=== PATIENT | male | born 1955 | race Caucasian/White ===

== ENCOUNTER 2017-11-11 05:31 | Inpatient (IN) | payer MEDICAID, SELFPAY ==
[2017-11-04 11:34] VITALS: BP 147/61; PULSE 70; RESP 18; TEMP 36.8; O2SAT 96; BMI 46.1
--- NOTE | 2017-11-04 11:39 | EKG12_ITS ---
Test Reason : Blood Pressure : / mmHG Vent. Rate : 070 BPM Atrial Rate : 070 BPM P-R Int : 222 ms QRS Dur : 112 ms QT Int : 404 ms P-R-T Axes : 023 018 028 degrees QTc Int : 436 ms Sinus rhythm with 1st degree A-V block Septal infarct , age undetermined Abnormal ECG Confirmed by CURTIS HADLEY, SOBEIDA ([id number]), book or script editor JAGDISH PASTRANA ([id number]) on 11/06/2017 1:04:22 PM Referred By: STUART Confirmed By:SOBEIDA ACEVEDO MD
[2017-11-04 13:24] LABS: Hemoglobin A1c 6.9 % (4.2-6.3)
[2017-11-04 13:43] LABS: Anion Gap 7 (5-15); BUN 22 mg/dL (7-18); BUN/Creat Ratio 25.1 RATIO (10-20); Calcium,Total 9.7 mg/dL (8.5-10.1); Chloride 103 mmol/L (98-107); Creatinine, Serum 0.88 mg/dL (0.70-1.30); EST Glomerular Filtration Rate 93 mL/min (>60); Est Glom Filt Rate - Afr Amer 113 mL/min (>60); Estimated Creatinine Clearance 79.29 ml/min; Glucose 95 mg/dL (74-106); Potassium 4.5 mmol/L (3.5-5.1); Sodium Level 139 mmol/L (136-145); Thyroid Stim Hormone (TSH) 0.86 uIU/mL (0.358-3.74)
[2017-11-11] VITALS (12 sets, daily range): BP systolic 119–146; BP diastolic 58–80; PULSE 65–97; RESP 16–20; TEMP 36–37.3; O2SAT 83–100; BMI 46.1
[2017-11-11] MEDS: oxyCODONE HCl Cr 10 MG Tablet PO (06:09)
[2017-11-11 06:25] LABS: Hematocrit 40.2 % (40-54); Hemoglobin 12.4 g/dl (13.0-16.5); Mean Corp Hgb Conc 30.8 g/gl (32-36); Mean Corpuscular Hgb 24.6 pg (27.0-32.0); Mean Corpuscular Volume 79.8 fL (80-94); Mean Platelet Vol. 9.2 fl (6.2-12.0); Platelet Count 252 K/mm3 (150-450); RBC Distribution Width CV 16.6 % (11.6-14.6); RBC Distribution Width SD 48.2 fl (35.1-43.9); Red Blood Count 5.04 M/mm3 (4.6-6.2); White Blood Count 5.6 K/mm3 (4.4-11.0)
[2017-11-11 06:27] LABS: Scan Indicated on CBC? Y/N NO
--- NOTE | 2017-11-11 06:50 | RAD_ITS ---
STUDY: X-RAY - RIGHT SHOULDER REASON FOR EXAM: Male, 62 years old. Postoperative study TECHNIQUE: 2 view(s) of the shoulder. COMPARISON: None. FINDINGS: Shoulder arthroplasty is seen in good alignment. There is degenerative arthrosis of the acromioclavicular joint without inferior osseous spur formation. Normal acromion. The soft tissue structures are unremarkable. Normal visualized pulmonary apex. RAD/Shoulder min 2 Views IMPRESSION: Shoulder arthroplasty is seen in good alignment. There is degenerative arthrosis of the acromioclavicular joint. Electronically Signed: Justus Valentine MD at 12:31 EDT Tel , Service support ,
[2017-11-11 07:00] LABS: Bedside Glucose 132 mg/dL (70-110)
--- NOTE | 2017-11-11 07:15 | SHO_PTH ---
PATIENT: SAUL STEELE LOC: MS3 U#:[id number] AGE/SX: 62/M ROOM: [facility] RE11/11/[address]: Elder Bosch DO : 1955 BED: 1 DIS: 11/12/2017 SPEC #: [id number] RECD: 11/11/17 10:01 STATUS: NOLAN DEREK #: [id number] LADY: 11/11/17 07:[address]: Elder Bosch DEPT: SURGICAL PATHOLOGY RECD BY: Azalia Lakhani ENTERED: 11/11/17 10:09 SP TYPE: HUMERUS OTHR DR: Dr. Akiko Lion MD Tissues: Humerus, NOS Procedures: Decalcification bone/plaque Surgery Specimen Level IV HEADER OPERATION: Shoulder replacement PRE-OP DIAGNOSIS: Nontraumatic complete tear of right rotator cuff, osteoarthritis of right shoulder TISSUE SUBMITTED: Humeral head MICROSCOPIC DIAGNOSIS Humeral head, total shoulder replacement: Humeral head with degenerative osteoarthritic changes. SJ:shen 11/14/17 MICROSCOPIC DESCRIPTION Slides are reviewed. GROSS DESCRIPTION Received is one container labeled with the patient's name and designated humeral head. The specimen consists of a humeral head measuring 6.5 x 6 x 2 cm. No soft tissue is identified. The articular surface shows areas of erosion, eburnation and osteophyte formation. Ceramics Machine Operator sections are submitted in one cassette after decalcification. / GREGG:shen 11/11/17 TC:5 [facility]: [id number], [id number]
[2017-11-11] MEDS: Clindamycin 900 MG/50 ML BAG 75 MG IV ×2 (07:21→15:14)
--- NOTE | 2017-11-11 09:23 | PCM.IMDPSTOP ---
Immediate Post-Op Note Date of Procedure: 11/11/17 Primary Surgeon/Physician: Elder Bosch DO stress analyst: Paulino Orta stress analyst: Margoth Christie Pre-Operative Diagnosis: Right shoulder rotator cuff arthropathy Post-Operative Diagnosis: Same as above Surgery/Procedure Performed:: Right shoulder reverse total shoulder arthroplasty-[place] Description of Surgical Findings:: See dictation Estimated Blood Loss: 100 Specimen's removed: Bone cuts Type of Anesthesia:: General/Regional ASA Class: ASA2 Mod Systematic Disease - Admit VTE Documentation VTE Present on Admission: No VTE Mechan Device Prophylaxis: SCD's, Knee High SMILEY Hose VTE Pharm Prophylaxis ordered?: No Reason prophylaxis not ordered:: Treatment Not Indicated
[2017-11-11 10:31] LABS: Bedside Glucose 151 mg/dL (70-110)
[2017-11-11] MEDS: Lactated Ringers 1,000 ML 75 ML IV (11:15)
[2017-11-11] MEDS: Senna/Docusate Sodium 1 Tablet 2 TABLET PO (11:17)
[2017-11-11] MEDS: Furosemide 20 MG Tablet 10 MG PO (11:17)
[2017-11-11] MEDS: Magnesium Oxide 400 MG Tablet PO (11:18)
[2017-11-11] MEDS: Cyanocobalamin 500 MCG Tablet PO (11:18)
[2017-11-11] MEDS: traMADol 50 MG Tablet PO ×2 (11:26→20:56)
[2017-11-12] MEDS: oxyCODONE 5 MG Tablet 10 MG PO ×2 (00:34→06:27)
[2017-11-12] MEDS: Clindamycin 900 MG/50 ML BAG 75 MG IV (00:35)
[2017-11-12] MEDS: Lactated Ringers 1,000 ML 75 ML IV (00:36)
[2017-11-12 02:20] VITALS: BP 143/73; PULSE 101; RESP 18; TEMP 37.5; O2SAT 94
[2017-11-12] MEDS: Levothyroxine 100 MCG Tablet 200 MCG PO (06:27)
--- NOTE | 2017-11-12 07:28 | PCM.DC.ORTHO ---
Discharge Activity: Return to Normal Activity, May not drive while taking narcotic pain medications., May Shower May shower in (days): 1 Ice area for (Minutes): 20 Lifting Restrictions: No lifting at this time. Additional Activity Instructions:: Active assist range of motion as tolerated in all planes. Sling for comfort. Call your doctor if your incision/area has: Continuous Slow Oozing, Sudden Increased Bleeding, Increased Pain/ Swelling, Increased Redness, Foul Smelling Discharge, Swelling at the incision site Call your doctor if you observe: Fever of 101 or Higher, Coldness, Increased Pain, Numbness or Tingling, Change in Color, Inability to urinate, Inability to have a bowel movement, Using more than one pad per hour, Shortness of breath, Dizziness, Fainting spells, Swelling in the ankles, Chest pain, Prolonged hiccoughing, Increased palpitations (irregular heartbeat), Calf discomfort, Uncontrolled pain Suture Line Care: Avoid Pulling/Pushing, Avoid Pinching/Bending Change Dressing in (Days):: 5 Remove Dressing in (days):: 5 Cleanse incision/area with: Soap & Water Additional Dressing/Incision Instructions:: Dressing stays on for a total 7 days. May shower at this time. Do not submerge wound. Allergies/Adverse Reactions: Allergies Penicillins Allergy (Verified 11/11/17 06:59) Unknown Medications to take at Discharge Amlodipine [Norvasc] 5 mg PO DAILY 10/31/16 Biotin 10,000 mcg PO BID 10/31/16 Bisacodyl [Dulcolax] 10 mg PO DAILY 10/31/16 Calcium Citrate/Vitamin D3 [Calcium Citrate-Vit D3 Tablet] 1 each PO BID 10/31/16 Celecoxib [Celebrex] 200 mg PO DAILY 10/31/16 Cholecalciferol (Vitamin D3) [Vitamin D3] 2,000 unit PO DAILY 10/31/16 Cyanocobalamin [Vitamin B12] 500 mcg PO DAILY@0800 10/31/16 Fluticasone 0.05% [Flonase Nasal [place]] 1 spray NASAL PRN PRN 10/31/16 Levothyroxine [Synthroid] 175 mcg PO SUTUTHSA 10/31/16 Levothyroxine [Synthroid] 200 mcg PO MOWEFR 10/31/16 Lisinopril [Zestril] 20 mg PO DAILY 10/31/16 Magnesium 400 mg PO DAILY 10/31/16 [place]-3/Dha/Epa/Fish Oil [Fish Oil 1,400 mg Softgel] 1 each PO DAILY 10/31/16 Ranitidine [Zantac] 150 mg PO DAILY 10/31/16 Torsemide [Demadex] 5 mg PO DAILY 10/31/16 Metformin HCl [Glucophage] 500 mg PO BIDCM 11/04/17 Docusate Sodium [Colace] 100 mg PO BID PRN PRN #10 cap 11/12/17 Oxycodone HCl/Acetaminophen [Percocet 5/325] 1 - 2 tablet PO Q4H PRN PRN #60 tablet 11/12/17 proMETHazine tablet [Phenergan] 25 mg PO Q4H PRN PRN #10 tab 11/12/17 The following prescriptions were given: Oxycodone HCl/Acetaminophen [Percocet 5/325] 1 - 2 tablet PO Q4H PRN PRN #60 tablet PRN Reason: Pain proMETHazine tablet [Phenergan] 25 mg PO Q4H PRN PRN #10 tab PRN Reason: Nausea Docusate Sodium [Colace] 100 mg PO BID PRN PRN #10 cap PRN Reason: Constipation Primary Care Physician: Akiko Lion MD [Primary Care Provider] - Please Follow Up With: Elder Bosch DO When: call [facility] for appt for 2 weeks Proposed Discharge Date: 11/12/17
--- NOTE | 2017-11-12 07:29 | PCM.OPRPT ---
Report of Operation Date of Procedure: 11/11/17 Pre-Operative Diagnosis: Right shoulder rotator cuff arthropathy Post-Operative Diagnosis: Same as above Surgery/Procedure Performed:: Right shoulder reverse total shoulder arthroplasty-[place] Description of Surgical Findings:: 62-year-old male with a history of right shoulder rotator cuff arthropathy. Having failed conservative measures and continued pain and difficulty with the right shoulder the patient elected for right shoulder reverse total shoulder arthroplasty. Patient was counseled and consented for the aforementioned procedure he was met in the holding area where the right upper extremity was marked and identified by the with surgeon. Patient was taken to the operating room in satisfactory condition with somewhat to place to identify patient operative procedure and limb. Patient received preoperative clindamycin and 1 g of TXa. Patient was then placed into a gentle lazy beachchair position of about 45-50? of head elevation. He was then prepped and draped in usual fashion. Patient underwent a standard deltopectoral approach with sharp dissection down to soft tissues and Bovie cautery 20 bleeding. The cephalic vein was retracted laterally. At that point time the clavipectoral fascia was identified. We could not make good identifications of the 3 sister vessels as we are just cautious during main portion the procedure. The coracoid the strap muscles were identified. There were released and gentle blunt dissection was undertaken to mobilize the soft tissues in the subscapular bursa. The CA ligament was released off the coracoid for better visualization. Patient did not have a biceps tendon had previously ruptured. We did identify the lesser tuberosity and then performed a opening of the capsule. The patient has significantly attenuated subscapularis was contracted and very thin I did not feel subscapularis reattachment will be necessary. At that point time we did our capsular release staying on the humeral neck moving down to resolve the fibers of the latissimus and then started to do gentle external rotation. As a capsule had been opened up that was remnant patient had a large return of sub-acromial bursal fluid and joint fluid. The head was then presented the patient had a bald head without really only remnant of his teres minor for rotator cuff tissue. We subsequent performed a standard 135? humeral head cut with using the trans-epicondylar axis to maintain her version. At that point time appropriate retractors were placed in order perform a circumferential capsule release around the glenoid to mobilize any remnant labral tissue for better visualization of the glenoid and also to allow posterior inferior placement of the head. Patient's glenoid did not show significant wear patterns or eccentric changes. At that point time with appropriate retractors in place in the head out of the way the initial central pin was placed with a 10? cephalic tilt. We then reamed accordingly in order to place a 28 mm baseplate. The baseplate was then fixed with a central cancellus screw for compression which was excellent. We then used 3 of the [address] locking screws for additional stability. This was all done using standard AO technique through the guide system of the [place] reunion shoulder system that we used. After copious irrigation the root of the joint and removal of any excess remnant tissues and loose bodies we then impacted a 32 mm glenoid sphere using standard technique. At that point time the humeral head was then re-subluxed anteriorly and we began preparation for the humeral stem. Canal finder's were introduced and so we sounded to a 12 mm position. At which point time we trialed up to a 12 mm stem and found this to be adequate for position and stability. We then trialed using a 32 mm diameter cup and eventually sized up to a +6 Ronel with excellent stability no signs of any instability or shock no signs of any inferior impingement or subscapular impingement through a range of motion. The hip was then dislocated trial components were removed and the joint re-irrigated copiously prior to implantation of our final components. We then impacted a size 12 stem 128 mm in overall length. And then impacted our Ronel head complex again with a +6 offset. Shoulder was then reduced stability rechecked and confirmed it would began our closure at that time. Again due to the subscapularis being very thin we did not reapproximate it. We subsequent band began soft tissue closure of the deltopectoral fascia using a #1 Vicryl in a running Krak?w technique to close down space. We then reapproximated the soft tissues with 3-0 Vicryl running subicular Monocryl Dermabond application and then subsequent placement of a Silverlon dressing. I was scrubbed and available time during our procedure. We had no drains or complications. Implants included the [place] reunion reverse total shoulder arthroplasty system with associated 20 mm baseplate, 32 mm glenoid sphere, multiple locking screws for the baseplate a #12 stem 20 mm in length, with an associated 32 mm humeral cup and a X3 humeral insert 32 mm +6. Patient admitted to the floor for 24 hours of IV antibiotics appropriate IV and p.o. pain medication DVT prophylaxis to include SCDs teds and early aggressive range of motion. Patient has a history of gastric bypass and is unable to take aspirin or NSAIDs. Any issues please contact me. There will be no restrictions to his range of motion at this point time as a subscapularis was not repaired. Patient will follow me in 2 weeks upon discharge to start outpatient physical therapy. transportation clerk: Paulino Orta transportation clerk: Margoth Christie Type of Anesthesia:: General/Regional Specimen's removed: Bone cuts Estimated Blood Loss (mL): 100 Grafts/Implants Used: [place] reunion reverse total shoulder arthroplasty system - Complications None - Admit VTE Documentation VTE Present on Admission: No VTE Mechan Device Prophylaxis: SCD's, Knee High SMILEY Hose VTE Pharm Prophylaxis ordered?: No Reason prophylaxis not ordered:: Medical Contraindication - History of gastric bypass and cannot have aspirin or NSAIDs.
--- NOTE | 2017-11-12 07:43 | OP.PCM_ITS ---
Report of Operation Date of Procedure: 11/11/17 Pre-Operative Diagnosis: Right shoulder rotator cuff arthropathy Post-Operative Diagnosis: Same as above Surgery/Procedure Performed:: Right shoulder reverse total shoulder arthroplasty -[place] Description of Surgical Findings:: 62-year-old male with a history of right shoulder rotator cuff arthropathy. Having failed conservative measures and continued pain and difficulty with the right shoulder the patient elected for right shoulder reverse total shoulder arthroplasty. Patient was counseled and consented for the aforementioned procedure he was met in the holding area where the right upper extremity was marked and identified by the with surgeon. Patient was taken to the operating room in satisfactory condition with somewhat to place to identify patient operative procedure and limb. Patient received preoperative clindamycin and 1 g of TXa. Patient was then placed into a gentle lazy beachchair position of about 45-50? of head elevation. He was then prepped and draped in usual fashion. Patient underwent a standard deltopectoral approach with sharp dissection down to soft tissues and Bovie cautery 20 bleeding. The cephalic vein was retracted laterally. At that point time the clavipectoral fascia was identified. We could not make good identifications of the 3 sister vessels as we are just cautious during main portion the procedure. The coracoid the strap muscles were identified. There were released and gentle blunt dissection was undertaken to mobilize the soft tissues in the subscapular bursa. The CA ligament was released off the coracoid for better visualization. Patient did not have a biceps tendon had previously ruptured. We did identify the lesser tuberosity and then performed a opening of the capsule. The patient has significantly attenuated subscapularis was contracted and very thin I did not feel subscapularis reattachment will be necessary. At that point time we did our capsular release staying on the humeral neck moving down to resolve the fibers of the latissimus and then started to do gentle external rotation. As a capsule had been opened up that was remnant patient had a large return of sub- acromial bursal fluid and joint fluid. The head was then presented the patient had a bald head without really only remnant of his teres minor for rotator cuff tissue. We subsequent performed a standard 135? humeral head cut with using the trans-epicondylar axis to maintain her version. At that point time appropriate retractors were placed in order perform a circumferential capsule release around the glenoid to mobilize any remnant labral tissue for better visualization of the glenoid and also to allow posterior inferior placement of the head. Patient's glenoid did not show significant wear patterns or eccentric changes. At that point time with appropriate retractors in place in the head out of the way the initial central pin was placed with a 10? cephalic tilt. We then reamed accordingly in order to place a 28 mm baseplate. The baseplate was then fixed with a central cancellus screw for compression which was excellent. We then used 3 of the [address] locking screws for additional stability. This was all done using standard AO technique through the guide system of the [place] reunion shoulder system that we used. After copious irrigation the root of the joint and removal of any excess remnant tissues and loose bodies we then impacted a 32 mm glenoid sphere using standard technique. At that point time the humeral head was then re-subluxed anteriorly and we began preparation for the humeral stem. Canal finder's were introduced and so we sounded to a 12 mm position. At which point time we trialed up to a 12 mm stem and found this to be adequate for position and stability. We then trialed using a 32 mm diameter cup and eventually sized up to a +6 Ronel with excellent stability no signs of any instability or shock no signs of any inferior impingement or subscapular impingement through a range of motion. The hip was then dislocated trial components were removed and the joint re- irrigated copiously prior to implantation of our final components. We then impacted a size 12 stem 128 mm in overall length. And then impacted our Ronel head complex again with a +6 offset. Shoulder was then reduced stability rechecked and confirmed it would began our closure at that time. Again due to the subscapularis being very thin we did not reapproximate it. We subsequent band began soft tissue closure of the deltopectoral fascia using a #1 Vicryl in a running Krak?w technique to close down space. We then reapproximated the soft tissues with 3-0 Vicryl running subicular Monocryl Dermabond application and then subsequent placement of a Silverlon dressing. I was scrubbed and available time during our procedure. We had no drains or complications. Implants included the [place] reunion reverse total shoulder arthroplasty system with associated 20 mm baseplate, 32 mm glenoid sphere, multiple locking screws for the baseplate a #12 stem 20 mm in length, with an associated 32 mm humeral cup and a X3 humeral insert 32 mm +6. Patient admitted to the floor for 24 hours of IV antibiotics appropriate IV and p.o. pain medication DVT prophylaxis to include SCDs teds and early aggressive range of motion. Patient has a history of gastric bypass and is unable to take aspirin or NSAIDs. Any issues please contact me. There will be no restrictions to his range of motion at this point time as a subscapularis was not repaired. Patient will follow me in 2 weeks upon discharge to start outpatient physical therapy. test deck supervisor: Paulino Orta test deck supervisor: Margoth Christie Type of Anesthesia:: General/Regional Specimen's removed: Bone cuts Estimated Blood Loss (mL): 100 Grafts/Implants Used: [place] reverse total shoulder arthroplasty system - Complications None - Admit VTE Documentation VTE Present on Admission: No VTE Mechan Device Prophylaxis: SCD's, Knee High SMILEY Hose VTE Pharm Prophylaxis ordered?: No Reason prophylaxis not ordered:: Medical Contraindication - History of gastric bypass and cannot have aspirin or NSAIDs.
--- NOTE | 2017-11-12 07:44 | PCM.PN.ORT ---
Subjective: Postop day 1 status post right reverse total shoulder arthroplasty. No issues overnight. Pain is controlled at this point time. Patient will see OT and PT and they be discharged home later today as long as his pain is controlled. Currently sitting upright in chair using sling which was removed to allow him to start some gentle range of motion about the elbow and shoulder joint. - Physical Exam General: Alert, Oriented x3, Cooperative, No apparent distress Musculoskeletal: - - Patient remains distally neurovascular intact. Muscle cutaneous axillary nerve function is 5 out of 5. He has no expanding hematoma. Lab values are pending. Hardware otherwise well seated well-placed on x-ray review. Vital Signs Temp Pulse Resp BP Pulse Ox 99.5 F H 101 H 18 143/73 H 94 11/12/17 02:20 11/12/17 02:20 11/12/17 02:20 11/12/17 02:20 11/12/17 02:20 Oxygen Flow Rate (L/min) 2 Oxygen Delivery Method Room Air Weight: 294 lb 12.128 oz Body Mass Index (BMI) 46.1 Finger Stick Blood Glucose 151 Intake and Output for Last 24 Hours 11/10/17 11/11/17 11/12/17 23:59 23:59 23:59 Intake Total 2567 / 2567 1727 / 1727 Output Total 1025 / 1025 Balance 2567 / 2567 702 / 702 POC Glucose 11/11/17 10:17 POC Glucose 151 H Medical Necessity - Tobacco Use Smoking Status: Former smoker Assessment/Plan Assessment: Aftercare orthopedics status post right reverse total shoulder arthroplasty for rotator cuff arthropathy. Doing well. Plan: At this point time patient will be able to be discharged home after OT PT evaluation today. Discharge medications have been placed to the [facility] pharmacy. Patient will follow with me in 2 weeks for a wound check. He can remove his dressing in 5 days but may shower at this time. Patient is encouraged to use a sling really only for comfort otherwise he can start active and active assist range of motion as tolerated. Any major issues please contact me.
[2017-11-12 08:02] VITALS: BP 131/74; PULSE 93; RESP 18; TEMP 36.7; O2SAT 94
[2017-11-12 08:09] LABS: Absolute Lymphocyte Count 1.37 X10^3/ul (0.83-4.51); Absolute Neutrophil Count 7.6 X10^3/uL (2.0-7.7); Basophil# 0.02 X10^3/uL; Basophil% 0.2 % (0-1); Eosinophil# 0.08 X10^3/uL; Eosinophils% 0.8 % (0-5); Hematocrit 34.9 % (40-54); Lymphocyte # 1.37 X10^3/ul (4.0); Lymphocyte % 13.6 % (19-41); Mean Corp Hgb Conc 31.5 g/gl (32-36); Mean Corpuscular Hgb 25.1 pg (27.0-32.0); Mean Corpuscular Volume 79.5 fL (80-94); Mean Platelet Vol. 9.2 fl (6.2-12.0); Monocyte# 1.06 X10^3/uL; Monocyte% 10.5 % (0-10); Neutrophil # 7.56 X10^3/uL (2.7-7.7); Neutrophil % 74.7 % (47-70); Platelet Count 254 K/mm3 (150-450); RBC Distribution Width CV 16.7 % (11.6-14.6); RBC Distribution Width SD 47.8 fl (35.1-43.9); Red Blood Count 4.39 M/mm3 (4.6-6.2); White Blood Count 10.1 K/mm3 (4.4-11.0)
[2017-11-12] MEDS: Cyanocobalamin 500 MCG Tablet PO (08:11)
[2017-11-12 08:19] LABS: POSITIVE COUNT NO; POSITIVE DIFFERENTIAL NO; POSITIVE MORPHOLOGY NO
[2017-11-12 08:24] LABS: Anion Gap 5 (5-15); BUN 13 mg/dL (7-18); BUN/Creat Ratio 17.9 RATIO (10-20); Calcium,Total 8.3 mg/dL (8.5-10.1); Chloride 102 mmol/L (98-107); Creatinine, Serum 0.73 mg/dL (0.70-1.30); EST Glomerular Filtration Rate 115 mL/min (>60); Est Glom Filt Rate - Afr Amer 139 mL/min (>60); Estimated Creatinine Clearance 95.58 ml/min; Glucose 137 mg/dL (74-106); Potassium 4.3 mmol/L (3.5-5.1); Sodium Level 138 mmol/L (136-145)
[2017-11-12] MEDS: Lisinopril 20 MG Tablet PO (10:11)
[2017-11-12] MEDS: Celecoxib 200 MG Capsule PO (10:11)
[2017-11-12] MEDS: Furosemide 20 MG Tablet 10 MG PO (10:12)
[2017-11-12] MEDS: Magnesium Oxide 400 MG Tablet PO (10:12)
[2017-11-12] MEDS: amLODIPine 5 MG Tablet PO (10:12)
--- NOTE | 2017-11-12 10:15 | CASEMGMT ---
RN FORD Face to Face with patient for initial transition planning/care coordination assessment. RN CM introduced self and role at [facility]. Patient sitting in chair, alert and oriented, at bedside. Patient willing to participate in assessment and is able to answer all questions appropriately. Care providers, pharmacy, and demographics verified. See link attached. Patient wishes to discharge home, denies need for home health at this time. Patietn states he has no further needs or concerns at this time. CM to follow for discharge planning needs that may arise. Disposition Plan: Patient to discharge home with family support and follow-up plans in place.
== END 2017-11-12 11:01 | disposition home or self-care (01) | DRG 491 ==
PROVIDERS: Anesthesiology; Admitting Provider Orthopaedic Surgery; Family Provider Family Medicine; PCP Family Medicine; Visit Provider Orthopaedic Surgery
PROC: (CPT 23472; principal; 2017-11-11 06:45)
DX: M19.011 Primary osteoarthritis, right shoulder (principal); M75.121 Complete rotator cuff tear or rupture of right shoulder, not specified as traumatic; I10 Essential (primary) hypertension; G47.30 Sleep apnea, unspecified; K21.9 Gastro-esophageal reflux disease without esophagitis; E11.9 Type 2 diabetes mellitus without complications; E06.9 Thyroiditis, unspecified; Z96.611 Presence of right artificial shoulder joint; Z98.84 Bariatric surgery status; Z87.891 Personal history of nicotine dependence; Z87.442 Personal history of urinary calculi; Z79.84 Long term (current) use of oral hypoglycemic drugs; Z79.899 Other long term (current) drug therapy
CPT/HCPCS: 36415; 73030; 80048; 82962; 83036; 84443; 85025; 85027; 87081; 88305; 88311; 97116; 97162; 97166; 97530; J7120; J2405

== ENCOUNTER → 2017-12-31 12:32 | Outpatient (CLI) | payer MEDICAID, SELFPAY ==
--- NOTE | 2017-12-31 12:34 | RAD_ITS ---
STUDY: X-RAY - RIGHT SHOULDER REASON FOR EXAM: Replacement follow-up. TECHNIQUE: 3 view(s) of the shoulder. COMPARISON: Radiographs 11/11/2017 and 09/12/2015. FINDINGS: There is a reverse shoulder arthroplasty without evidence of complication. There is acromioclavicular arthrosis. Normal acromion. There is a chronic ossification at the posterior aspect of the shoulder demonstrated on the scapular Y view and unchanged dating back to the preoperative study. Normal visualized pulmonary apex. RAD/Shoulder min 2 Views IMPRESSION: Uncomplicated right shoulder arthroplasty. Electronically Signed: Tomasz Dan MD at 10:51 EDT Tel , Service support ,
== END ==
PROVIDERS: Family Provider Family Medicine; PCP Family Medicine; Visit Provider Orthopaedic Surgery
DX: M25.511 Pain in right shoulder (principal)
CPT/HCPCS: 73030

== ENCOUNTER → 2018-04-02 10:20 | Outpatient (CLI) | payer MEDICAID, SELFPAY ==
--- NOTE | 2018-04-02 10:21 | RAD_ITS ---
STUDY: X-RAY - RIGHT SHOULDER REASON FOR EXAM: Male, 62 years old. Follow-up after right total shoulder arthroplasty. TECHNIQUE: 3 view(s) of the shoulder. COMPARISON: December 31, 2017 FINDINGS: There is stable generalized osteopenia. A right total shoulder arthroplasty is stable in position and alignment. No complications are noted. There is arthrosis of the acromioclavicular joint unchanged. The soft tissue structures are unremarkable. Normal visualized pulmonary apex. RAD/Shoulder min 2 Views IMPRESSION: Stable osteopenia with uncomplicated total shoulder arthroplasty. Stable mild arthrosis of the acromioclavicular joint. Electronically Signed: Leonardo Morfin MD at 17:14 EDT , Service support ,
== END ==
PROVIDERS: Family Provider Family Medicine; PCP Family Medicine; Visit Provider Orthopaedic Surgery
DX: L02.413 Cutaneous abscess of right upper limb (principal); L03.119 Cellulitis of unspecified part of limb
CPT/HCPCS: 73030; 87070; 87075; 87205

== ENCOUNTER → 2018-04-03 11:48 | Outpatient (CLI) | payer MEDICAID, SELFPAY ==
[2018-04-03 13:18] LABS: M R Staph aureus DNA By PCR Negative (Negative); Probe Check PASS; Specimen Processing Control PASS; Staph aureus DNA By PCR NEGATIVE (Negative)
== END ==
PROVIDERS: Visit Provider Specialist
DX: L02.413 Cutaneous abscess of right upper limb (principal)
CPT/HCPCS: 87205; 87640

== ENCOUNTER → 2018-04-06 08:30 | Outpatient (CLI) | payer MEDICAID, SELFPAY ==
[2018-04-06 08:19] VITALS: BP 144/81; PULSE 78; RESP 18; TEMP 36.7; O2SAT 97; BMI 46.5
[2018-04-06 09:38] LABS: Absolute Lymphocyte Count 1.79 X10^3/ul (0.83-4.51); Absolute Neutrophil Count 5.9 X10^3/uL (2.0-7.7); Basophil# 0.02 X10^3/uL; Basophil% 0.2 % (0-1); Eosinophils% 1.2 % (0-5); Hematocrit 37.7 % (40-54); Hemoglobin 11.4 g/dl (13.0-16.5); Lymphocyte # 1.79 X10^3/ul (4.0); Lymphocyte % 20.9 % (19-41); Mean Corp Hgb Conc 30.2 g/gl (32-36); Mean Corpuscular Hgb 23.2 pg (27.0-32.0); Mean Corpuscular Volume 76.8 fL (80-94); Mean Platelet Vol. 8.8 fl (6.2-12.0); Monocyte# 0.76 X10^3/uL; Monocyte% 8.9 % (0-10); Neutrophil # 5.86 X10^3/uL (2.7-7.7); Neutrophil % 68.6 % (47-70); Platelet Count 323 K/mm3 (150-450); RBC Distribution Width CV 16.7 % (11.6-14.6); Red Blood Count 4.91 M/mm3 (4.6-6.2); White Blood Count 8.6 K/mm3 (4.4-11.0)
[2018-04-06 09:39] LABS: POSITIVE COUNT NO; POSITIVE DIFFERENTIAL NO; POSITIVE MORPHOLOGY NO
[2018-04-06 10:09] LABS: Hemoglobin A1c 7.2 % (4.2-6.3)
[2018-04-06 10:12] LABS: BUN 21 mg/dL (7-18); Creatinine, Serum 0.73 mg/dL (0.70-1.30); Estimated Creatinine Clearance 95.58 ml/min; Glucose 144 mg/dL (74-106)
[2018-04-06 10:13] LABS: Anion Gap 9 (5-15); BUN/Creat Ratio 28.8 RATIO (10-20); Calcium,Total 9.2 mg/dL (8.5-10.1); Chloride 102 mmol/L (98-107); EST Glomerular Filtration Rate 115 mL/min (>60); Est Glom Filt Rate - Afr Amer 139 mL/min (>60); Potassium 4.2 mmol/L (3.5-5.1); Sodium Level 139 mmol/L (136-145); Thyroid Stim Hormone (TSH) 1.17 uIU/mL (0.358-3.74)
--- NOTE | 2018-04-06 12:44 | HP.PCM_ITS ---
History and Physical DATE OF SURGERY: 04/07/2018 SCHEDULED PROCEDURE: irrigation and debridement with placement of antibiotic spacer right shoulder HISTORY OF PRESENT ILLNESS: . Patient is left-hand dominant. Pain is been present for the past 4 months. Patient states he initially had his shoulder pain improved following surgery. However he developed redness around the incision at the time of surgery. He began getting swelling in this area 2 months postoperatively. Patient then began getting drainage over this area. He did go to urgent care and was placed on antibiotics. Patient had an abscess in this area. This was drained which appeared to be purulent. Cultures were sent. Patient has had a previous history of staph infection after her abdominal surgery. Patient did have a previous right reverse total shoulder arthroplasty by Dr. Bosch in November 2017. He currently denies any numbness and tingling. Patient has medical history pertinent for type 2 diabetes mellitus as well as hypertension and peripheral vascular disease. He currently denies any chest pain, shortness of breath, fevers chills, recent infections. Patient has also had a previous history of gastric sleeve in 2013. He has had multiple total joint replacements in the past. REVIEW OF SYSTEMS: ROS: Const: Denies change in appetite, fever and weight change. CV: Denies chest pain, heart murmur and irregular heartbeat. Resp: Denies cough, pneumonia, shortness of breath, tuberculosis and wheezing. GI: Reports diarrhea and heartburn, but denies constipation, nausea, rectal itching, bloody stools and vomiting. : Denies incontinence. Musculo: Reports leg swelling, but denies pain, trouble walking and weakness. Skin: Denies Raynaud's, history of shingles and tattoo. Neuro: Denies ambulatory dysfunction, dizziness, numbness/tingling and tremor. Psych: Denies anxiety, insomnia and stress. Hesham/Lymph: Denies anemia, bleeding/bruising tendency and past transfusion. Reviewed, no changes. PAST MEDICAL HISTORY: Advance Care Plan: No Advance Directives Effective Date: 04/03/2018 PMH: Medical Problems: Arthritis, Diabetes, Hard of Hearing, High Blood Pressure, Thyroid Disease, Vascular Disease/ Peripheral Accidents: None Surgical Hx: Knee Arthroscopy Lt - (1980) Hip Replacement LT - (05/2017) Knee Replacement Lt, Knee Replacement Rt Gastric Sleeve - (2013) DR. FORD@[facility] RT Reverse Total Shoulder - (11/2017) DR BOSCH--[facility] Anesthesia Complications: None Assistive Devices: Glasses, Hearing Aid Reviewed, no changes. 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 Personal Habits: Cigarette Use: Former.Smokeless Tobacco: Never Used Smokeless Tobacco.Alcohol: Has consumed alcohol in the past.Drug Use: Former Illegal Drug User - (04/03/2018), Denies Use.Enjoy Exercising: Exercises 1-3 x/month. Reviewed, no changes. VITALS: Ht: 66 Wt: 301lb Wt k.534 BMI: 48.6 BP: 138/80 Pulse: 78 Resp: 22 T: 99.2 T: 37.3C ALLERGIES: No Known Drug Allergy MEDICATIONS: Metformin HCL 500 mg 1 tab PO bid, Lisinopril 20 mg 1 tab PO daily, Amlodipine Besylate 5 mg 1 tab PO daily, Levothyroxine Sodium 175 mcg 1 tab PO friday, ,friday and friday, Celecoxib 200 mg 1 cap PO daily, Oxybutynin Chloride ER 10 mg 1 tab PO daily, Vitamin B12 1 tab PO daily, Magnesium 250 mg 1 tab PO daily, Vitamin D 1 tab PO daily, Fish Oil 1 tab PO bid, Multivitamin 1 tab PO daily, Levothyroxine Sodium 200 mcg 1 tab PO friday,friday and friday, Eq Chlortabs 4 mg 1 tab PO bid PRE-OP EXAM: General appearance:NORMAL Other: Eyes: Conjunctivae and lids: NORMAL Pupils: ERR Ears, Nose, Mouth, and Throat: NORMAL Other: Inspection of lips, teeth and gums: NORMAL Other: Neck: Examination of neck: no masses noted. Respiratory: Assessment of respiratory effort: NORMAL Other: Auscultation of lungs: clear to auscultation no wheezes, rhonchi or rales. Cardiovascular: Auscultation of heart: regular rate and rhythm, no murmurs, gallops or rubs. Exam of carotid arteries: NORMAL Other: Gastrointestinal: Exam of abdomen: soft, nontender, nondistended bowel sounds present. PHYSICAL EXAMINATION: Evaluation of right shoulder shows area approximately middle one third of the incision with swelling. Range of motion right shoulder external rotation to neutral and internal rotation to gluteus. Forward elevation to 110. Sensation intact to light touch. IMAGING STUDIES: Previous x-rays at [facility] show a well aligned reverse total shoulder arthroplasty. IMPRESSION: 1. Painful right total shoulder arthroplasty with abscess and drainage from incision 2. Type 2 diabetes mellitus 3. Hypertension 4. Peripheral vascular disease 5. Thyroid disease PLAN: Dr. Mix did discuss and review with the patient all treatment options including surgical versus nonsurgical options. Patient does wish to proceed with the above-stated procedure. Potential risks, benefits, and complications of the procedure were discussed in detail including but not limited to , infection, nerve and blood vessel damage, persistent pain, numbness, tingling, paresthesias, blood clot, pulmonary embolism, and requirement for possible further surgery. The patient expressed full understanding and has no further questions for the doctor. Patient does agree to proceed with the above-stated procedure and has signed the surgery consent form. ___ I have re-examined the patient. There are no clinical changes since date of exam. ___ See progress notes for changes. ___ Dictated on admission Date: Time: Signature:
== END ==
LOC: ACINP 04-08 10:30 → PAT 04-17 11:43
PROVIDERS: Family Provider Family Medicine; PCP Family Medicine; Referring Provider Specialist; Visit Provider Specialist
DX: Z01.818 Encounter for other preprocedural examination (principal); E07.9 Disorder of thyroid, unspecified; E11.9 Type 2 diabetes mellitus without complications
CPT/HCPCS: 36415; 80048; 83036; 84443; 85025; 87081; J7120; J3260

== ENCOUNTER → 2018-04-29 10:06 | Day surgery (SDC) | payer MEDICAID, SELFPAY ==
[2018-04-29] VITALS (8 sets, daily range): BP systolic 123–162; BP diastolic 67–82; PULSE 44–94; RESP 15–18; TEMP 35.9–37.4; O2SAT 88–100; BMI 46.5
--- NOTE | 2018-04-29 | ABS_PTH ---
PATIENT: SAUL STEELE LOC: U#:[id number] AGE/SX: 69/M ROOM: RE04/29/[address]: Dr. Kenny Mix MD : [id number] BED: DIS: SPEC #: [id number] RECD: 04/29/18 14:03 STATUS: NOLAN DEREK #: [id number] LADY: 04/29/18 00:[address]: Kenny Mix DEPT: SURGICAL PATHOLOGY RECD BY: Minh Byrne ENTERED: 04/29/18 14:03 SP TYPE: Abscess OTHR DR: Dr. Akiko Lion MD Tissues: Shoulder, NOS Procedures: Surgery Specimen Level III HEADER OPERATION: Right shoulder, superficial I & D, excision sinus tract PRE-OP DIAGNOSIS: Painful right total shoulder arthroplasty with abscess and drainage from incision TISSUE SUBMITTED: Sinus tract right shoulder MICROSCOPIC DIAGNOSIS Sinus tract right shoulder: Pieces of skin and soft tissue with focal ulceration, associated acute inflammation and granulation tissue reaction. GREGG:shen 04/30/18 MICROSCOPIC DESCRIPTION Slides are reviewed. GROSS DESCRIPTION Received in fixative is one container labeled with the patient's name and designated sinus tract right shoulder. The specimen consists of a piece of mcarthur-white skin ellipse measuring 2 x 1 cm and up to 0.5 cm in thickness. A raised pink nodule is noted on the surface and measures 0.5 cm in greatest dimension. The specimen is inked, serially sectioned and submitted entirely in one cassette. / GREGG:shen 04/29/18 TC:2 CPT: 68106
[2018-04-29] MEDS: Acetaminophen 500 MG Tablet 1000 MG PO (10:37)
[2018-04-29] MEDS: oxyCODONE HCl Cr 10 MG Tablet PO (10:38)
[2018-04-29] MEDS: Celecoxib 200 MG Capsule 400 MG PO (10:38)
--- NOTE | 2018-04-29 12:46 | PCM.OPRPT ---
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 Draining sinus tract communicated with this. Cultures were sent. This did not communicate deep to the fascia or muscle. furniture sander: Rudy Holliday Type of Anesthesia:: General Anesthesiologist: Dionisio Garcia Special Medications: 2 g Ancef, 1 g TXA at incision, 1 g TXA closure, 10 mg Decadron, joint cocktail (5 mg Duramorph, 30 mL of 0.5% Ropivicaine, 1000 units of epinephrine, 30 mg of Toradol), 1 g vancomycin IV throughout case Specimen's removed: Sinus tract was sent to pathology, 2 culture specimens were sent to microbiology Estimated Blood Loss (mL): 25 Fluids Replaced: 400 mL crystalloid Description of Procedure: On the date of the procedure patient's right shoulder was marked in the preoperative area. Patient was brought back to the operating room where there transferred to the table in the supine position. Anesthesia assumed control the C-spine airway and administered general anesthetic. They remain to control the C-spine and airway throughout the remainder the procedure. Patient was placed in the beachchair position at about 40 degrees inclination. Head was appropriately secured. All bony prominences were identified and well-padded. At this time the right upper extremity was prepped in a sterile fashion. The surgeon scrubbed. Upon reentering the room the right upper extremity was draped in a standard orthopedic fashion. Timeout was called. When agreed upon the side, the site, the procedure to be performed, patient's identity and antibiotics given. Skin was marked out using previous incision ellipsing out the superficial area of the sinus tract which was healed over at this time. Ioban dressing was placed. Incision was then taken down through skin subtenons tissue fat down to fascia. We excised the sinus tract and sent to pathology. We then follow the sinus tract down to the fascia. Hemostasis was obtained. Wound was vikram eat out normal saline 3 L under low-pressure lavage. At this time we are unable to probe deep to the fascia through the intermuscular plane. The lining of the cyst was aggressively debrided and removed. 2 cultures were sent 1 of the lining 1 of the fluid. Once the lining had been appropriately debrided and excised excising skin subcutaneous tissue fat down to fascia we could not probe through the fascia communicating with the joint of the prosthesis. Based on the timing of the patient's sinus which was 2 months after his initial surgery lack of other signs of infection as well as lack of previous cultures will patient was not on antibiotics and based on our preoperative discussion in the office we elected to stop at this point. Wound was once again copiously irrigated irrigated out with normal saline. Deep tissues were closed with #1 Vicryl. Skin was closed with 2-0 Vicryl and nylon. Sterile dressing was placed. Patient was awakened by anesthesia and transferred to the PACU for recovery under stable condition. Postop plan: Patient will remain on doxycycline until final cultures are received. Patient understands further concerns of infection would likely lead to more aggressive treatment for prosthetic infection. - Complications None - Admit VTE Documentation VTE Present on Admission: No VTE Mechan Device Prophylaxis: SCD's VTE Pharm Prophylaxis ordered?: No Reason prophylaxis not ordered:: Treatment Not Indicated
[2018-04-29 13:36] LABS: Bedside Glucose 116 mg/dL (70-110)
[2018-04-29 13:55] LABS: Bedside Glucose 102 mg/dL (70-110)
== END ==
PROVIDERS: Anesthesiology; Family Provider Family Medicine; PCP Family Medicine; Referring Provider Specialist; Visit Provider Specialist
PROC: (CPT 10180; principal; 2018-04-29 12:15)
DX: T81.41XA Infection following a procedure, superficial incisional surgical site, initial encounter (principal); L02.413 Cutaneous abscess of right upper limb; Z96.611 Presence of right artificial shoulder joint; E11.9 Type 2 diabetes mellitus without complications; I10 Essential (primary) hypertension; I73.9 Peripheral vascular disease, unspecified; E07.9 Disorder of thyroid, unspecified; G47.30 Sleep apnea, unspecified; K21.9 Gastro-esophageal reflux disease without esophagitis; Z87.891 Personal history of nicotine dependence; Z87.442 Personal history of urinary calculi; Z79.84 Long term (current) use of oral hypoglycemic drugs; Z79.899 Other long term (current) drug therapy
CPT/HCPCS: 00400; 10180; 36415; 82962; 84484; 87015; 87070; 87075; 87102; 87116; 87205; 87206; 88304; 93005; J7040; J7120; J2405; J3260

== ENCOUNTER 2018-06-12 11:30 | Outpatient (RCR) | payer MEDICAID, SELFPAY ==
[2018-05-19 15:58] VITALS: BP 149/78; PULSE 102; RESP 18; TEMP 37.3; BMI 46.3
--- NOTE | 2018-05-19 17:17 | PCM.WC.HP ---
(1) Non-healing surgical wound Status: Acute Current Visit: Yes Code(s): T81.89XA - Other complications of procedures, not elsewhere classified, initial encounter (2) Cutaneous abscess of right upper limb Status: Acute Current Visit: Yes Code(s): L02.413 - Cutaneous abscess of right upper limb (3) Presence of right artificial shoulder joint Status: Chronic Current Visit: Yes Code(s): Z96.611 - Presence of right artificial shoulder joint (4) Type 2 diabetes mellitus Status: Acute Current Visit: Yes Code(s): E11.9 - Type 2 diabetes mellitus without complications (5) History of gastric restrictive surgery Status: Chronic Current Visit: Yes Code(s): Z98.84 - Bariatric surgery status History of Present Illness Date of Service: 05/19/18 Chief Complaint: Non healing surgical wound on right shoulder. History of Wound: Patient had right reverse total shoulder arthroplasty by Dr. Bosch in November 2017. He developed redness around the incison at the time of surgery. He began getting swelling in this area 2 months postoperatively. He started to get drainage and went to urgent care and was placed on antibiotics. He had an abscess that was drained. X-rays of right shoulder in December and March were normal. 04/02/18 culture of pustule of right shoulder was negative. 04/06/18 Nasal MRSA swab was negative. 04/07/18 He had irrigation and debridement with placement of antibiotic spacer of his right shoulder by Dr. Mix. 04/29/18- Right shoulder irrigation debridement with sinus tract excision. Wound cultures were negative. Patient has been on doxycycline since this surgery. He continues to have drainage from this right shoulder incision/wound. He has been referred to the wound center for further evaluation of his right shoulder incision/wound. Past Medical History Past Medical History: Chronic Problems (Last Updated 03/30/18 @ 16:10 by Therese Cesar) Presence of right artificial shoulder joint (Chronic) History of gastric restrictive surgery (Chronic) Past Medical History: HTN, PVD Surgical History: - - History of Gastric Sleeve 2013 Allergies/Adverse Reactions: Allergies No Known Allergies Allergy (Verified 04/06/18 08:12) Home Medications: Ambulatory Orders Medication Instructions Recorded Biotin 10,000 mcg PO BID 10/31/16 Calcium Citrate/Vitamin D3 1 ea PO BID 10/31/16 [Calcium Citrate-Vit D3 Tablet] Cholecalciferol (Vitamin D3) 2,000 unit PO DAILY 10/31/16 [Vitamin D3] Cyanocobalamin [Vitamin B12] 500 mcg PO DAILY@0800 10/31/16 Fluticasone 0.05% [Flonase Nasal 1 spray NASAL PRN PRN 10/31/16 [place]] Levothyroxine [Synthroid] 175 mcg PO SUTUTHSA 10/31/16 Levothyroxine [Synthroid] 200 mcg PO MOWEFR 10/31/16 Lisinopril [Zestril] 20 mg PO DAILY 10/31/16 Magnesium 400 mg PO DAILY 10/31/16 [place]-3/Dha/Epa/Fish Oil [Fish Oil 1 ea PO BID 10/31/16 1,400 mg Softgel] Ranitidine [Zantac] 150 mg PO DAILY 10/31/16 Torsemide [Demadex] 5 mg PO DAILY 10/31/16 Metformin HCl [Glucophage] 500 mg PO BIDCM 11/04/17 Docusate Sodium [Colace] 100 mg PO BID PRN PRN #10 cap 11/12/17 celecoxib 200 mg capsule 200 mg PO DAILY 03/30/18 Acetaminophen [Tylenol] 1,000 mg PO Q8 tablet 04/29/18 Doxycycline 100 mg PO BID #30 capsule 04/29/18 Ensure Enlive 120 ml PO TID liquid 04/29/18 traMADol [Ultram] 50 - 100 mg PO Q6H PRN PRN #20 04/29/18 tablet Smoking Status: Former smoker Review of Systems Constitutional: Denies: Anorexia, Chills, Fever Eyes: Denies: Pain, Vision Change HEENT: Denies: Difficulty Hearing, Difficulty Swallowing, Sinus Congestion Cardiovascular: Denies: Chest Pain, Palpitations Respiratory: Denies: Cough, Shortness of Breath Gastrointestinal: Denies: Diarrhea, Nausea, Vomiting Musculoskeletal: Reports: Joint Tenderness - Right shoulder tenderness at incision site Skin: Reports: Wounds - Right anterior shoulder incision. Neurological: Denies: Balance problems, Blurred vision, Difficulty swallowing, Headaches Psychiatric: Denies: Anxiety, Depression Endocrine: Denies: Heat/ Cold Intolerance, Polydipsia, Polyuria - Physical Exam Vital Signs Temp Pulse Resp BP 99.1 F 102 H 18 149/78 H 05/19/18 15:58 05/19/18 15:58 05/19/18 15:58 05/19/18 15:58 General: Alert, Oriented x3, Cooperative HEENT: Atraumatic, PERRLA, EOMI Oral: Moist Mucosa Lungs: Clear to auscultation, Normal air movement, No rhonchi Cardiovascular: Regular rate, Regular Rhythm Extremities: Diminished Peripheral Pulses, Edema - Patient has a history of lower extremity lymphadema Skin: Ulcer/ Wound - Right anterior shoulder incision/wound with surgical sutures intact. There is a significant amount of clear serous drainage from the incision. Able to insert the stick end of a cotton applicator along the entire suture line. When pressing on incision serous drainage drains from the wound at opening at both ends of the incision/wound. Wound Measurements and Assessment WC - Nurse 1 - General Ulcer Measurement Start: 05/19/18 15:58 Freq: Status: Active Protocol: Activity Type Activity Date Activity User E-Sign Co-Sign Detail Recorded Client Recorded Date Recorded By Document 05/19/18 15:58 [id number] 05/19/18 16:07 05/19/18 15:58 Wound Center Nurse 1 [Ulcer Assessment] #1 RIGHT SHOULDER SURGICAL DEHISSENCE -Combined with other wound No -Current Size (cm) - Length 0.5 -Current Size (cm) - Width 0.2 -Current Size (cm) - Depth 2.2 -Total Square Cm 0.10 -Date of Last Picture (Recall this 05/19/18 field) -Photo Taken Yes -Epithelialization None Present -Tunneling No -Undermining/Tunneling No -Circular Undermining No -Classification - Thickness Full Thickness without Exposed Support Structure -Exudate Amt Small (1-33%) -Exudate Type Serosanguineous -Wound Margin Distinct, Outline Attached -Granulation Amt None Present (0 %) -Granulation Quality N/A -Slough/Fibrin Yes -Necrosis Amt Large (67-100%) -Necrotic Tissue Type Adherent Slough -Structure Exposed Fascia Fat Layer Exposed -Texture ([place]-wound Skin Appearance) Assessed Scarring -Moisture ([place]-wound Skin Appearance No Abnormality ) Assessed -Color ([place]-wound Skin Appearance) Assessed Erythema -Temperature ([place]-wound Skin No Abnormality Appearance) (Pt Warm) -Tenderness on Palpation ([place]-wound No Skin Appearance) -Ulcer Cleansing Rinsed/ Irrigated with Saline -Foul Odor after Cleansing No -Anesthetic Used 5% Lidocaine Gel [Edema Assessment] -Lower Limb Edema Present No - Nurse 2 - General Ulcer CM Notes Start: 05/19/18 15:58 Freq: Status: Active Protocol: Activity Type Activity Date Activity User E-Sign Co-Sign Detail Recorded Client Recorded Date Recorded By Document 05/19/18 16:47 [id number] 05/19/18 16:48 05/19/18 16:47 Wound Center Nurse 2 [Procedure/Treatment] #1 RIGHT SHOULDER SURGICAL DEHISSENCE -Correct Patient No -Correct Side, Site, Position No -Correct Procedure No -Procedure Performed No [See Physician Procedure note for Specifics] Pain Scale: 0-10 Numeric [Pain] -Is Patient Pain Free? Yes Musculoskeletal: No Muscle Wasting Neurological: Neuro grossly intact Psych/Mental Status: Normal Affect, Appropriate Debridement Note Post-Debridement Measurements/Treatment - Nurse 2 - General Ulcer CM Notes Start: 05/19/18 15:58 Freq: Status: Active Protocol: Activity Type Activity Date Activity User E-Sign Co-Sign Detail Recorded Client Recorded Date Recorded By Document 05/19/18 16:47 [id number] 05/19/18 16:48 05/19/18 16:47 Wound Center Nurse 2 #1 RIGHT SHOULDER SURGICAL DEHISSENCE -Correct Patient No -Correct Side, Site, Position No -Correct Procedure No -Procedure Performed No Pain Scale: 0-10 Numeric Is Patient Pain Free? Yes No debridement was completed today Assessment/Plan Active Problems (Last Updated 03/30/18 @ 16:10 by Therese Cesar) Cutaneous abscess of right upper limb (Acute) Presence of right artificial shoulder joint (Chronic) Type 2 diabetes mellitus (Acute) History of gastric restrictive surgery (Chronic) Non-healing surgical wound (Acute) Assessment: 1. Non-healing surgical wound (Acute). 2. Cutaneous abscess of right upper limb (Acute). 3. Presence of right artificial shoulder joint (Chronic). 4. Type 2 diabetes mellitus (Acute). 5. History of gastric restrictive surgery (Chronic) Plan: Patient has a right anterior shoulder incision/wound that is draining a significant amount of clear, serous drainage. Able to probe along the entire suture line. The operative sutures are still in place. When those sutures are removed, the incision may open up because of the amount of drainage seen today. If the wound does reopen, it may need further operative debridement followed by a wound VAC. At the time of the operative debridement, if there is extension down to the bone then a partial ostectomy will be done to evaluate for osteomyelitis. If there is a plateau in the healing process, then delayed closure with skin grafting can be done. If bone or prosthesis are involved, then Orthopedic evaluation would be done to determine if the prosthesis needs to be revised. Complex soft tissue coverage with a muscle flap would be necessary. Encouraged patient to increase protein intake and to keep his blood sugar under control. Patient meets with Dr. Mix on 05/22/18 for suture removal. Code Visit Office Visits / Consults: [id number] OV [id number] Est
--- NOTE | 2018-05-19 17:25 | HP.PCM_ITS ---
(1) Non-healing surgical wound Status: Acute Current Visit: Yes Code(s): T81.89XA - Other complications of procedures, not elsewhere classified, initial encounter (2) Cutaneous abscess of right upper limb Status: Acute Current Visit: Yes Code(s): L02.413 - Cutaneous abscess of right upper limb (3) Presence of right artificial shoulder joint Status: Chronic Current Visit: Yes Code(s): Z96.611 - Presence of right artificial shoulder joint (4) Type 2 diabetes mellitus Status: Acute Current Visit: Yes Code(s): E11.9 - Type 2 diabetes mellitus without complications (5) History of gastric restrictive surgery Status: Chronic Current Visit: Yes Code(s): Z98.84 - Bariatric surgery status History of Present Illness Date of Service: 05/19/18 Chief Complaint: Non healing surgical wound on right shoulder. History of Wound: Patient had right reverse total shoulder arthroplasty by Dr. Bosch in November 2017. He developed redness around the incison at the time of surgery. He began getting swelling in this area 2 months postoperatively. He started to get drainage and went to urgent care and was placed on antibiotics. He had an abscess that was drained. X-rays of right shoulder in December and March were normal. 04/02/18 culture of pustule of right shoulder was negative. 04/06/18 Nasal MRSA swab was negative. 04/07/18 He had irrigation and debridement with placement of antibiotic spacer of his right shoulder by Dr. Kimberly perez. 04/29/18- Right shoulder irrigation debridement with sinus tract excision. Wound cultures were negative. Patient has been on doxycycline since this surgery. He continues to have drainage from this right shoulder incision/wound. He has been referred to the wound center for further evaluation of his right shoulder incision/wound. Past Medical History Past Medical History: Chronic Problems (Last Updated 03/30/18 @ 16:10 by Therese Cesar) Presence of right artificial shoulder joint (Chronic) History of gastric restrictive surgery (Chronic) Past Medical History: HTN, PVD Surgical History: - - History of Gastric Sleeve 2013 Allergies/Adverse Reactions: Allergies No Known Allergies Allergy (Verified 04/06/18 08:12) Home Medications: Ambulatory Orders Medication Instructions Recorded Biotin 10,000 mcg PO BID 10/31/16 Calcium Citrate/Vitamin D3 1 ea PO BID 10/31/16 [Calcium Citrate-Vit D3 Tablet] Cholecalciferol (Vitamin D3) 2,000 unit PO DAILY 10/31/16 [Vitamin D3] Cyanocobalamin [Vitamin B12] 500 mcg PO DAILY@0800 10/31/16 Fluticasone 0.05% [Flonase Nasal 1 spray NASAL PRN PRN 10/31/16 [place]] Levothyroxine [Synthroid] 175 mcg PO SUTUTHSA 10/31/16 Levothyroxine [Synthroid] 200 mcg PO MOWEFR 10/31/16 Lisinopril [Zestril] 20 mg PO DAILY 10/31/16 Magnesium 400 mg PO DAILY 10/31/16 [place]-3/Dha/Epa/Fish Oil [Fish Oil 1 ea PO BID 10/31/16 1,400 mg Softgel] Ranitidine [Zantac] 150 mg PO DAILY 10/31/16 Torsemide [Demadex] 5 mg PO DAILY 10/31/16 Metformin HCl [Glucophage] 500 mg PO BIDCM 11/04/17 Docusate Sodium [Colace] 100 mg PO BID PRN PRN #10 cap 11/12/17 celecoxib 200 mg capsule 200 mg PO DAILY 03/30/18 Acetaminophen [Tylenol] 1,000 mg PO Q8 tablet 04/29/18 Doxycycline 100 mg PO BID #30 capsule 04/29/18 Ensure Enlive 120 ml PO TID liquid 04/29/18 traMADol [Ultram] 50 - 100 mg PO Q6H PRN PRN #20 04/29/18 tablet Smoking Status: Former smoker Review of Systems Constitutional: Denies: Anorexia, Chills, Fever Eyes: Denies: Pain, Vision Change HEENT: Denies: Difficulty Hearing, Difficulty Swallowing, Sinus Congestion Cardiovascular: Denies: Chest Pain, Palpitations Respiratory: Denies: Cough, Shortness of Breath Gastrointestinal: Denies: Diarrhea, Nausea, Vomiting Musculoskeletal: Reports: Joint Tenderness - Right shoulder tenderness at incision site Skin: Reports: Wounds - Right anterior shoulder incision. Neurological: Denies: Balance problems, Blurred vision, Difficulty swallowing, Headaches Psychiatric: Denies: Anxiety, Depression Endocrine: Denies: Heat/ Cold Intolerance, Polydipsia, Polyuria - Physical Exam Vital Signs Temp Pulse Resp BP 99.1 F 102 H 18 149/78 H 05/19/18 15:58 05/19/18 15:58 05/19/18 15:58 05/19/18 15:58 General: Alert, Oriented x3, Cooperative HEENT: Atraumatic, PERRLA, EOMI Oral: Moist Mucosa Lungs: Clear to auscultation, Normal air movement, No rhonchi Cardiovascular: Regular rate, Regular Rhythm Extremities: Diminished Peripheral Pulses, Edema - Patient has a history of lower extremity lymphadema Skin: Ulcer/ Wound - Right anterior shoulder incision/wound with surgical sutures intact. There is a significant amount of clear serous drainage from the incision. Able to insert the stick end of a cotton applicator along the entire suture line. When pressing on incision serous drainage drains from the wound at opening at both ends of the incision/wound. Wound Measurements and Assessment WC - Nurse 1 - General Ulcer Measurement Start: 05/19/18 15:58 Freq: Status: Active Protocol: Activity Type Activity Date Activity User E-Sign Co-Sign Detail Recorded Client Recorded Date Recorded By Document 05/19/18 15:58 [id number] 05/19/18 16:07 05/19/18 15:58 Wound Center Nurse 1 [Ulcer Assessment] #1 RIGHT SHOULDER SURGICAL DEHISSENCE -Combined with other wound No -Current Size (cm) - Length 0.5 -Current Size (cm) - Width 0.2 -Current Size (cm) - Depth 2.2 -Total Square Cm 0.10 -Date of Last Picture (Recall this 05/19/18 field) -Photo Taken Yes -Epithelialization None Present -Tunneling No -Undermining/Tunneling No -Circular Undermining No -Classification - Thickness Full Thickness without Exposed Support Structure -Exudate Amt Small (1-33%) -Exudate Type Serosanguineous -Wound Margin Distinct, Outline Attached -Granulation Amt None Present (0 %) -Granulation Quality N/A -Slough/Fibrin Yes -Necrosis Amt Large (67-100%) -Necrotic Tissue Type Adherent Slough -Structure Exposed Fascia Fat Layer Exposed -Texture ([place]-wound Skin Appearance) Assessed Scarring -Moisture ([place]-wound Skin Appearance No Abnormality ) Assessed -Color ([place]-wound Skin Appearance) Assessed Erythema -Temperature ([place]-wound Skin No Abnormality Appearance) (Pt Warm) -Tenderness on Palpation ([place]-wound No Skin Appearance) -Ulcer Cleansing Rinsed/ Irrigated with Saline -Foul Odor after Cleansing No -Anesthetic Used 5% Lidocaine Gel [Edema Assessment] -Lower Limb Edema Present No - Nurse 2 - General Ulcer CM Notes Start: 05/19/18 15:58 Freq: Status: Active Protocol: Activity Type Activity Date Activity User E-Sign Co-Sign Detail Recorded Client Recorded Date Recorded By Document 05/19/18 16:47 [id number] 05/19/18 16:48 05/19/18 16:47 Wound Center Nurse 2 [Procedure/Treatment] #1 RIGHT SHOULDER SURGICAL DEHISSENCE -Correct Patient No -Correct Side, Site, Position No -Correct Procedure No -Procedure Performed No [See Physician Procedure note for Specifics] Pain Scale: 0-10 Numeric [Pain] -Is Patient Pain Free? Yes Musculoskeletal: No Muscle Wasting Neurological: Neuro grossly intact Psych/Mental Status: Normal Affect, Appropriate Debridement Note Post-Debridement Measurements/Treatment WC - Nurse 2 - General Ulcer CM Notes Start: 05/19/18 15:58 Freq: Status: Active Protocol: Activity Type Activity Date Activity User E-Sign Co-Sign Detail Recorded Client Recorded Date Recorded By Document 05/19/18 16:47 [id number] 05/19/18 16:48 05/19/18 16:47 Wound Center Nurse 2 #1 RIGHT SHOULDER SURGICAL DEHISSENCE -Correct Patient No -Correct Side, Site, Position No -Correct Procedure No -Procedure Performed No Pain Scale: 0-10 Numeric Is Patient Pain Free? Yes No debridement was completed today Assessment/Plan Active Problems (Last Updated 03/30/18 @ 16:10 by Therese Cesar) Cutaneous abscess of right upper limb (Acute) Presence of right artificial shoulder joint (Chronic) Type 2 diabetes mellitus (Acute) History of gastric restrictive surgery (Chronic) Non-healing surgical wound (Acute) Assessment: 1. Non-healing surgical wound (Acute). 2. Cutaneous abscess of right upper limb (Acute). 3. Presence of right artificial shoulder joint (Chronic). 4. Type 2 diabetes mellitus (Acute). 5. History of gastric restrictive surgery (Chronic) Plan: Patient has a right anterior shoulder incision/wound that is draining a significant amount of clear, serous drainage. Able to probe along the entire suture line. The operative sutures are still in place. When those sutures are removed, the incision may open up because of the amount of drainage seen today. If the wound does reopen, it may need further operative debridement followed by a wound VAC. At the time of the operative debridement, if there is extension down to the bone then a partial ostectomy will be done to evaluate for osteomyelitis. If there is a plateau in the healing process, then delayed closure with skin grafting can be done. If bone or prosthesis are involved, then Orthopedic evaluation would be done to determine if the prosthesis needs to be revised. Complex soft tissue coverage with a muscle flap would be necessary. Encouraged patient to increase protein intake and to keep his blood sugar under control. Patient meets with Dr. Mix on 05/22/18 for suture removal. Code Visit Office Visits / Consults: [id number] OV L4 Est
[2018-05-26 14:53] VITALS: BP 146/72; PULSE 77; RESP 16; TEMP 36.9; BMI 46.3
--- NOTE | 2018-05-27 09:28 | PN.PCM_ITS ---
(1) Non-healing surgical wound Status: Acute Current Visit: Yes Code(s): T81.89XA - Other complications of procedures, not elsewhere classified, initial encounter (2) Cutaneous abscess of right upper limb Status: Acute Current Visit: Yes Code(s): L02.413 - Cutaneous abscess of right upper limb (3) Presence of right artificial shoulder joint Status: Chronic Current Visit: Yes Code(s): Z96.611 - Presence of right artificial shoulder joint (4) Type 2 diabetes mellitus Status: Acute Current Visit: Yes Code(s): E11.9 - Type 2 diabetes mellitus without complications (5) History of gastric restrictive surgery Status: Chronic Current Visit: Yes Code(s): Z98.84 - Bariatric surgery status Type of Wound Date of Service: 05/26/18 Chief Complaint: Non healing surgical wound on right shoulder. History of Wound: Patient had right reverse total shoulder arthroplasty by Dr. Bosch in November 2017. He developed redness around the incison at the time of surgery. He began getting swelling in this area 2 months postoperatively. He started to get drainage and went to urgent care and was placed on antibiotics. He had an abscess that was drained. X-rays of right shoulder in December and March were normal. 04/02/18 culture of pustule of right shoulder was negative. 04/06/18 Nasal MRSA swab was negative. 04/07/18 He had irrigation and debridement with placement of antibiotic spacer of his right shoulder by Dr. Mix. 04/29/18- Right shoulder irrigation debridement with sinus tract excision. Wound cultures were negative. Patient has been on doxycycline since this surgery. He continues to have drainage from this right shoulder incision/wound. He has been referred to the wound center for further evaluation of his right shoulder incision/wound. Progress of Wound: Wound is now opened. Beefy red red in appearance. - Physical Exam Vital Signs Temp Pulse Resp BP 98.4 F 77 16 146/72 H 05/26/18 14:53 05/26/18 14:53 05/26/18 14:53 05/26/18 14:53 General: Alert, Oriented x3, Cooperative HEENT: Atraumatic, PERRLA Oral: Moist Mucosa Lungs: Normal air movement Cardiovascular: Regular rate Extremities: No edema, Peripheral Pulses Normal Skin: Ulcer/ Wound - Right anterior shoulder opened wound. Wound Measurements and Assessment WC - Nurse 1 - General Ulcer Measurement Start: 05/19/18 15:58 Freq: Status: Active Protocol: Activity Type Activity Date Activity User E-Sign Co-Sign Detail Recorded Client Recorded Date Recorded By Document 05/26/18 14:53 [id number] 05/26/18 14:57 05/26/18 14:53 Wound Center Nurse 1 [Ulcer Assessment] #1 RIGHT SHOULDER SURGICAL DEHISSENCE -Combined with other wound No -Current Size (cm) - Length 4.0 -Current Size (cm) - Width 0.8 -Current Size (cm) - Depth 3.2 -Total Square Cm 3.20 -Photo Taken No -Epithelialization None Present -Tunneling No -Undermining/Tunneling No -Circular Undermining No -Classification - Thickness Full Thickness without Exposed Support Structure -Exudate Amt Large (67-100%) -Exudate Type Serosanguineous -Wound Margin Flat & Intact -Granulation Amt Medium (34-66%) -Granulation Quality Pale [place] -Slough/Fibrin Yes -Necrosis Amt Medium (34-66%) -Necrotic Tissue Type Adherent Slough -Structure Exposed Fascia Fat Layer Exposed -Texture ([place]-wound Skin Appearance) Assessed Scarring -Moisture ([place]-wound Skin Appearance Assessed ) Weeping -Color ([place]-wound Skin Appearance) No Abnormality Assessed -Temperature ([place]-wound Skin No Abnormality Appearance) (Pt Warm) -Ulcer Cleansing Wound Cleanser -Foul Odor after Cleansing No -Anesthetic Used 5% Lidocaine Gel - Nurse 2 - General Ulcer CM Notes Start: 05/19/18 15:58 Freq: Status: Active Protocol: Activity Type Activity Date Activity User E-Sign Co-Sign Detail Recorded Client Recorded Date Recorded By Document 05/26/18 15:15 [id number] 05/26/18 15:17 05/26/18 15:15 Wound Center Nurse 2 [Procedure/Treatment] -Time 15:15 -Correct Patient Yes -Correct Side, Site, Position Yes -Correct Procedure Yes -Procedure Performed Yes -Type of Procedure Debridement -Clinical Debridement Subcutaneous -Post Debridement Size (cm) - Length 4.4 -Post Debridement Size (cm) - Width 1 -Post Debridement Size (cm) - Depth 2.4 -Total Square Cm 4.4 -Wound/Ulcer Outcome Not Healed -Ulcer Cleansing Rinsed/ Irrigated with Saline -Foul Odor after Cleansing No -Bioengineered Tissue No -Bleeding Controlled with Pressure -Treatment Response Procedure Tolerated Well [See Physician Procedure note for Specifics] Pain Scale: 0-10 Numeric [Pain] -Is Patient Pain Free? Yes Musculoskeletal: No Tenderness to Palpation of Joints or Extremities Neurological: Neuro grossly intact Psych/Mental Status: Normal Affect, Appropriate Debridement Note Post-Debridement Measurements/Treatment WC - Nurse 2 - General Ulcer CM Notes Start: 05/19/18 15:58 Freq: Status: Active Protocol: Activity Type Activity Date Activity User E-Sign Co-Sign Detail Recorded Client Recorded Date Recorded By Document 05/19/18 16:47 [id number] 05/19/18 16:48 Document 05/26/18 15:15 [id number] 05/26/18 15:17 05/19/18 05/26/18 16:47 15:15 Wound Center Nurse 2 #1 RIGHT SHOULDER SURGICAL DEHISSENCE -Time 15:15 -Correct Patient No Yes -Correct Side, Site, Position No Yes -Correct Procedure No Yes -Procedure Performed No Yes -Type of Procedure Debridement -Clinical Debridement Subcutaneous -Post Debridement Size (cm) - Length 4.4 -Post Debridement Size (cm) - Width 1 -Post Debridement Size (cm) - Depth 2.4 -Total Square Cm 4.4 -Wound/Ulcer Outcome Not Healed -Ulcer Cleansing Rinsed/ Irrigated with Saline -Foul Odor after Cleansing No -Bioengineered Tissue No -Bleeding Controlled with Pressure -Treatment Response Procedure Tolerated Well Pain Scale: 0-10 Numeric Is Patient Pain Free? Yes Yes Wound debrided: Right anterior shoulder Laterality: Right Type of Debridement: Excisional debridement Anesthesia Used: 4% Lidocaine Solution Depth: Down to and including healthy tissue, in the subcutaneous layer Percentage of wound debrided: 100 Instrument Used: 3mm curette Tissue Removed: Subcutaneous tissue and slough Severity: Fat Layer Exposed Amount of bleeding with debridement: Mild Bleeding Controlled with: Pressure Patient tolerated procedure well Assessment/Plan Active Problems (Last Updated 03/30/18 @ 16:10 by Therese Cesar) Cutaneous abscess of right upper limb (Acute) Presence of right artificial shoulder joint (Chronic) Type 2 diabetes mellitus (Acute) History of gastric restrictive surgery (Chronic) Non-healing surgical wound (Acute) Assessment: 1. Non-healing surgical wound (Acute). 2. Cutaneous abscess of right upper limb (Acute). 3. Presence of right artificial shoulder joint (Chronic). 4. Type 2 diabetes mellitus (Acute). 5. History of gastric restrictive surgery (Chronic) Plan: Patient has a right anterior shoulder incision/wound that is draining a significant amount of clear, serous drainage. Patient saw Dr. Mix on 05/22/18 and he removed the sutures and opened the incision. He was told to come in to the wound center today to have a wound vac placed. Due to the size of the openend area, we obtained approval for a SNAP VAC which was applied today. Wound cultures from Surgery 3 weeks ago were negative. He will follow up at the end of the week for a nurse visit and follow up in one week with me.
[2018-05-29 11:13] VITALS: BP 158/83; PULSE 80; RESP 16; TEMP 37.2; BMI 46.3
[2018-06-02 13:52] VITALS: BP 137/68; PULSE 108; RESP 18; TEMP 36.9; BMI 46.3
--- NOTE | 2018-06-02 16:51 | PN.PCM_ITS ---
(1) Non-healing surgical wound Status: Acute Code(s): T81.89XA - Other complications of procedures, not elsewhere classified, initial encounter (2) Cutaneous abscess of right upper limb Status: Acute Code(s): L02.413 - Cutaneous abscess of right upper limb (3) Presence of right artificial shoulder joint Status: Chronic Code(s): Z96.611 - Presence of right artificial shoulder joint (4) Type 2 diabetes mellitus Status: Acute Code(s): E11.9 - Type 2 diabetes mellitus without complications (5) History of gastric restrictive surgery Status: Chronic Code(s): Z98.84 - Bariatric surgery status Type of Wound Date of Service: 06/02/18 Chief Complaint: Non healing surgical wound on right shoulder. History of Wound: Patient had right reverse total shoulder arthroplasty by Dr. Bosch in November 2017. He developed redness around the incison at the time of surgery. He began getting swelling in this area 2 months postoperatively. He started to get drainage and went to urgent care and was placed on antibiotics. He had an abscess that was drained. X-rays of right shoulder in December and March were normal. 04/02/18 culture of pustule of right shoulder was ne gative. 04/06/18 Nasal MRSA swab was negative. 04/07/18 He had irrigation and debridement with placement of antibiotic spacer of his right shoulder by Dr. Mix. 04/29/18- Right shoulder irrigation debridement with sinus tract excision. Wound cultures were negative. Patient has been on doxycycline since this surgery. 05/22/[address] Mix who opened up his incision and referred him to the wound center for management. 06/01/18 he was started on the SNAP VAC with changes twice weekly. Progress of Wound: Wound is now opened. Beefy red red in appearance. - Physical Exam Vital Signs Temp Pulse Resp BP 98.4 F 108 H 18 137/68 H 06/02/18 13:52 06/02/18 13:52 06/02/18 13:52 06/02/18 13:52 General: Alert, Oriented x3, Cooperative HEENT: Atraumatic, PERRLA Oral: Moist Mucosa Cardiovascular: Regular rate Extremities: No edema Skin: Ulcer/ Wound - Right anterior shoulder Wound Measurements and Assessment WC - Nurse 1 - General Ulcer Measurement Start: 05/19/18 15:58 Freq: Status: Active Protocol: Activity Type Activity Date Activity User E-Sign Co-Sign Detail Recorded Client Recorded Date Recorded By Document 06/02/18 13:52 [id number] 06/02/18 13:58 06/02/18 13:52 Wound Center Nurse 1 [Ulcer Assessment] #1 RIGHT SHOULDER SURGICAL DEHISSENCE -Current Size (cm) - Length 3.4 -Current Size (cm) - Width 0.5 -Current Size (cm) - Depth 1 -Total Square Cm 1.70 -Photo Taken No -Exudate Amt Small (1-33%) -Exudate Type Serosanguineous -Wound Margin Thickened -Granulation Amt Large (67-100%) -Granulation Quality Red -Necrosis Amt Small (1-33%) -Necrotic Tissue Type Adherent Slough -Structure Exposed N/A -Texture ([place]-wound Skin Appearance) Scarring -Moisture ([place]-wound Skin Appearance No Abnormality ) -Color ([place]-wound Skin Appearance) Rubor -Temperature ([place]-wound Skin No Abnormality Appearance) (Pt Warm) -Tenderness on Palpation ([place]-wound No Skin Appearance) -Ulcer Cleansing Wound Cleanser -Foul Odor after Cleansing No -Anesthetic Used 4% Lidocaine Solution WC - Nurse 2 - General Ulcer CM Notes Start: 05/19/18 15:58 Freq: Status: Active Protocol: Activity Type Activity Date Activity User E-Sign Co-Sign Detail Recorded Client Recorded Date Recorded By Document 06/02/18 14:39 [id number] 06/02/18 14:42 06/02/18 14:39 Wound Center Nurse 2 [Procedure/Treatment] -Time 14:39 -Correct Patient Yes -Correct Side, Site, Position Yes -Correct Procedure Yes -Procedure Performed Yes -Type of Procedure Debridement -Clinical Debridement Subcutaneous -Post Debridement Size (cm) - Length 3.6 -Post Debridement Size (cm) - Width 0.7 -Post Debridement Size (cm) - Depth 1.0 -Total Square Cm 2.52 -Wound/Ulcer Outcome Not Healed -Ulcer Cleansing Not Cleansed -Foul Odor after Cleansing No -Bioengineered Tissue No -Bleeding Controlled with NA -Treatment Response Procedure Tolerated Well [See Physician Procedure note for Specifics] Musculoskeletal: No Tenderness to Palpation of Joints or Extremities Neurological: Neuro grossly intact Debridement Note Post-Debridement Measurements/Treatment WC - Nurse 2 - General Ulcer CM Notes Start: 05/19/18 15:58 Freq: Status: Active Protocol: Activity Type Activity Date Activity User E-Sign Co-Sign Detail Recorded Client Recorded Date Recorded By Document 05/19/18 16:47 [id number] 05/19/18 16:48 Document 05/26/18 15:15 [id number] 05/26/18 15:17 Document 06/02/18 14:39 [id number] 06/02/18 14:42 05/19/18 05/26/18 06/02/18 16:47 15:15 14:39 Wound Center Nurse 2 #1 RIGHT SHOULDER SURGICAL DEHISSENCE -Time 15:15 14:39 -Correct Patient No Yes Yes -Correct Side, Site, Position No Yes Yes -Correct Procedure No Yes Yes -Procedure Performed No Yes Yes -Type of Procedure Debridement Debridement -Clinical Debridement Subcutaneous Subcutaneous -Post Debridement Size (cm) - Length 4.4 3.6 -Post Debridement Size (cm) - Width 1 0.7 -Post Debridement Size (cm) - Depth 2.4 1.0 -Total Square Cm 4.4 2.52 -Wound/Ulcer Outcome Not Healed Not Healed -Ulcer Cleansing Rinsed/ Not Cleansed Irrigated with Saline -Foul Odor after Cleansing No No -Bioengineered Tissue No No -Bleeding Controlled with Pressure NA -Treatment Response Procedure Procedure Tolerated Well Tolerated Well Pain Scale: 0-10 Numeric Is Patient Pain Free? Yes Yes Wound debrided: Right anterior shoulder Laterality: Right Type of Debridement: Excisional debridement Anesthesia Used: 4% Lidocaine Solution Depth: Down to and including healthy tissue, in the subcutaneous layer Percentage of wound debrided: 100 Instrument Used: 3mm curette Tissue Removed: Subcutaneous tissue and slough Severity: Fat Layer Exposed Amount of bleeding with debridement: Mild Bleeding Controlled with: Pressure Patient tolerated procedure well Assessment/Plan Assessment: 1. Non-healing surgical wound (Acute). 2. Cutaneous abscess of right upper limb (Acute). 3. Presence of right artificial shoulder joint (Chronic). 4. Type 2 diabetes mellitus (Acute). 5. History of gastric restrictive surgery (Chronic) Plan: Patient has a right anterior shoulder incision/wound that is draining a significant amount of clear, serous drainage. Patient saw Dr. Mix on 05/22/18 and he removed the sutures and opened the incision. He was told to come in to the wound center today to have a wound vac placed. Continue SNAP vac. With the holiday, patient may have to remove vac after several days. Instructed to do wet to dry dressings if the vac comes off until he can be seen in the wound center next week. Wound cultures from Surgery 3 weeks ago were negative. He will follow up in one week. Code Visit [id number]: [id number] Nicole subq tissue 20 sq cm/<
[2018-06-09 14:41] VITALS: BP 149/83; PULSE 85; RESP 16; TEMP 36.4; BMI 46.3
--- NOTE | 2018-06-12 09:40 | PCM.WC.PN ---
(1) Non-healing surgical wound Status: Acute Current Visit: Yes Code(s): T81.89XA - Other complications of procedures, not elsewhere classified, initial encounter (2) Cutaneous abscess of right upper limb Status: Acute Current Visit: No Code(s): L02.413 - Cutaneous abscess of right upper limb (3) Presence of right artificial shoulder joint Status: Chronic Current Visit: No Code(s): Z96.611 - Presence of right artificial shoulder joint (4) Type 2 diabetes mellitus Status: Chronic Current Visit: Yes Code(s): E11.9 - Type 2 diabetes mellitus without complications (5) History of gastric restrictive surgery Status: Chronic Current Visit: No Code(s): Z98.84 - Bariatric surgery status Type of Wound Date of Service: 06/09/18 Chief Complaint: Non healing surgical wound on right shoulder. History of Wound: Patient had right reverse total shoulder arthroplasty by Dr. Bosch in November 2017. He developed redness around the incison at the time of surgery. He began getting swelling in this area 2 months postoperatively. He started to get drainage and went to urgent care and was placed on antibiotics. He had an abscess that was drained. X-rays of right shoulder in December and March were normal. 04/02/18 culture of pustule of right shoulder was negative. 04/06/18 Nasal MRSA swab was negative. 04/07/18 He had irrigation and debridement with placement of antibiotic spacer of his right shoulder by Dr. Mix. 04/29/18- Right shoulder irrigation debridement with sinus tract excision. Wound cultures were negative. Patient has been on doxycycline since this surgery. 05/22/[address] Mix who opened up his incision and referred him to the wound center for management. 06/01/18 he was started on the SNAP VAC with changes twice weekly. Progress of Wound: Much improved. - Physical Exam Vital Signs Temp Pulse Resp BP 97.5 F L 85 16 149/83 H 06/09/18 14:41 06/09/18 14:41 06/09/18 14:41 06/09/18 14:41 General: Alert, Oriented x3, Cooperative HEENT: Atraumatic Oral: Moist Mucosa Lungs: Normal air movement Cardiovascular: Regular rate Extremities: No edema, Capillary Refill Less than 3 Seconds Skin: Ulcer/ Wound - Right anterior shoulder open area that is decreasing in size Wound Measurements and Assessment WC - Nurse 1 - General Ulcer Measurement Start: 05/19/18 15:58 Freq: Status: Active Protocol: Activity Type Activity Date Activity User E-Sign Co-Sign Detail Recorded Client Recorded Date Recorded By Document 06/09/18 14:41 [id number] 06/09/18 14:42 06/09/18 14:41 Wound Center Nurse 1 [Ulcer Assessment] #1 RIGHT SHOULDER SURGICAL DEHISSENCE -Combined with other wound No -Current Size (cm) - Length 2.7 -Current Size (cm) - Width 0.4 -Current Size (cm) - Depth 0.7 -Total Square Cm 1.08 -Photo Taken No -Epithelialization Medium 34-66% -Tunneling No -Undermining/Tunneling No -Circular Undermining No -Exudate Amt Small (1-33%) -Exudate Type Serosanguineous -Wound Margin Flat & Intact -Granulation Amt Large (67-100%) -Granulation Quality Red -Slough/Fibrin Yes -Necrosis Amt Small (1-33%) -Necrotic Tissue Type Adherent Slough -Structure Exposed N/A -Texture ([place]-wound Skin Appearance) Assessed -Moisture ([place]-wound Skin Appearance Assessed ) Dry/Scaly -Color ([place]-wound Skin Appearance) Assessed -Temperature ([place]-wound Skin No Abnormality Appearance) (Pt Warm) -Tenderness on Palpation ([place]-wound No Skin Appearance) -Ulcer Cleansing Wound Cleanser -Anesthetic Used 4% Lidocaine Solution 5% Lidocaine Gel [Edema Assessment] -Lower Limb Edema Present NA - Nurse 2 - General Ulcer CM Notes Start: 05/19/18 15:58 Freq: Status: Active Protocol: Activity Type Activity Date Activity User E-Sign Co-Sign Detail Recorded Client Recorded Date Recorded By Document 06/09/18 15:32 [id number] 06/09/18 15:33 06/09/18 15:32 Wound Center Nurse 2 [Procedure/Treatment] #1 RIGHT SHOULDER SURGICAL DEHISSENCE -Time 15:32 -Correct Patient Yes -Correct Side, Site, Position Yes -Correct Procedure Yes -Procedure Performed Yes -Type of Procedure Debridement -Clinical Debridement Subcutaneous -Post Debridement Size (cm) - Length 3.0 -Post Debridement Size (cm) - Width 0.5 -Post Debridement Size (cm) - Depth 0.8 -Total Square Cm 1.50 -Wound/Ulcer Outcome Not Healed -Ulcer Cleansing Rinsed/ Irrigated with Saline -Foul Odor after Cleansing No -Bioengineered Tissue No -Bleeding Controlled with Pressure -Treatment Response Procedure Tolerated Well [See Physician Procedure note for Specifics] Pain Scale: 0-10 Numeric [Pain] -Is Patient Pain Free? Yes Musculoskeletal: No Tenderness to Palpation of Joints or Extremities, No Muscle Wasting Neurological: Neuro grossly intact Psych/Mental Status: Normal Affect, Appropriate Debridement Note Post-Debridement Measurements/Treatment WC - Nurse 2 - General Ulcer CM Notes Start: 05/19/18 15:58 Freq: Status: Active Protocol: Activity Type Activity Date Activity User E-Sign Co-Sign Detail Recorded Client Recorded Date Recorded By Document 05/19/18 16:47 [id number] 05/19/18 16:48 Document 05/26/18 15:15 [id number] 05/26/18 15:17 Document 06/02/18 14:39 [id number] 06/02/18 14:42 Document 06/09/18 15:32 [id number] 06/09/18 15:33 05/19/18 05/26/18 06/02/18 16:47 15:15 14:39 Wound Center Nurse 2 #1 RIGHT SHOULDER SURGICAL DEHISSENCE -Time 15:15 14:39 -Correct Patient No Yes Yes -Correct Side, Site, Position No Yes Yes -Correct Procedure No Yes Yes -Procedure Performed No Yes Yes -Type of Procedure Debridement Debridement -Clinical Debridement Subcutaneous Subcutaneous -Post Debridement Size (cm) - Length 4.4 3.6 -Post Debridement Size (cm) - Width 1 0.7 -Post Debridement Size (cm) - Depth 2.4 1.0 -Total Square Cm 4.4 2.52 -Wound/Ulcer Outcome Not Healed Not Healed -Ulcer Cleansing Rinsed/ Not Cleansed Irrigated with Saline -Foul Odor after Cleansing No No -Bioengineered Tissue No No -Bleeding Controlled with Pressure NA -Treatment Response Procedure Procedure Tolerated Well Tolerated Well Pain Scale: 0-10 Numeric Is Patient Pain Free? Yes Yes 06/09/18 15:32 Wound Center Nurse 2 #1 RIGHT SHOULDER SURGICAL DEHISSENCE -Time 15:32 -Correct Patient Yes -Correct Side, Site, Position Yes -Correct Procedure Yes -Procedure Performed Yes -Type of Procedure Debridement -Clinical Debridement Subcutaneous -Post Debridement Size (cm) - Length 3.0 -Post Debridement Size (cm) - Width 0.5 -Post Debridement Size (cm) - Depth 0.8 -Total Square Cm 1.50 -Wound/Ulcer Outcome Not Healed -Ulcer Cleansing Rinsed/ Irrigated with Saline -Foul Odor after Cleansing No -Bioengineered Tissue No -Bleeding Controlled with Pressure -Treatment Response Procedure Tolerated Well Pain Scale: 0-10 Numeric Is Patient Pain Free? Yes Wound debrided: Right anterior shoulder Laterality: Right Type of Debridement: Excisional debridement Anesthesia Used: 4% Lidocaine Solution Depth: Down to and including healthy tissue, in the subcutaneous layer Percentage of wound debrided: 100 Instrument Used: 3mm curette Tissue Removed: Subcutaneous tissue and slough Severity: Limited To Skin Breakdown Amount of bleeding with debridement: Mild Bleeding Controlled with: Pressure Patient tolerated procedure well Assessment/Plan Active Problems (Last Updated 03/30/18 @ 16:10 by Therese Cesar) Type 2 diabetes mellitus (Chronic) Non-healing surgical wound (Acute) Assessment: 1. Non-healing surgical wound (Acute). 2. Cutaneous abscess of right upper limb (Acute). 3. Presence of right artificial shoulder joint (Chronic). 4. Type 2 diabetes mellitus (Acute). 5. History of gastric restrictive surgery (Chronic) Plan: Patient has a right anterior shoulder incision/wound that is draining a significant amount of clear, serous drainage. Patient saw Dr. Mix on 05/22/18 and he removed the sutures and opened the incision. He was told to come in to the wound center to have a wound vac placed. Continue SNAP vac. Follow up at the end of the week to have it changed. Wound cultures from Surgery 3 weeks ago were negative. He will follow up in one week. Code Visit 111xxx-113xx: [id number] Nicole subq tissue 20 sq cm/<
--- NOTE | 2018-06-12 09:45 | PN.PCM_ITS ---
(1) Non-healing surgical wound Status: Acute Current Visit: Yes Code(s): T81.89XA - Other complications of procedures, not elsewhere classified, initial encounter (2) Cutaneous abscess of right upper limb Status: Acute Current Visit: No Code(s): L02.413 - Cutaneous abscess of right upper limb (3) Presence of right artificial shoulder joint Status: Chronic Current Visit: No Code(s): Z96.611 - Presence of right artificial shoulder joint (4) Type 2 diabetes mellitus Status: Chronic Current Visit: Yes Code(s): E11.9 - Type 2 diabetes mellitus without complications (5) History of gastric restrictive surgery Status: Chronic Current Visit: No Code(s): Z98.84 - Bariatric surgery status Type of Wound Date of Service: 06/09/18 Chief Complaint: Non healing surgical wound on right shoulder. History of Wound: Patient had right reverse total shoulder arthroplasty by Dr. Bosch in November 2017. He developed redness around the incison at the time of surgery. He began getting swelling in this area 2 months postoperatively. He started to get drainage and went to urgent care and was placed on antibiotics. He had an abscess that was drained. X-rays of right shoulder in December and March were normal. 04/02/18 culture of pustule of right shoulder was negative. 04/06/18 Nasal MRSA swab was negative. 04/07/18 He had irrigation and debridement with placement of antibiotic spacer of his right shoulder by Dr. Mix. 04/29/18- Right shoulder irrigation debridement with sinus tract excision. Wound cultures were negative. Patient has been on doxycycline since this surgery. 05/22/[address] Mix who opened up his incision and referred him to the wound center for management. 06/01/18 he was started on the SNAP VAC with changes twice weekly. Progress of Wound: Much improved. - Physical Exam Vital Signs Temp Pulse Resp BP 97.5 F L 85 16 149/83 H 06/09/18 14:41 06/09/18 14:41 06/09/18 14:41 06/09/18 14:41 General: Alert, Oriented x3, Cooperative HEENT: Atraumatic Oral: Moist Mucosa Lungs: Normal air movement Cardiovascular: Regular rate Extremities: No edema, Capillary Refill Less than 3 Seconds Skin: Ulcer/ Wound - Right anterior shoulder open area that is decreasing in size Wound Measurements and Assessment WC - Nurse 1 - General Ulcer Measurement Start: 05/19/18 15:58 Freq: Status: Active Protocol: Activity Type Activity Date Activity User E-Sign Co-Sign Detail Recorded Client Recorded Date Recorded By Document 06/09/18 14:41 [id number] 06/09/18 14:42 06/09/18 14:41 Wound Center Nurse 1 [Ulcer Assessment] #1 RIGHT SHOULDER SURGICAL DEHISSENCE -Combined with other wound No -Current Size (cm) - Length 2.7 -Current Size (cm) - Width 0.4 -Current Size (cm) - Depth 0.7 -Total Square Cm 1.08 -Photo Taken No -Epithelialization Medium 34-66% -Tunneling No -Undermining/Tunneling No -Circular Undermining No -Exudate Amt Small (1-33%) -Exudate Type Serosanguineous -Wound Margin Flat & Intact -Granulation Amt Large (67-100%) -Granulation Quality Red -Slough/Fibrin Yes -Necrosis Amt Small (1-33%) -Necrotic Tissue Type Adherent Slough -Structure Exposed N/A -Texture ([place]-wound Skin Appearance) Assessed -Moisture ([place]-wound Skin Appearance Assessed ) Dry/Scaly -Color ([place]-wound Skin Appearance) Assessed -Temperature ([place]-wound Skin No Abnormality Appearance) (Pt Warm) -Tenderness on Palpation ([place]-wound No Skin Appearance) -Ulcer Cleansing Wound Cleanser -Anesthetic Used 4% Lidocaine Solution 5% Lidocaine Gel [Edema Assessment] -Lower Limb Edema Present NA - Nurse 2 - General Ulcer CM Notes Start: 05/19/18 15:58 Freq: Status: Active Protocol: Activity Type Activity Date Activity User E-Sign Co-Sign Detail Recorded Client Recorded Date Recorded By Document 06/09/18 15:32 [id number] 06/09/18 15:33 06/09/18 15:32 Wound Center Nurse 2 [Procedure/Treatment] #1 RIGHT SHOULDER SURGICAL DEHISSENCE -Time 15:32 -Correct Patient Yes -Correct Side, Site, Position Yes -Correct Procedure Yes -Procedure Performed Yes -Type of Procedure Debridement -Clinical Debridement Subcutaneous -Post Debridement Size (cm) - Length 3.0 -Post Debridement Size (cm) - Width 0.5 -Post Debridement Size (cm) - Depth 0.8 -Total Square Cm 1.50 -Wound/Ulcer Outcome Not Healed -Ulcer Cleansing Rinsed/ Irrigated with Saline -Foul Odor after Cleansing No -Bioengineered Tissue No -Bleeding Controlled with Pressure -Treatment Response Procedure Tolerated Well [See Physician Procedure note for Specifics] Pain Scale: 0-10 Numeric [Pain] -Is Patient Pain Free? Yes Musculoskeletal: No Tenderness to Palpation of Joints or Extremities, No Muscle Wasting Neurological: Neuro grossly intact Psych/Mental Status: Normal Affect, Appropriate Debridement Note Post-Debridement Measurements/Treatment WC - Nurse 2 - General Ulcer CM Notes Start: 05/19/18 15:58 Freq: Status: Active Protocol: Activity Type Activity Date Activity User E-Sign Co-Sign Detail Recorded Client Recorded Date Recorded By Document 05/19/18 16:47 [id number] 05/19/18 16:48 Document 05/26/18 15:15 [id number] 05/26/18 15:17 Document 06/02/18 14:39 [id number] 06/02/18 14:42 Document 06/09/18 15:32 [id number] 06/09/18 15:33 05/19/18 05/26/18 06/02/18 16:47 15:15 14:39 Wound Center Nurse 2 #1 RIGHT SHOULDER SURGICAL DEHISSENCE -Time 15:15 14:39 -Correct Patient No Yes Yes -Correct Side, Site, Position No Yes Yes -Correct Procedure No Yes Yes -Procedure Performed No Yes Yes -Type of Procedure Debridement Debridement -Clinical Debridement Subcutaneous Subcutaneous -Post Debridement Size (cm) - Length 4.4 3.6 -Post Debridement Size (cm) - Width 1 0.7 -Post Debridement Size (cm) - Depth 2.4 1.0 -Total Square Cm 4.4 2.52 -Wound/Ulcer Outcome Not Healed Not Healed -Ulcer Cleansing Rinsed/ Not Cleansed Irrigated with Saline -Foul Odor after Cleansing No No -Bioengineered Tissue No No -Bleeding Controlled with Pressure NA -Treatment Response Procedure Procedure Tolerated Well Tolerated Well Pain Scale: 0-10 Numeric Is Patient Pain Free? Yes Yes 06/09/18 15:32 Wound Center Nurse 2 #1 RIGHT SHOULDER SURGICAL DEHISSENCE -Time 15:32 -Correct Patient Yes -Correct Side, Site, Position Yes -Correct Procedure Yes -Procedure Performed Yes -Type of Procedure Debridement -Clinical Debridement Subcutaneous -Post Debridement Size (cm) - Length 3.0 -Post Debridement Size (cm) - Width 0.5 -Post Debridement Size (cm) - Depth 0.8 -Total Square Cm 1.50 -Wound/Ulcer Outcome Not Healed -Ulcer Cleansing Rinsed/ Irrigated with Saline -Foul Odor after Cleansing No -Bioengineered Tissue No -Bleeding Controlled with Pressure -Treatment Response Procedure Tolerated Well Pain Scale: 0-10 Numeric Is Patient Pain Free? Yes Wound debrided: Right anterior shoulder Laterality: Right Type of Debridement: Excisional debridement Anesthesia Used: 4% Lidocaine Solution Depth: Down to and including healthy tissue, in the subcutaneous layer Percentage of wound debrided: 100 Instrument Used: 3mm curette Tissue Removed: Subcutaneous tissue and slough Severity: Limited To Skin Breakdown Amount of bleeding with debridement: Mild Bleeding Controlled with: Pressure Patient tolerated procedure well Assessment/Plan Active Problems (Last Updated 03/30/18 @ 16:10 by Therese Cesar) Type 2 diabetes mellitus (Chronic) Non-healing surgical wound (Acute) Assessment: 1. Non-healing surgical wound (Acute). 2. Cutaneous abscess of right upper limb (Acute). 3. Presence of right artificial shoulder joint (Chronic). 4. Type 2 diabetes mellitus (Acute). 5. History of gastric restrictive surgery (Chronic) Plan: Patient has a right anterior shoulder incision/wound that is draining a significant amount of clear, serous drainage. Patient saw Dr. Mix on 05/22/18 and he removed the sutures and opened the incision. He was told to come in to the wound center to have a wound vac placed. Continue SNAP vac. Follow up at the end of the week to have it changed. Wound cultures from Surgery 3 weeks ago were negative. He will follow up in one week. Code Visit 111xxx-113xx: [id number] Nicole subq tissue 20 sq cm/<
[2018-06-12 11:40] VITALS: BP 145/68; PULSE 103; RESP 16; TEMP 37; BMI 46.3
== END 2018-06-12 23:59 ==
LOC: WC 11:30
PROVIDERS: Family Provider Family Medicine; PCP Family Medicine; Visit Provider Nurse Practitioner Family
DX: T81.49XA Infection following a procedure, other surgical site, initial encounter (principal); B99.8 Other infectious disease; E11.9 Type 2 diabetes mellitus without complications; L02.413 Cutaneous abscess of right upper limb; Z96.611 Presence of right artificial shoulder joint; Z98.84 Bariatric surgery status; I10 Essential (primary) hypertension; I73.9 Peripheral vascular disease, unspecified; Z87.891 Personal history of nicotine dependence; Z79.899 Other long term (current) drug therapy; Z79.84 Long term (current) use of oral hypoglycemic drugs; T81.31XA Disruption of external operation (surgical) wound, not elsewhere classified, initial encounter
CPT/HCPCS: 11042; 97607; 99212; 99213; G0463

== ENCOUNTER 2018-06-23 13:30 | Outpatient (RCR) | payer MEDICAID, SELFPAY ==
[2018-06-13 01:56] VITALS: BP 145/68; PULSE 103; RESP 16; TEMP 37
[2018-06-16 13:14] VITALS: BP 137/78; PULSE 104; RESP 18; TEMP 37; BMI 46.3
--- NOTE | 2018-06-16 16:26 | PCM.WC.PN ---
(1) Non-healing surgical wound Status: Acute Current Visit: Yes Code(s): T81.89XA - Other complications of procedures, not elsewhere classified, initial encounter (2) Cutaneous abscess of right upper limb Status: Acute Current Visit: No Code(s): L02.413 - Cutaneous abscess of right upper limb (3) Presence of right artificial shoulder joint Status: Chronic Current Visit: Yes Code(s): Z96.611 - Presence of right artificial shoulder joint (4) Type 2 diabetes mellitus Status: Chronic Current Visit: Yes Code(s): E11.9 - Type 2 diabetes mellitus without complications (5) History of gastric restrictive surgery Status: Chronic Current Visit: Yes Code(s): Z98.84 - Bariatric surgery status Type of Wound Date of Service: 06/16/18 Chief Complaint: Non healing surgical wound on right shoulder. History of Wound: Patient had right reverse total shoulder arthroplasty by Dr. Bosch in November 2017. He developed redness around the incison at the time of surgery. He began getting swelling in this area 2 months postoperatively. He started to get drainage and went to urgent care and was placed on antibiotics. He had an abscess that was drained. X-rays of right shoulder in December and March were normal. 04/02/18 culture of pustule of right shoulder was negative. 04/06/18 Nasal MRSA swab was negative. 04/07/18 He had irrigation and debridement with placement of antibiotic spacer of his right shoulder by Dr. Mix. 04/29/18- Right shoulder irrigation debridement with sinus tract excision. Wound cultures were negative. Patient has been on doxycycline since this surgery. 05/22/[address] Mix who opened up his incision and referred him to the wound center for management. 06/01/18 he was started on the SNAP VAC with changes twice weekly. Progress of Wound: Improved. - Physical Exam Vital Signs Temp Pulse Resp BP 98.6 F 104 H 18 137/78 H 06/16/18 13:14 06/16/18 13:14 06/16/18 13:14 06/16/18 13:14 General: Alert, Oriented x3, Cooperative HEENT: Atraumatic Oral: Moist Mucosa Lungs: Normal air movement Cardiovascular: Regular rate Extremities: No edema, Capillary Refill Less than 3 Seconds Skin: Ulcer/ Wound - Right anterior wound healing well with good granulation tissue. Wound Measurements and Assessment WC - Nurse 1 - General Ulcer Measurement Start: 06/16/18 13:13 Freq: Status: Active Protocol: Activity Type Activity Date Activity User E-Sign Co-Sign Detail Recorded Client Recorded Date Recorded By Document 06/16/18 13:14 [id number] 06/16/18 13:15 06/16/18 13:14 Wound Center Nurse 1 [Ulcer Assessment] #1 RIGHT SHOULDER SURGICAL DEHISSENCE -Combined with other wound No -Current Size (cm) - Length 2.5 -Current Size (cm) - Width 0.2 -Current Size (cm) - Depth 0.2 -Total Square Cm 0.50 -Photo Taken No -Epithelialization Medium 34-66% -Tunneling No -Undermining/Tunneling No -Circular Undermining No -Granulation Amt Large (67-100%) -Granulation Quality Red -Slough/Fibrin Yes -Necrosis Amt None Present (0 %) -Necrotic Tissue Type Adherent Slough -Structure Exposed None/Limited to Skin Breakdown -Texture ([place]-wound Skin Appearance) No Abnormality Assessed -Moisture ([place]-wound Skin Appearance No Abnormality ) Assessed -Color ([place]-wound Skin Appearance) No Abnormality Assessed -Temperature ([place]-wound Skin No Abnormality Appearance) (Pt Warm) -Tenderness on Palpation ([place]-wound Yes Skin Appearance) -Ulcer Cleansing soap -Foul Odor after Cleansing No -Anesthetic Used 4% Lidocaine Solution [Edema Assessment] -Lower Limb Edema Present NA - Nurse 2 - General Ulcer CM Notes Start: 06/16/18 13:13 Freq: Status: Active Protocol: Activity Type Activity Date Activity User E-Sign Co-Sign Detail Recorded Client Recorded Date Recorded By Document 06/16/18 13:25 [id number] 06/16/18 13:26 06/16/18 13:25 Wound Center Nurse 2 [Procedure/Treatment] #1 RIGHT SHOULDER SURGICAL DEHISSENCE -Time 13:25 -Correct Patient Yes -Correct Side, Site, Position Yes -Correct Procedure Yes -Procedure Performed Yes -Type of Procedure Debridement -Clinical Debridement Subcutaneous -Post Debridement Size (cm) - Length 2.4 -Post Debridement Size (cm) - Width 0.5 -Post Debridement Size (cm) - Depth 0.5 -Total Square Cm 1.20 -Wound/Ulcer Outcome Not Healed -Ulcer Cleansing Rinsed/ Irrigated with Saline -Foul Odor after Cleansing No -Bioengineered Tissue No -Bleeding Controlled with Pressure -Offloading No [See Physician Procedure note for Specifics] Pain Scale: 0-10 Numeric [Pain] -Is Patient Pain Free? Yes Musculoskeletal: No Tenderness to Palpation of Joints or Extremities Neurological: Neuro grossly intact Psych/Mental Status: Normal Affect, Appropriate Debridement Note Post-Debridement Measurements/Treatment WC - Nurse 2 - General Ulcer CM Notes Start: 06/16/18 13:13 Freq: Status: Active Protocol: Activity Type Activity Date Activity User E-Sign Co-Sign Detail Recorded Client Recorded Date Recorded By Document 06/16/18 13:25 [id number] 06/16/18 13:26 CLIVE 06/16/18 13:25 Wound Center Nurse 2 #1 RIGHT SHOULDER SURGICAL DEHISSENCE -Time 13:25 -Correct Patient Yes -Correct Side, Site, Position Yes -Correct Procedure Yes -Procedure Performed Yes -Type of Procedure Debridement -Clinical Debridement Subcutaneous -Post Debridement Size (cm) - Length 2.4 -Post Debridement Size (cm) - Width 0.5 -Post Debridement Size (cm) - Depth 0.5 -Total Square Cm 1.20 -Wound/Ulcer Outcome Not Healed -Ulcer Cleansing Rinsed/ Irrigated with Saline -Foul Odor after Cleansing No -Bioengineered Tissue No -Bleeding Controlled with Pressure -Offloading No Pain Scale: 0-10 Numeric Is Patient Pain Free? Yes Wound debrided: Right anterior shoulder Laterality: Right Type of Debridement: Excisional debridement Anesthesia Used: 4% Lidocaine Solution Depth: Down to and including healthy tissue, in the subcutaneous layer Percentage of wound debrided: 100 Instrument Used: 3mm curette Tissue Removed: Subcutaneous tissue and slough Severity: Fat Layer Exposed Amount of bleeding with debridement: Mild Bleeding Controlled with: Pressure Patient tolerated procedure well Assessment/Plan Active Problems (Last Updated 03/30/18 @ 16:10 by Therese Cesar) Presence of right artificial shoulder joint (Chronic) Type 2 diabetes mellitus (Chronic) History of gastric restrictive surgery (Chronic) Non-healing surgical wound (Acute) Assessment: 1. Non-healing surgical wound (Acute). 2. Cutaneous abscess of right upper limb (Acute). 3. Presence of right artificial shoulder joint (Chronic). 4. Type 2 diabetes mellitus (Acute). 5. History of gastric restrictive surgery (Chronic) Plan: Patient has a right anterior shoulder incision/wound that was draining a significant amount of clear, serous drainage. Patient saw Dr. Mix on 05/22/18 and he removed the sutures and opened the incision. He was told to come in to the wound center to have a wound vac placed. His wound is healing well with the SNAP vac. Continue SNAP vac. Follow up at the end of the week to have it changed. Wound cultures from Surgery 3 weeks ago were negative. He will follow up in one week. Code Visit 111xxx-113xx: [id number] Nicole subq tissue 20 sq cm/<
[2018-06-19 11:03] VITALS: BP 170/81; PULSE 93; RESP 18; TEMP 37.1; BMI 46.3
[2018-06-23 13:26] VITALS: BP 140/77; PULSE 117; RESP 18; TEMP 37; BMI 46.3
--- NOTE | 2018-06-23 15:53 | PCM.WC.PN ---
(1) Non-healing surgical wound Status: Acute Current Visit: Yes Code(s): T81.89XA - Other complications of procedures, not elsewhere classified, initial encounter (2) Cutaneous abscess of right upper limb Status: Acute Current Visit: No Code(s): L02.413 - Cutaneous abscess of right upper limb (3) Presence of right artificial shoulder joint Status: Chronic Current Visit: Yes Code(s): Z96.611 - Presence of right artificial shoulder joint (4) Type 2 diabetes mellitus Status: Chronic Current Visit: Yes Code(s): E11.9 - Type 2 diabetes mellitus without complications (5) History of gastric restrictive surgery Status: Chronic Current Visit: Yes Code(s): Z98.84 - Bariatric surgery status Type of Wound Date of Service: 06/23/18 Chief Complaint: Non healing surgical wound on right shoulder. History of Wound: Patient had right reverse total shoulder arthroplasty by Dr. Bosch in November 2017. He developed redness around the incison at the time of surgery. He began getting swelling in this area 2 months postoperatively. He started to get drainage and went to urgent care and was placed on antibiotics. He had an abscess that was drained. X-rays of right shoulder in December and March were normal. 04/02/18 culture of pustule of right shoulder was negative. 04/06/18 Nasal MRSA swab was negative. 04/07/18 He had irrigation and debridement with placement of antibiotic spacer of his right shoulder by Dr. Mix. 04/29/18- Right shoulder irrigation debridement with sinus tract excision. Wound cultures were negative. Patient has been on doxycycline since this surgery. 05/22/[address] Mix who opened up his incision and referred him to the wound center for management. 06/01/18 he was started on the SNAP VAC with changes twice weekly. Progress of Wound: Improved. He is healed today. - Physical Exam Vital Signs Temp Pulse Resp BP 98.6 F 117 H 18 140/77 H 06/23/18 13:26 06/23/18 13:26 06/23/18 13:26 06/23/18 13:26 General: Alert, Oriented x3, Cooperative HEENT: Atraumatic Oral: Moist Mucosa Lungs: Normal air movement Cardiovascular: Regular rate Extremities: No edema Skin: Ulcer/ Wound - Right anterior shoulder wound healed. Wound Measurements and Assessment WC - Nurse 1 - General Ulcer Measurement Start: 06/16/18 13:13 Freq: Status: Active Protocol: Activity Type Activity Date Activity User E-Sign Co-Sign Detail Recorded Client Recorded Date Recorded By Document 06/23/18 13:26 [id number] 06/23/18 13:27 06/23/18 13:26 Wound Center Nurse 1 [Ulcer Assessment] #1 RIGHT SHOULDER SURGICAL DEHISSENCE -Combined with other wound No -Current Size (cm) - Length 0.1 -Current Size (cm) - Width 0.1 -Current Size (cm) - Depth 0.1 -Total Square Cm 0.01 -Date of Last Picture (Recall this 06/23/18 field) -Photo Taken Yes -Epithelialization Large 67-100% -Temperature ([place]-wound Skin No Abnormality Appearance) (Pt Warm) -Tenderness on Palpation ([place]-wound No Skin Appearance) -Ulcer Cleansing Rinsed/ Irrigated with Saline -Foul Odor after Cleansing No -Anesthetic Used 4% Lidocaine Solution [Edema Assessment] -Lower Limb Edema Present NA WC - Nurse 2 - General Ulcer CM Notes Start: 06/16/18 13:13 Freq: Status: Active Protocol: Activity Type Activity Date Activity User E-Sign Co-Sign Detail Recorded Client Recorded Date Recorded By Document 06/23/18 13:52 [id number] 06/23/18 13:53 06/23/18 13:52 Wound Center Nurse 2 [Procedure/Treatment] #1 RIGHT SHOULDER SURGICAL DEHISSENCE -Correct Patient No -Correct Side, Site, Position No -Correct Procedure No -Procedure Performed No -Post Debridement Size (cm) - Length 0 -Post Debridement Size (cm) - Width 0 -Post Debridement Size (cm) - Depth 0 -Total Square Cm 0 -Wound/Ulcer Outcome Healed- Epithelialized [See Physician Procedure note for Specifics] Pain Scale: 0-10 Numeric [Pain] -Is Patient Pain Free? Yes Musculoskeletal: No Tenderness to Palpation of Joints or Extremities Neurological: Neuro grossly intact Psych/Mental Status: Normal Affect, Appropriate Debridement Note Post-Debridement Measurements/Treatment WC - Nurse 2 - General Ulcer CM Notes Start: 06/16/18 13:13 Freq: Status: Active Protocol: Activity Type Activity Date Activity User E-Sign Co-Sign Detail Recorded Client Recorded Date Recorded By Document 06/16/18 13:25 [id number] 06/16/18 13:26 Document 06/23/18 13:52 [id number] 06/23/18 13:53 06/16/18 06/23/18 13:25 13:52 Wound Center Nurse 2 #1 RIGHT SHOULDER SURGICAL DEHISSENCE -Time 13:25 -Correct Patient Yes No -Correct Side, Site, Position Yes No -Correct Procedure Yes No -Procedure Performed Yes No -Type of Procedure Debridement -Clinical Debridement Subcutaneous -Post Debridement Size (cm) - Length 2.4 0 -Post Debridement Size (cm) - Width 0.5 0 -Post Debridement Size (cm) - Depth 0.5 0 -Total Square Cm 1.20 0 -Wound/Ulcer Outcome Not Healed Healed- Epithelialized -Ulcer Cleansing Rinsed/ Irrigated with Saline -Foul Odor after Cleansing No -Bioengineered Tissue No -Bleeding Controlled with Pressure -Offloading No Pain Scale: 0-10 Numeric Is Patient Pain Free? Yes Yes No debridement was completed today Assessment/Plan Active Problems (Last Updated 03/30/18 @ 16:10 by Therese Cesar) Presence of right artificial shoulder joint (Chronic) Type 2 diabetes mellitus (Chronic) History of gastric restrictive surgery (Chronic) Non-healing surgical wound (Acute) Assessment: 1. Non-healing surgical wound (Acute). 2. Cutaneous abscess of right upper limb (Acute). 3. Presence of right artificial shoulder joint (Chronic). 4. Type 2 diabetes mellitus (Acute). 5. History of gastric restrictive surgery (Chronic) Plan: Patient had a right anterior shoulder incision/wound that was draining a significant amount of clear, serous drainage. Patient saw Dr. Mix on 05/22/18 and he removed the sutures and opened the incision and referred him to the wound center. He has had the SNAP vac negative pressure bandage on the wound, and today he is healed. Encouraged patient to massage incision daily with lotion. Instructed him to follow up with [facility]. Code Visit Office Visits / Consults: [id number] OV L3 Est
== END 2018-07-13 23:59 ==
LOC: WC 13:30
PROVIDERS: Family Provider Family Medicine; PCP Family Medicine; Visit Provider Nurse Practitioner Family
DX: T81.89XA Other complications of procedures, not elsewhere classified, initial encounter (principal); E11.9 Type 2 diabetes mellitus without complications; L02.413 Cutaneous abscess of right upper limb; Z96.611 Presence of right artificial shoulder joint; Z98.84 Bariatric surgery status
CPT/HCPCS: 11042; 97607; 99213; G0463

== ENCOUNTER 2019-02-04 10:15 | Outpatient (RCR) | payer MEDICAID, SELFPAY ==
[2018-07-14 01:17] VITALS: BP 140/77; PULSE 117; RESP 18; TEMP 37
[2019-01-20 09:36] VITALS: BP 145/78; PULSE 91; RESP 18; TEMP 36.9; BMI 48.5
--- NOTE | 2019-01-20 13:27 | PCM.WC.HP ---
(1) Skin ulcer of shoulder with fat layer exposed Status: Acute Current Visit: Yes Code(s): L98.492 - Non-pressure chronic ulcer of skin of other sites with fat layer exposed (2) Type 2 diabetes mellitus Status: Chronic Current Visit: Yes Code(s): E11.9 - Type 2 diabetes mellitus without complications History of Present Illness Date of Service: 01/20/19 Chief Complaint: Left shoulder ulcer/abscess. History of Wound: Patient had right shoulder surgery in 2018. He had complications following surgery for which he was managed/healed here however, recently noted a blister over the area. Yesterday, noted drainage which he described as initially clear/bloody. Denies significant pain or discomfort. Purulent drainage was noted by intake nurse today. History of type 2 diabetes which he states is well controlled. Last A1c 3 months ago was said to be 7.2. Past Medical History Past Medical History: Chronic Problems (Last Updated 03/30/18 @ 16:10 by Therese Cesar) Presence of right artificial shoulder joint (Chronic) Type 2 diabetes mellitus (Chronic) History of gastric restrictive surgery (Chronic) Surgical History: - - History of Gastric Sleeve 2013 Allergies/Adverse Reactions: Allergies No Known Allergies Allergy (Verified 04/06/18 08:12) Home Medications: Ambulatory Orders Medication Instructions Recorded Biotin 20,000 mcg PO BID 10/31/16 Calcium Citrate/Vitamin D3 2 ea PO DAILY 10/31/16 [Calcium Citrate-Vit D3 Tablet] Cholecalciferol (Vitamin D3) 1,000 unit PO DAILY 10/31/16 [Vitamin D3] Cyanocobalamin [Vitamin B12] 500 mcg PO DAILY@0800 10/31/16 Fluticasone 0.05% [Flonase Nasal 1 spray NASAL PRN PRN 10/31/16 [place]] Levothyroxine [Synthroid] 175 mcg PO SUTUTHSA 10/31/16 Levothyroxine [Synthroid] 200 mcg PO MOWEFR 10/31/16 Lisinopril [Zestril] 20 mg PO DAILY 10/31/16 Magnesium 400 mg PO DAILY 10/31/16 [place]-3/Dha/Epa/Fish Oil [Fish Oil 1 ea PO BID 10/31/16 1,400 mg Softgel] Ranitidine [Zantac] 150 mg PO BID 10/31/16 metFORMIN HCl [Glucophage] 1,000 mg PO BIDCM 11/04/17 Docusate Sodium [Colace] 100 mg PO BID PRN PRN #10 cap 11/12/17 celecoxib 200 mg capsule 200 mg PO DAILY 03/30/18 Acetaminophen [Tylenol] 1,000 mg PO Q8 tablet 04/29/18 Furosemide 01/20/19 Smoking Status: Former smoker Review of Systems Constitutional: Denies: Anorexia, Chills, Fever Eyes: Denies: Pain, Redness HEENT: Reports: Difficulty Swallowing. Denies: Difficulty Hearing Cardiovascular: Denies: Chest Pain, Chest Pressure, Chest Tightness Respiratory: Denies: Hemoptysis Gastrointestinal: Denies: Abdominal Pain, Hematemesis, Vomiting Skin: Denies: Jaundice - Physical Exam Vital Signs Temp Pulse Resp BP 98.4 F 91 18 145/78 H 01/20/19 09:36 01/20/19 09:36 01/20/19 09:36 01/20/19 09:36 General: Alert, Oriented x3, Cooperative, No apparent distress HEENT: Atraumatic, Normocephalic Oral: Moist Mucosa Neck: Supple Lungs: Normal air movement Cardiovascular: Regular rate, Regular Rhythm, Normal S1, Normal S2 Abdomen: Soft, Non Tender, Obese Extremities: No cyanosis Skin: Ulcer/ Wound Wound Measurements and Assessment WC - Nurse 1 - General Ulcer Measurement Start: 01/20/19 09:35 Freq: Status: Active Protocol: Activity Type Activity Date Activity User E-Sign Co-Sign Detail Recorded Client Recorded Date Recorded By Document 01/20/19 09:36 [id number] 01/20/19 09:56 01/20/19 09:36 Wound Center Nurse 1 [Ulcer Assessment] #2 Right anterior shoulder -Combined with other wound No -Current Size (cm) - Length 0.1 -Current Size (cm) - Width 0.1 -Current Size (cm) - Depth 0.1 -Total Square Cm 0.01 -Photo Taken Yes -Epithelialization None Present -Tunneling No -Undermining/Tunneling No -Circular Undermining No -Exudate Amt Medium -Exudate Type Purulent -Wound Margin Thickened -Granulation Amt None Present (0 %) -Granulation Quality N/A -Slough/Fibrin No -Necrosis Amt None Present (0 %) -Necrotic Tissue Type Adherent Slough -Structure Exposed None/Limited to Skin Breakdown -Texture ([place]-wound Skin Appearance) Assessed, Localized Edema ,Scarring -Moisture ([place]-wound Skin Appearance Assessed, ) Weeping -Color ([place]-wound Skin Appearance) Assessed, Erythema -Temperature ([place]-wound Skin No Abnormality Appearance) (Pt Warm) -Tenderness on Palpation ([place]-wound Yes Skin Appearance) -Ulcer Cleansing Rinsed/ Irrigated with Saline -Foul Odor after Cleansing No -Anesthetic Used 5% Lidocaine Gel WC - Nurse 2 - General Ulcer CM Notes Start: 01/20/19 09:35 Freq: Status: Active Protocol: Activity Type Activity Date Activity User E-Sign Co-Sign Detail Recorded Client Recorded Date Recorded By Document 01/20/19 10:22 MW [id number] 01/20/19 10:31 MW 01/20/19 10:22 Wound Center Nurse 2 [Procedure/Treatment] -Time 10:22 -Correct Patient Yes -Correct Side, Site, Position Yes -Correct Procedure Yes -Procedure Performed Yes -Type of Procedure Debridement -Clinical Debridement Subcutaneous -Post Debridement Size (cm) - Length 1.0 -Post Debridement Size (cm) - Width 2.6 -Post Debridement Size (cm) - Depth 1.2 -Total Square Cm 2.60 -Wound/Ulcer Outcome Not Healed -Ulcer Cleansing Rinsed/ Irrigated with Saline -Foul Odor after Cleansing No -Bioengineered Tissue No -Bleeding Controlled with Pressure -Offloading No -Treatment Response Procedure Tolerated Well [See Physician Procedure note for Specifics] Pain Scale: 0-10 Numeric [Pain] -Is Patient Pain Free? Yes Musculoskeletal: No Muscle Wasting Neurological: Cranial nerves II-XII grossly intact Psych/Mental Status: Normal Affect Debridement Note Post-Debridement Measurements/Treatment WC - Nurse 2 - General Ulcer CM Notes Start: 01/20/19 09:35 Freq: Status: Active Protocol: Activity Type Activity Date Activity User E-Sign Co-Sign Detail Recorded Client Recorded Date Recorded By Document 01/20/19 10:22 MW [id number] 01/20/19 10:31 MW 01/20/19 10:22 Wound Center Nurse 2 #2 Right anterior shoulder -Time 10:22 -Correct Patient Yes -Correct Side, Site, Position Yes -Correct Procedure Yes -Procedure Performed Yes -Type of Procedure Debridement -Clinical Debridement Subcutaneous -Post Debridement Size (cm) - Length 1.0 -Post Debridement Size (cm) - Width 2.6 -Post Debridement Size (cm) - Depth 1.2 -Total Square Cm 2.60 -Wound/Ulcer Outcome Not Healed -Ulcer Cleansing Rinsed/ Irrigated with Saline -Foul Odor after Cleansing No -Bioengineered Tissue No -Bleeding Controlled with Pressure -Offloading No -Treatment Response Procedure Tolerated Well Pain Scale: 0-10 Numeric Is Patient Pain Free? Yes Wound debrided: Right shoulder Wound Grade/Stage: Stage III Type of Debridement: Excisional debridement Anesthesia Used: 4% Lidocaine Solution Depth: Down to and including healthy tissue, in the subcutaneous layer Percentage of wound debrided: 100 Instrument Used: 3mm curette, #15 blade, Forceps Tissue Removed: Devitalized tissue and purulent discharge Severity: Fat Layer Exposed Amount of bleeding with debridement: Mild Bleeding Controlled with: Pressure Patient tolerated procedure well Assessment/Plan Active Problems (Last Updated 03/30/18 @ 16:10 by Therese Cesar) Type 2 diabetes mellitus (Chronic) Skin ulcer of shoulder with fat layer exposed (Acute) Assessment: Right shoulder ulceration status post abscess status post surgery in 2018. Type 2 diabetes mellitus. Plan: Debridement done as documented above. Procedure was well-tolerated. Cultures taken. For now, Aquacel silver daily to twice daily depending on drainage. Gauze over top. Optimal diabetes management. Increased protein intake also recommended. His questions were answered and he was advised to call with any questions or concerns. Follow-up in 1 week. This note was generated with [employer] dictation software. It may contain incorrect words, spelling, and punctuation that were not noted in checking the note before signing.
[2019-02-04 10:34] VITALS: BP 165/83; PULSE 83; RESP 18; TEMP 36.1; BMI 48.5
--- NOTE | 2019-02-04 11:32 | PCM.WC.PN ---
(1) Skin ulcer of shoulder with fat layer exposed Status: Acute Current Visit: Yes Code(s): L98.492 - Non-pressure chronic ulcer of skin of other sites with fat layer exposed (2) Type 2 diabetes mellitus Status: Chronic Current Visit: Yes Code(s): E11.9 - Type 2 diabetes mellitus without complications Type of Wound Date of Service: 02/04/19 Chief Complaint: Left shoulder ulcer/abscess. History of Wound: Patient had right shoulder surgery in 2018. He had complications following surgery for which he was managed/healed here however, recently noted a blister over the area. Yesterday, noted drainage which he described as initially clear/bloody. Denies significant pain or discomfort. Purulent drainage was noted by intake nurse today. History of type 2 diabetes which he states is well controlled. Last A1c 3 months ago was said to be 7.2. Progress of Wound: Signifcantt improvement. No new concerns at this time. - Physical Exam Vital Signs Temp Pulse Resp BP 97.0 F L 83 18 165/83 H 02/04/19 10:34 02/04/19 10:34 02/04/19 10:34 02/04/19 10:34 General: Alert, Oriented x3, Cooperative, No apparent distress HEENT: Atraumatic, Normocephalic Oral: Moist Mucosa Neck: Supple Lungs: Normal air movement Abdomen: Non Tender, Obese Extremities: No cyanosis Skin: Ulcer/ Wound Wound Measurements and Assessment WC - Nurse 1 - General Ulcer Measurement Start: 01/20/19 09:35 Freq: Status: Active Protocol: Activity Type Activity Date Activity User E-Sign Co-Sign Detail Recorded Client Recorded Date Recorded By Document 02/04/19 10:34 DV [id number] 02/04/19 10:44 DV 02/04/19 10:34 Wound Center Nurse 1 [Ulcer Assessment] #2 Right anterior shoulder -Combined with other wound No -Current Size (cm) - Length 0.3 -Current Size (cm) - Width 0.3 -Current Size (cm) - Depth 0.1 -Total Square Cm 0.09 -Photo Taken No -Epithelialization None Present -Tunneling No -Undermining/Tunneling No -Circular Undermining No -Exudate Amt Medium -Exudate Type Yellow/Green -Wound Margin Indistinct, Non -Visible -Granulation Amt None Present (0 %) -Granulation Quality N/A -Slough/Fibrin No -Necrosis Amt None Present (0 %) -Structure Exposed None/Limited to Skin Breakdown -Texture ([place]-wound Skin Appearance) Assessed,Rash -Moisture ([place]-wound Skin Appearance Assessed, ) Weeping -Color ([place]-wound Skin Appearance) Assessed, Erythema -Temperature ([place]-wound Skin No Abnormality Appearance) (Pt Warm) -Tenderness on Palpation ([place]-wound No Skin Appearance) -Ulcer Cleansing Rinsed/ Irrigated with Saline -Foul Odor after Cleansing No -Anesthetic Used 4% Lidocaine Solution - Nurse 2 - General Ulcer CM Notes Start: 01/20/19 09:35 Freq: Status: Active Protocol: Activity Type Activity Date Activity User E-Sign Co-Sign Detail Recorded Client Recorded Date Recorded By Document 02/04/19 10:54 MW [id number] 02/04/19 10:59 MW 02/04/19 10:54 Wound Center Nurse 2 [Procedure/Treatment] -Time 10:56 -Correct Patient Yes -Correct Side, Site, Position Yes -Correct Procedure Yes -Procedure Performed Yes -Type of Procedure Debridement -Clinical Debridement Subcutaneous -Post Debridement Size (cm) - Length 0.5 -Post Debridement Size (cm) - Width 0.4 -Post Debridement Size (cm) - Depth 0.1 -Total Square Cm 0.20 -Wound/Ulcer Outcome Not Healed -Ulcer Cleansing Rinsed/ Irrigated with Saline -Foul Odor after Cleansing No -Bioengineered Tissue No -Bleeding Controlled with Pressure -Offloading No -Treatment Response Procedure Tolerated Well [See Physician Procedure note for Specifics] Pain Scale: 0-10 Numeric [Pain] -Is Patient Pain Free? Yes Musculoskeletal: No Muscle Wasting Neurological: Cranial nerves II-XII grossly intact Psych/Mental Status: Normal Affect Debridement Note Post-Debridement Measurements/Treatment - Nurse 2 - General Ulcer CM Notes Start: 01/20/19 09:35 Freq: Status: Active Protocol: Activity Type Activity Date Activity User E-Sign Co-Sign Detail Recorded Client Recorded Date Recorded By Document 01/20/19 10:22 MW [id number] 01/20/19 10:31 MW Document 02/04/19 10:54 MW [id number] 02/04/19 10:59 MW 01/20/19 02/04/19 10:22 10:54 Wound Center Nurse 2 #2 Right anterior shoulder -Time 10:22 10:56 -Correct Patient Yes Yes -Correct Side, Site, Position Yes Yes -Correct Procedure Yes Yes -Procedure Performed Yes Yes -Type of Procedure Debridement Debridement -Clinical Debridement Subcutaneous Subcutaneous -Post Debridement Size (cm) - Length 1.0 0.5 -Post Debridement Size (cm) - Width 2.6 0.4 -Post Debridement Size (cm) - Depth 1.2 0.1 -Total Square Cm 2.60 0.20 -Wound/Ulcer Outcome Not Healed Not Healed -Ulcer Cleansing Rinsed/ Rinsed/ Irrigated with Irrigated with Saline Saline -Foul Odor after Cleansing No No -Bioengineered Tissue No No -Bleeding Controlled with Pressure Pressure -Offloading No No -Treatment Response Procedure Procedure Tolerated Well Tolerated Well Pain Scale: 0-10 Numeric Is Patient Pain Free? Yes Yes Wound debrided: Right shoulder/ upper extremity Wound Grade/Stage: Stage III Type of Debridement: Excisional debridement Anesthesia Used: 4% Lidocaine Solution Depth: Down to and including healthy tissue, in the subcutaneous layer Percentage of wound debrided: 100 Instrument Used: 3mm curette Tissue Removed: Devitalized tissue Severity: Fat Layer Exposed Amount of bleeding with debridement: Mild Bleeding Controlled with: Pressure Patient tolerated procedure well Assessment/Plan Active Problems (Last Updated 03/30/18 @ 16:10 by Therese Cesar) Type 2 diabetes mellitus (Chronic) Skin ulcer of shoulder with fat layer exposed (Acute) Assessment: Right shoulder ulceration status post abscess status post surgery in 2018. Type 2 diabetes mellitus. Plan: Debridement done as documented above. Procedure was well-tolerated. Signifcant improvement in the past 2 weeks. Started on Augmentin per culture/sensitivity. Continue Aquacel silver daily to twice daily depending on drainage. Gauze over top. Optimal diabetes management. Increased protein intake also recommended. His questions were answered and he was advised to call with any questions or concerns. Follow-up in 1 week. This note was generated with [employer] software. It may contain incorrect words, spelling, and punctuation that were not noted in checking the note before signing.
== END 2019-02-10 23:59 ==
LOC: WC 10:15
PROVIDERS: Family Provider Family Medicine; PCP Family Medicine; Visit Provider Internal Medicine
DX: T81.89XA Other complications of procedures, not elsewhere classified, initial encounter (principal); Y83.8 Other surgical procedures as the cause of abnormal reaction of the patient, or of later complication, without mention of misadventure at the time of the procedure; E11.9 Type 2 diabetes mellitus without complications; Z98.84 Bariatric surgery status; Z96.611 Presence of right artificial shoulder joint; L98.492 Non-pressure chronic ulcer of skin of other sites with fat layer exposed
CPT/HCPCS: 11042; 87070; 87075; 87077; 87205; 99213; G0463

== ENCOUNTER 2019-02-24 08:30 | Outpatient (RCR) | payer MEDICAID, SELFPAY ==
[2019-02-11 00:09] VITALS: BP 165/83; PULSE 83; RESP 18; TEMP 36.1
[2019-02-11 09:21] VITALS: BP 173/84; PULSE 84; RESP 22; TEMP 36.6; BMI 48.5
--- NOTE | 2019-02-11 09:41 | PCM.WC.PN ---
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 History of Wound: Patient had right shoulder surgery in 2018. He had complications following surgery for which he was managed/healed here however, recently noted a blister over the area. Yesterday, noted drainage which he described as initially clear/bloody. Denies significant pain or discomfort. Purulent drainage was noted by intake nurse today. History of type 2 diabetes which he states is well controlled. Last A1c 3 months ago was said to be 7.2. Progress of Wound: No Change in the past week. Still reports copious amount of drainage. - Physical Exam Vital Signs Temp Pulse Resp BP 97.8 F 84 22 H 173/84 H 02/11/19 09:21 02/11/19 09:21 02/11/19 09:21 02/11/19 09:21 General: Alert, Oriented x3, Cooperative, No apparent distress HEENT: Atraumatic, Normocephalic Oral: Moist Mucosa Neck: Supple Lungs: Normal air movement Abdomen: Non Tender, Obese Extremities: No cyanosis Skin: Ulcer/ Wound Wound Measurements and Assessment WC - Nurse 1 - General Ulcer Measurement Start: 02/11/19 09:21 Freq: Status: Active Protocol: Activity Type Activity Date Activity User E-Sign Co-Sign Detail Recorded Client Recorded Date Recorded By Document 02/11/19 09:21 DL [id number] 02/11/19 09:25 DL 02/11/19 09:21 Wound Center Nurse 1 [Ulcer Assessment] #2 Right anterior shoulder -Current Size (cm) - Length 0.5 -Current Size (cm) - Width 0.4 -Current Size (cm) - Depth 0.1 -Total Square Cm 0.20 -Photo Taken No -Exudate Amt Large -Exudate Type Yellow/Green -Wound Margin Distinct, Outline Attached -Granulation Amt Large (67-100%) -Granulation Quality Red -Necrosis Amt None Present (0 %) -Structure Exposed N/A -Texture (Sydnee-wound Skin Appearance) Scarring -Moisture ([place]ydnee-wound Skin Appearance No Abnormality ) -Color ([place]ydnee-wound Skin Appearance) No Abnormality -Temperature ([place]-wound Skin No Abnormality Appearance) (Pt Warm) -Tenderness on Palpation (Sydnee-wound No Skin Appearance) -Ulcer Cleansing Rinsed/ Irrigated with Saline -Foul Odor after Cleansing No -Anesthetic Used 5% Lidocaine Gel WC - Nurse 2 - General Ulcer CM Notes Start: 02/11/19 09:21 Freq: Status: Active Protocol: Activity Type Activity Date Activity User E-Sign Co-Sign Detail Recorded Client Recorded Date Recorded By Document 02/11/19 09:28 MW [id number] 02/11/19 09:34 MW 02/11/19 09:28 Wound Center Nurse 2 [Procedure/Treatment] -Time 09:29 -Correct Patient Yes -Correct Side, Site, Position Yes -Correct Procedure Yes -Procedure Performed Yes -Type of Procedure Debridement -Clinical Debridement Subcutaneous -Post Debridement Size (cm) - Length 0.5 -Post Debridement Size (cm) - Width 0.3 -Post Debridement Size (cm) - Depth 0.1 -Total Square Cm 0.15 -Wound/Ulcer Outcome Not Healed -Ulcer Cleansing Rinsed/ Irrigated with Saline -Foul Odor after Cleansing No -Bioengineered Tissue No -Bleeding Controlled with Pressure -Offloading No -Treatment Response Procedure Tolerated Well [See Physician Procedure note for Specifics] Pain Scale: 0-10 Numeric [Pain] -Is Patient Pain Free? Yes Musculoskeletal: No Muscle Wasting Neurological: Cranial nerves II-XII grossly intact Psych/Mental Status: Normal Affect Debridement Note Post-Debridement Measurements/Treatment - Nurse 2 - General Ulcer CM Notes Start: 02/11/19 09:21 Freq: Status: Active Protocol: Activity Type Activity Date Activity User E-Sign Co-Sign Detail Recorded Client Recorded Date Recorded By Document 02/11/19 09:28 MW [id number] 02/11/19 09:34 MW 02/11/19 09:28 Wound Center Nurse 2 #2 Right anterior shoulder -Time 09:29 -Correct Patient Yes -Correct Side, Site, Position Yes -Correct Procedure Yes -Procedure Performed Yes -Type of Procedure Debridement -Clinical Debridement Subcutaneous -Post Debridement Size (cm) - Length 0.5 -Post Debridement Size (cm) - Width 0.3 -Post Debridement Size (cm) - Depth 0.1 -Total Square Cm 0.15 -Wound/Ulcer Outcome Not Healed -Ulcer Cleansing Rinsed/ Irrigated with Saline -Foul Odor after Cleansing No -Bioengineered Tissue No -Bleeding Controlled with Pressure -Offloading No -Treatment Response Procedure Tolerated Well Pain Scale: 0-10 Numeric Is Patient Pain Free? Yes Wound debrided: Right shoulder Wound Grade/Stage: Stage II Type of Debridement: Excisional debridement Anesthesia Used: 4% Lidocaine Solution Depth: Down to and including healthy tissue, in the subcutaneous layer Percentage of wound debrided: 100 Instrument Used: #15 blade, Forceps Tissue Removed: Devitalized tissue Severity: Fat Layer Exposed Amount of bleeding with debridement: Mild Bleeding Controlled with: Pressure Patient tolerated procedure well Assessment/Plan Active Problems (Last Updated 03/30/18 @ 16:10 by Therese Cesar) Non-healing surgical wound (Chronic) Assessment: Right shoulder ulceration status post abscess status post surgery in 2018. Type 2 diabetes mellitus. Plan: Debridement done as documented above. Procedure was well-tolerated. No significant chnage in the past week however patient reports significnat drainage. Similar episode last year which subsequently healed but now recurred. Was seen by 2 local orthopedic surgeons. Due to recurrence, i beleive he would nbeed surgical exploration of the joint and draiange/ opening is on the suture line. Continue Aquacel silver daily to twice daily depending on drainage. Gauze and ABD over top. Optimal diabetes management. Increased protein intake also recommended. [facility] orthopedics has been recommended. His questions were answered and he was advised to call with any questions or concerns. Follow-up in 1 week. This note was generated with [employer] dictation software. It may contain incorrect words, spelling, and punctuation that were not noted in checking the note before signing.
[2019-02-18 11:45] VITALS: BP 133/81; PULSE 93; RESP 18; TEMP 37.2; BMI 48.5
--- NOTE | 2019-02-18 12:51 | PCM.WC.PN ---
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 History of Wound: Patient had right shoulder surgery in 2018. He had complications following surgery for which he was managed/healed here however, recently noted a blister over the area. Yesterday, noted drainage which he described as initially clear/bloody. Denies significant pain or discomfort. Purulent drainage was noted by intake nurse today. History of type 2 diabetes which he states is well controlled. Last A1c 3 months ago was said to be 7.2. Progress of Wound: Minimal area left. Patient also reports less drainage. - Physical Exam Vital Signs Temp Pulse Resp BP 98.9 F 93 18 133/81 H 02/18/19 11:45 02/18/19 11:45 02/18/19 11:45 02/18/19 11:45 General: Alert, Oriented x3, Cooperative, No apparent distress HEENT: Atraumatic, Normocephalic Neck: Supple Lungs: Normal air movement Extremities: No cyanosis Skin: Ulcer/ Wound Wound Measurements and Assessment WC - Nurse 1 - General Ulcer Measurement Start: 02/11/19 09:21 Freq: Status: Active Protocol: Activity Type Activity Date Activity User E-Sign Co-Sign Detail Recorded Client Recorded Date Recorded By Document 02/18/19 11:45 [email or web address] [id number] 02/18/19 11:46 RB 02/18/19 11:45 Wound Center Nurse 1 [Ulcer Assessment] #2 Right anterior shoulder -Combined with other wound No -Current Size (cm) - Length 0.3 -Current Size (cm) - Width 0.3 -Current Size (cm) - Depth 0.1 -Total Square Cm 0.09 -Tunneling No -Undermining/Tunneling No -Circular Undermining No -Exudate Amt Small -Exudate Type Serosanguineous -Wound Margin Distinct, Outline Attached -Granulation Amt Large (67-100%) -Granulation Quality Velma -Slough/Fibrin Yes -Necrosis Amt Small (1-33%) -Necrotic Tissue Type Adherent Slough -Structure Exposed N/A -Texture (Sydnee-wound Skin Appearance) Assessed, Scarring -Moisture ([place]ydnee-wound Skin Appearance Assessed ) -Color (Syd[place]-wound Skin Appearance) Assessed -Temperature ([place]-wound Skin No Abnormality Appearance) (Pt Warm) -Tenderness on Palpation ([place]yd[place]-wound No Skin Appearance) -Ulcer Cleansing Wound Cleanser -Foul Odor after Cleansing No -Anesthetic Used 5% Lidocaine Gel Musculoskeletal: No Muscle Wasting Neurological: Cranial nerves II-XII grossly intact Psych/Mental Status: Normal Affect Debridement Note Post-Debridement Measurements/Treatment WC - Nurse 2 - General Ulcer CM Notes Start: 02/11/19 09:21 Freq: Status: Active Protocol: Activity Type Activity Date Activity User E-Sign Co-Sign Detail Recorded Client Recorded Date Recorded By Document 02/11/19 09:28 MW [id number] 02/11/19 09:34 MW 02/11/19 09:28 Wound Center Nurse 2 #2 Right anterior shoulder -Time 09:29 -Correct Patient Yes -Correct Side, Site, Position Yes -Correct Procedure Yes -Procedure Performed Yes -Type of Procedure Debridement -Clinical Debridement Subcutaneous -Post Debridement Size (cm) - Length 0.5 -Post Debridement Size (cm) - Width 0.3 -Post Debridement Size (cm) - Depth 0.1 -Total Square Cm 0.15 -Wound/Ulcer Outcome Not Healed -Ulcer Cleansing Rinsed/ Irrigated with Saline -Foul Odor after Cleansing No -Bioengineered Tissue No -Bleeding Controlled with Pressure -Offloading No -Treatment Response Procedure Tolerated Well Pain Scale: 0-10 Numeric Is Patient Pain Free? Yes No debridement was completed today Assessment/Plan Active Problems (Last Updated 03/30/18 @ 16:10 by Therese Cesar) Non-healing surgical wound (Chronic) Skin ulcer of shoulder with fat layer exposed (Chronic) Assessment: Right shoulder ulceration status post abscess status post surgery in 2018. Type 2 diabetes mellitus. Plan: Improving. No debridement completed today. Similar episode last year which subsequently healed but now recurred. Was seen by 2 local orthopedic surgeons. Due to recurrence, i believe he would benefit from surgical exploration. Scheduled to see Dr. Mix on Friday. Continue Aquacel silver daily to twice daily depending on drainage. Gauze and ABD over top. Optimal diabetes management. Increased protein intake also recommended. His questions were answered and he was advised to call with any questions or concerns. Follow-up in 2 weeks. This note was generated with [employer] dictation software. It may contain incorrect words, spelling, and punctuation that were not noted in checking the note before signing.
== END 2019-03-13 23:59 ==
LOC: WC 08:30
PROVIDERS: Family Provider Family Medicine; PCP Family Medicine; Visit Provider Internal Medicine
DX: T81.89XA Other complications of procedures, not elsewhere classified, initial encounter (principal); Y83.8 Other surgical procedures as the cause of abnormal reaction of the patient, or of later complication, without mention of misadventure at the time of the procedure; L98.492 Non-pressure chronic ulcer of skin of other sites with fat layer exposed; E11.622 Type 2 diabetes mellitus with other skin ulcer
CPT/HCPCS: 11042; 99213; G0463

== ENCOUNTER → 2019-03-04 | Outpatient (CLI) | payer MEDICAID, SELFPAY ==
[2019-02-18 11:45] VITALS: BMI 48.5
--- NOTE | 2019-03-04 09:32 | RAD_ITS ---
PROCEDURE: FLUOROSCOPIC GUIDED HIP INJECTION DATE: 03/04/2019 CLINICAL INDICATION: Patient with wound drainage in the right shoulder region. PHYSICIAN: Dr. Montez Paiz M.D. ACCESS SITE: Right shoulder joint. NEEDLE: 18-gauge spinal needle. FLUOROSCOPY TIME (if supplied): ( ) minutes/seconds FINDINGS: The risks, benefits, and alternatives to the procedure were explained to the patient. The specific risks of bleeding, infection, and neurovascular injury were detailed and accepted. Witnessed informed consent was obtained. Spinal needle was positioned under right shoulder joint fluoroscopic localization, away from the draining site through the intact skin into the joint joint. Approximately 0.5 cc of Omnipaque 300 injected for confirmation of the needle tip within the shoulder joint. Aspiration did not result in any fluid acquired. A total of 3 cc of normal saline was injected into the right shoulder joint, and the aspirate acquired from the shoulder was then sent to the laboratory for appropriate analysis including cell count, Gram stain, and culture and sensitivity. The patient tolerated the procedure well without any immediate complications. RAD/Inj/Asp Bill Jt Should/Hip/Knee IMPRESSION: 1. There is no evidence of significant joint effusion in the right shoulder. 2. 3 cc of normal saline injected into the right shoulder joint, and subsequent aspirate obtained from the right shoulder joint was submitted for appropriate laboratory analysis including cell count, Gram stain, and also culture and sensitivity. Electronically Signed: Montez Paiz MD at 12:05 EDT Tel [phone], Service support ,
[2019-03-04 09:43] LABS: Erythrocyte Sedimentation Rate 26 mm/hr (0-20)
[2019-03-04 09:44] LABS: Absolute Lymphocyte Count 2.22 X10^3/uL (0.83-4.51); Absolute Neutrophil Count 3.4 X10^3/uL (2.0-7.7); Basophil# 0.04 X10^3/uL; Basophil% 0.6 % (0-1); Eosinophil# 0.14 X10^3/uL; Eosinophils% 2.2 % (0-5); Hematocrit 44.2 % (40-54); Lymphocyte # 2.22 X10^3/ul (4.0); Mean Corp Hgb Conc 31.7 g/dL (32-36); Mean Corpuscular Hgb 26.9 pg (27.0-32.0); Monocyte# 0.56 X10^3/uL; Monocyte% 8.8 % (0-10); NRBC Flagged by Analyzer 0 % (0-5); Neutrophil # 3.36 X10^3/uL (2.7-7.7); Neutrophil % 52.9 % (47-70); Platelet Count 286 K/mm3 (150-450); RBC Distribution Width CV 15.6 % (11.6-14.6); RBC Distribution Width SD 48.3 fl (35.1-43.9); White Blood Count 6.4 K/mm3 (4.4-11.0)
[2019-03-04 09:54] LABS: CRP 5.68 mg/L (0.0-3.0)
[2019-03-05 11:30] LABS: ALB/GLOB Ratio 0.8 RATIO (0.9-2.4); AST(SGOT) 21 U/L (15-37); Alanine Aminotransfer ALT/SGPT 32 U/L (16-61); Albumin, Serum 3.4 g/dL (3.2-5.0); Alkaline Phosphatase 88 U/L (45-117); Anion Gap 8 (5-15); BUN 18 mg/dL (7-18); BUN/Creat Ratio 20.4 RATIO (10-20); Calcium,Total 8.8 mg/dL (8.5-10.1); Chloride 105 mmol/L (98-107); Creatinine, Serum 0.88 mg/dL (0.70-1.30); EST Glomerular Filtration Rate 92 mL/min (>60); Est Glom Filt Rate - Afr Amer 111 mL/min (>60); Globulin 4.1 g/dL (2.2-4.2); Glucose 131 mg/dL (74-106); Potassium 4.5 mmol/L (3.5-5.1); Protein, Total 7.5 g/dL (6.4-8.2); Sodium Level 139 mmol/L (136-145); Thyroid Stim Hormone (TSH) 0.69 uIU/mL (0.358-3.74)
== END | disposition home or self-care (01) ==
LOC: RAD 09:19
PROVIDERS: Family Provider Family Medicine; PCP Family Medicine; Referring Provider Specialist; Visit Provider Specialist
DX: T84.59XD Infection and inflammatory reaction due to other internal joint prosthesis, subsequent encounter (principal); E11.9 Type 2 diabetes mellitus without complications; E03.9 Hypothyroidism, unspecified
CPT/HCPCS: 20610; 36415; 77002; 80053; 84443; 85025; 85652; 86140; 87070; 87075; 87077; 87205; Q9967; A4216

== ENCOUNTER → 2020-09-13 12:55 | Outpatient (CLI) | payer MEDICARE, BC, SELFPAY ==
[2019-02-18 11:45] VITALS: BMI 48.5
[2020-09-13 15:15] LABS: Absolute Lymphocyte Count 1.64 X10^3/uL (0.83-4.51); Absolute Neutrophil Count 3.6 X10^3/uL (2.0-7.7); Basophil# 0.05 X10^3/uL; Basophil% 0.9 % (0-1); Eosinophil# 0.18 X10^3/uL; Eosinophils% 3.1 % (0-5); Hematocrit 45.4 % (40-54); Hemoglobin 13.9 g/dL (13.0-16.5); Lymphocyte # 1.64 X10^3/ul (4.0); Lymphocyte % 27.9 % (19-41); Mean Corp Hgb Conc 30.6 g/dL (32-36); Mean Corpuscular Hgb 27.3 pg (27.0-32.0); Mean Corpuscular Volume 89.2 fL (80-94); Mean Platelet Vol. 9.6 fl (6.2-12.0); Monocyte# 0.43 X10^3/uL; Monocyte% 7.3 % (0-10); NRBC Flagged by Analyzer 0 % (0-5); Neutrophil # 3.56 X10^3/uL (2.7-7.7); Neutrophil % 60.5 % (47-70); Platelet Count 277 K/mm3 (150-450); RBC Distribution Width CV 13.8 % (11.6-14.6); RBC Distribution Width SD 44.7 fl (35.1-43.9); Red Blood Count 5.09 M/mm3 (4.6-6.2); White Blood Count 5.9 K/mm3 (4.4-11.0)
[2020-09-13 16:12] LABS: ALB/GLOB Ratio 0.8 RATIO (0.9-2.4); AST(SGOT) 39 U/L (15-37); Alanine Aminotransfer ALT/SGPT 48 U/L (16-61); Albumin, Serum 3.4 g/dL (3.2-5.0); Alkaline Phosphatase 91 U/L (45-117); Anion Gap 7 (5-15); BUN 15 mg/dL (7-18); BUN/Creat Ratio 20.4 RATIO (10-20); Calcium,Total 9.4 mg/dL (8.5-10.1); Chloride 101 mmol/L (98-107); Cholesterol 188 mg/dL (200); Creatinine, Serum 0.74 mg/dL (0.70-1.30); EST Glomerular Filtration Rate 113 mL/min (>60); Est Glom Filt Rate - Afr Amer 137 mL/min (>60); Globulin 4.2 g/dL (2.2-4.2); Glucose 153 mg/dL (74-106); High Density Lipoprotein 41 mg/dL; Potassium 4.2 mmol/L (3.5-5.1); Protein, Total 7.6 g/dL (6.4-8.2); Sodium Level 136 mmol/L (136-145); Thyroid Stim Hormone (TSH) 1.27 uIU/mL (0.358-3.74); Triglycerides 312 mg/dL; Very Low Density Lipoprotein 62 mg/dL (5-40)
== END ==
PROVIDERS: PCP Family Medicine; Visit Provider Family Medicine
DX: E11.9 Type 2 diabetes mellitus without complications (principal); I10 Essential (primary) hypertension; E03.9 Hypothyroidism, unspecified; E11.29 Type 2 diabetes mellitus with other diabetic kidney complication; R80.9 Proteinuria, unspecified
CPT/HCPCS: 36415; 80053; 80061; 84443; 85025

== ENCOUNTER → 2022-06-04 | Outpatient (CLI) | payer MEDICARE, BC, SELFPAY ==
[2022-06-04 15:32] LABS: Absolute Lymphocyte Count 1.37 X10^3/uL (0.83-4.51); Absolute Neutrophil Count 5.2 X10^3/uL (2.0-7.7); Basophil# 0.03 X10^3/uL; Basophil% 0.4 % (0-1); Eosinophils% 1.4 % (0-5); Hematocrit 44.8 % (40-54); Hemoglobin 14.5 g/dL (13.0-16.5); Lymphocyte # 1.37 X10^3/ul (0.83-4.51); Lymphocyte % 18.9 % (19-41); Mean Corp Hgb Conc 32.4 g/dL (32-36); Mean Corpuscular Hgb 28.2 pg (27.0-32.0); Mean Platelet Vol. 9.7 fl (6.2-12.0); Monocyte# 0.56 X10^3/uL; Monocyte% 7.7 % (0-10); NRBC Flagged by Analyzer 0 % (0-5); Neutrophil # 5.17 X10^3/uL (2.7-7.7); Neutrophil % 71.3 % (47-70); Platelet Count 273 K/mm3 (150-450); RBC Distribution Width CV 14.4 % (11.6-14.6); RBC Distribution Width SD 45.8 fl (35.1-43.9); Red Blood Count 5.15 M/mm3 (4.6-6.2); White Blood Count 7.3 K/mm3 (4.4-11.0)
[2022-06-04 15:46] LABS: Vitamin B12 1337 pg/mL (211-911); Vitamin D,25 Hydroxy 55.4 ng/mL
[2022-06-04 16:03] LABS: ALB/GLOB Ratio 0.8 RATIO (0.9-2.4); AST(SGOT) 21 U/L (15-37); Alanine Aminotransfer ALT/SGPT 36 U/L (16-61); Albumin, Serum 3.3 g/dL (3.2-5.0); Alkaline Phosphatase 92 U/L (45-117); Anion Gap 9 (5-15); BUN 16 mg/dL (7-18); BUN/Creat Ratio 18.3 RATIO (10-20); Calcium,Total 9.8 mg/dL (8.5-10.1); Chloride 105 mmol/L (98-107); Cholesterol 177 mg/dL (200); Creatinine, Serum 0.88 mg/dL (0.70-1.30); EST Glomerular Filtration Rate 92 mL/min (>60); Est Glom Filt Rate - Afr Amer 111 mL/min (>60); Globulin 4.3 g/dL (2.2-4.2); Glucose 150 mg/dL (74-106); High Density Lipoprotein 38 mg/dL; Potassium 4.3 mmol/L (3.5-5.1); Protein, Total 7.6 g/dL (6.4-8.2); Sodium Level 139 mmol/L (136-145); T4 Free Direct 1.26 ng/dL (0.76-1.46); Thyroid Stim Hormone (TSH) 2.06 uIU/mL (0.358-3.74); Triglycerides 217 mg/dL; Very Low Density Lipoprotein 43 mg/dL (5-40)
== END | disposition home or self-care (01) ==
LOC: BFHLAB 11:36
PROVIDERS: PCP Family Medicine; Visit Provider Family Medicine
DX: I10 Essential (primary) hypertension (principal); E11.9 Type 2 diabetes mellitus without complications; E03.9 Hypothyroidism, unspecified
CPT/HCPCS: 36415; 80053; 80061; 82306; 82607; 84439; 84443; 85025

== ENCOUNTER 2022-06-10 15:30 | Inpatient (IN) | payer MEDICARE, BC, SELFPAY ==
[2022-06-10 16:09] VITALS: BP 161/77; PULSE 107; RESP 18; TEMP 37.1; O2SAT 92; O2SAT 93; BMI 47.0
[2022-06-10] MEDS: Ascorbic Acid 500 MG Tablet 1000 MG PO (19:42)
[2022-06-10] MEDS: metFORMIN HCl 1,000 MG Tablet 1000 MG PO (19:42)
[2022-06-10] MEDS: Electrolyte Solution/Peg's 4000 ML 1000 ML PO (19:43)
[2022-06-10] MEDS: Acetaminophen 500 MG Tablet 1000 MG PO (19:43)
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
[2022-06-10] MEDS: Nystatin Powder 15gm Bottle 1 APPLIC TOPICAL (20:55)
[2022-06-10] MEDS: oxyCODONE 5 MG Tablet PO (20:59)
[2022-06-11] MEDS: Polyethylene Glycol 3350 17 GM PACKET PO (05:10)
[2022-06-11] MEDS: Loratadine 10 MG Tablet PO (05:11)
[2022-06-11] MEDS: Lisinopril 20 MG Tablet PO (05:11)
[2022-06-11] MEDS: Magnesium Chloride 64 MG Delay Rel.Tablet 128 MG PO (05:11)
[2022-06-11] MEDS: Tolterodine Tartrate 2 MG CAP.SA PO (05:11)
[2022-06-11] MEDS: Cholecalciferol (VIT D3) 25 MCG TABLET (1,000 UNITS) PO (05:11)
[2022-06-11] MEDS: amLODIPine 5 MG Tablet PO (05:12)
[2022-06-11] MEDS: Levothyroxine 175 MCG Tablet PO (05:12)
[2022-06-11] MEDS: Celecoxib 200 MG Capsule PO (05:12)
[2022-06-11] MEDS: Senna/Docusate Sodium 1 Tablet 2 TABLET PO ×2 (05:12→17:18)
[2022-06-11] MEDS: Acetaminophen 500 MG Tablet 1000 MG PO ×3 (05:13→22:08)
[2022-06-11] MEDS: Ascorbic Acid 500 MG Tablet 1000 MG PO ×2 (05:14→17:18)
[2022-06-11] MEDS: Nystatin Powder 15gm Bottle 1 APPLIC TOPICAL ×2 (05:17→17:20)
[2022-06-11 06:01] LABS: Absolute Lymphocyte Count 1.87 X10^3/uL (0.83-4.51); Absolute Neutrophil Count 8.5 X10^3/uL (2.0-7.7); Basophil# 0.04 X10^3/uL; Basophil% 0.3 % (0-1); Eosinophil# 0.23 X10^3/uL; Eosinophils% 1.9 % (0-5); Hematocrit 26.2 % (40-54); Hemoglobin 8.5 g/dL (13.0-16.5); Lymphocyte # 1.87 X10^3/ul (0.83-4.51); Lymphocyte % 15.5 % (19-41); Mean Corp Hgb Conc 32.4 g/dL (32-36); Mean Corpuscular Hgb 28.6 pg (27.0-32.0); Mean Corpuscular Volume 88.2 fL (80-94); Mean Platelet Vol. 9.1 fl (6.2-12.0); Monocyte# 1.02 X10^3/uL; Monocyte% 8.5 % (0-10); NRBC Flagged by Analyzer 0.2 % (0-5); Neutrophil # 8.51 X10^3/uL (2.7-7.7); Neutrophil % 70.6 % (47-70); Platelet Count 392 K/mm3 (150-450); RBC Distribution Width CV 14.7 % (11.6-14.6); RBC Distribution Width SD 47.1 fl (35.1-43.9); Red Blood Count 2.97 M/mm3 (4.6-6.2); White Blood Count 12.1 K/mm3 (4.4-11.0)
[2022-06-11 06:35] LABS: Anion Gap 7 (5-15); BUN 15 mg/dL (7-18); BUN/Creat Ratio 21.7 RATIO (10-20); Calcium,Total 8.5 mg/dL (8.5-10.1); Chloride 99 mmol/L (98-107); Creatinine, Serum 0.69 mg/dL (0.70-1.30); EST Glomerular Filtration Rate 121 mL/min (>60); Est Glom Filt Rate - Afr Amer 146 mL/min (>60); Glucose 196 mg/dL (74-106); Sodium Level 135 mmol/L (136-145)
[2022-06-11] MEDS: metFORMIN HCl 1,000 MG Tablet 1000 MG PO ×2 (08:34→17:18)
[2022-06-11] MEDS: Multivitamins,Therapeutic Tablet 1 TABLET PO (08:34)
[2022-06-11] MEDS: glipiZIDE 5 MG Tablet PO (08:34)
[2022-06-11] MEDS: Menthol/Lanolin/Calamine/Znox 113 GM Tube 1 APPLIC TOPICAL ×2 (08:35→17:19)
[2022-06-11] MEDS: Tuberculin,Purif.prot.deriv. 50 TU/ML Vial 0.1 ML ID (09:57)
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
[2022-06-11 12:14] LABS: Bedside Glucose 215 mg/dL (74-106)
[2022-06-11 12:14] LABS: Bedside Glucose 271 mg/dL (74-106)
[2022-06-11 13:32] VITALS: BP 143/70; PULSE 105; RESP 21; TEMP 36.5; O2SAT 93
--- NOTE | 2022-06-11 16:18 | CASEMGMT ---
Social Work Met with patient to complete initial assessment. Introduced self and role. Verified contacts. Discussed code status and MOLST form. Pt confirms full code. MOLST placed in Dr folder. Educated to Medicare benefit. Encouraged to contact secondary insurance to ensure copay coverage. Pts goal is to return home with at [facility]. SW to continue to follow for DC planning. Eugenia Hancock, QUANTITATIVE ANALYST OCCUPATIONAL REHABILITATION AIDE
[2022-06-11 17:40] LABS: Bedside Glucose 106 mg/dL (74-106)
[2022-06-11] MEDS: MELATONIN 3 MG TABLET PO (22:08)
[2022-06-11 23:00] VITALS: PULSE 104; O2SAT 98
[2022-06-12] MEDS: amLODIPine 5 MG Tablet PO (05:47)
[2022-06-12] MEDS: Levothyroxine 100 MCG Tablet 200 MCG PO (05:47)
[2022-06-12] MEDS: Ascorbic Acid 500 MG Tablet 1000 MG PO ×2 (05:47→17:34)
[2022-06-12] MEDS: Lisinopril 20 MG Tablet PO (05:47)
[2022-06-12] MEDS: Celecoxib 200 MG Capsule PO (05:47)
[2022-06-12] MEDS: Tolterodine Tartrate 2 MG CAP.SA PO (05:47)
[2022-06-12] MEDS: Loratadine 10 MG Tablet PO (05:47)
[2022-06-12] MEDS: Acetaminophen 500 MG Tablet 1000 MG PO ×3 (05:47→21:19)
[2022-06-12] MEDS: Magnesium Chloride 64 MG Delay Rel.Tablet 128 MG PO (05:48)
[2022-06-12] MEDS: Cholecalciferol (VIT D3) 25 MCG TABLET (1,000 UNITS) PO (05:48)
[2022-06-12 05:49] LABS: Hematocrit 27.2 % (40-54); Hemoglobin 8.6 g/dL (13.0-16.5)
[2022-06-12 06:41] LABS: Bedside Glucose 200 mg/dL (74-106)
[2022-06-12 06:53] VITALS: BP 128/70; PULSE 97; RESP 16
[2022-06-12] MEDS: Multivitamins,Therapeutic Tablet 1 TABLET PO (08:04)
[2022-06-12] MEDS: metFORMIN HCl 1,000 MG Tablet 1000 MG PO ×2 (08:04→17:34)
[2022-06-12] MEDS: glipiZIDE 5 MG Tablet PO (08:05)
[2022-06-12] MEDS: Iron Polysaccharide Complex 150 MG CAPSULE PO (08:29)
[2022-06-12] MEDS: Nystatin Powder 15gm Bottle 1 APPLIC TOPICAL ×2 (09:04→21:17)
[2022-06-12] MEDS: Menthol/Lanolin/Calamine/Znox 113 GM Tube 1 APPLIC TOPICAL ×2 (09:09→21:17)
--- NOTE | 2022-06-12 09:17 | NURSING ---
Addendum entered by Sergo Sanchez 06/13/22 06:39: PT AND REQUESTING TO SEE INSTEAD OF . WILL ASK FOR CONSULT. RN AWARE Original Note: FOLLOW UP MADE WITH DR.MARK OLGUIN IN [place] AT 06/24/22 AT 1500. TRANSPORT NEEDS MADE. WILL CALL FAMILY. RN AWARE.
[2022-06-12 10:00] VITALS: PULSE 103; O2SAT 92
--- NOTE | 2022-06-12 11:53 | NURSING ---
Associate Professor Of Philosophy Note; Activity Asset: Complete
[2022-06-12 14:00] VITALS: BP 151/66; PULSE 99; RESP 18; TEMP 36.3; O2SAT 93
[2022-06-12] MEDS: Senna/Docusate Sodium 1 Tablet 2 TABLET PO (17:33)
[2022-06-12] MEDS: MELATONIN 3 MG TABLET PO (21:19)
[2022-06-13 05:35] VITALS: BP 141/69; PULSE 99
[2022-06-13] MEDS: amLODIPine 5 MG Tablet PO (05:38)
[2022-06-13] MEDS: Tolterodine Tartrate 2 MG CAP.SA PO (05:38)
[2022-06-13] MEDS: Acetaminophen 500 MG Tablet 1000 MG PO ×3 (05:38→22:24)
[2022-06-13] MEDS: Iron Polysaccharide Complex 150 MG CAPSULE PO (05:39)
[2022-06-13] MEDS: Loratadine 10 MG Tablet PO (05:39)
[2022-06-13] MEDS: Ascorbic Acid 500 MG Tablet 1000 MG PO ×2 (05:39→18:08)
[2022-06-13] MEDS: Lisinopril 20 MG Tablet PO (05:39)
[2022-06-13] MEDS: Celecoxib 200 MG Capsule PO (05:39)
[2022-06-13] MEDS: Magnesium Chloride 64 MG Delay Rel.Tablet 128 MG PO (05:39)
[2022-06-13] MEDS: Senna/Docusate Sodium 1 Tablet 2 TABLET PO ×2 (05:39→18:08)
[2022-06-13] MEDS: Cholecalciferol (VIT D3) 25 MCG TABLET (1,000 UNITS) PO (05:39)
[2022-06-13] MEDS: Levothyroxine 175 MCG Tablet PO (05:39)
[2022-06-13] MEDS: Polyethylene Glycol 3350 17 GM PACKET PO (05:40)
[2022-06-13 06:40] LABS: Bedside Glucose 190 mg/dL (74-106)
[2022-06-13] MEDS: glipiZIDE 5 MG Tablet PO (07:51)
[2022-06-13] MEDS: metFORMIN HCl 1,000 MG Tablet 1000 MG PO ×2 (07:51→18:08)
[2022-06-13] MEDS: Multivitamins,Therapeutic Tablet 1 TABLET PO (07:51)
[2022-06-13] MEDS: Menthol/Lanolin/Calamine/Znox 113 GM Tube 1 APPLIC TOPICAL ×2 (07:52→22:26)
[2022-06-13] MEDS: Nystatin Powder 15gm Bottle 1 APPLIC TOPICAL ×2 (07:52→22:26)
--- NOTE | 2022-06-13 08:56 | NURSING ---
PER CONSULT PT NOW HAS APPOINTMENT WITH DR. CARMONA ON 06/19/22 @ [id number].
--- NOTE | 2022-06-13 09:05 | NURSING ---
TRIED TO CONTACT PT TO UPDATE HER ON APPOINTMENT. NO ANSWER,WILL TRY AGAIN LATER,PT UPDATED.
[2022-06-13 13:50] VITALS: BP 123/62; PULSE 105; RESP 18; TEMP 36.8; O2SAT 93
--- NOTE | 2022-06-13 16:38 | NURSING ---
This nurse received Phone call from Dr. Aneudy Solorzano for X-ray of Lumbar Spine and MRI of lumbar spine without contrast. Orders read back.
--- NOTE | 2022-06-13 16:45 | RAD_ITS ---
INDICATION: Rule out L3 fracture EXAMINATION/TECHNIQUE: X-RAY - XR Spine Lumbar Min 4 Views COMPARISON: None. FINDINGS: VERTEBRAE: Preserved vertebral body height. No fracture. No spondylolisthesis. Preservation of the normal lumbar lordosis. Severe multilevel facet arthropathy. DISCS: Severe multilevel degenerative disc disease and spondylosis. INCLUDED ABDOMEN: Included bowel gas pattern is non-obstructive. RAD/L/S Spine Min 4 Views IMPRESSION: No evidence of lumbar spinal fracture or spondylolisthesis. Severe multilevel degenerative disc disease and spondylosis. Electronically Signed: Lucien Weaver MD at 17:24 EST ,
[2022-06-13 20:30] VITALS: TEMP 36.7
[2022-06-13 20:35] VITALS: PULSE 94; RESP 18; O2SAT 94
[2022-06-13] MEDS: MELATONIN 3 MG TABLET PO (22:24)
[2022-06-14] MEDS: Senna/Docusate Sodium 1 Tablet 2 TABLET PO (05:43)
[2022-06-14] MEDS: Polyethylene Glycol 3350 17 GM PACKET PO (05:43)
[2022-06-14] MEDS: Iron Polysaccharide Complex 150 MG CAPSULE PO (05:43)
[2022-06-14] MEDS: Magnesium Chloride 64 MG Delay Rel.Tablet 128 MG PO (05:43)
[2022-06-14] MEDS: Celecoxib 200 MG Capsule PO (05:43)
[2022-06-14] MEDS: Acetaminophen 500 MG Tablet 1000 MG PO ×3 (05:43→21:07)
[2022-06-14] MEDS: amLODIPine 5 MG Tablet PO (05:43)
[2022-06-14] MEDS: Tolterodine Tartrate 2 MG CAP.SA PO (05:43)
[2022-06-14] MEDS: Lisinopril 20 MG Tablet PO (05:43)
[2022-06-14] MEDS: Levothyroxine 100 MCG Tablet 200 MCG PO (05:44)
[2022-06-14] MEDS: Loratadine 10 MG Tablet PO (05:44)
[2022-06-14] MEDS: Cholecalciferol (VIT D3) 25 MCG TABLET (1,000 UNITS) PO (05:44)
[2022-06-14] MEDS: Ascorbic Acid 500 MG Tablet 1000 MG PO ×2 (05:44→17:05)
[2022-06-14 05:51] LABS: Hematocrit 29.7 % (40-54); Hemoglobin 8.6 g/dL (13.0-16.5)
[2022-06-14 06:41] LABS: Bedside Glucose 144 mg/dL (74-106)
[2022-06-14] MEDS: glipiZIDE 5 MG Tablet PO (10:01)
[2022-06-14] MEDS: Multivitamins,Therapeutic Tablet 1 TABLET PO (10:01)
[2022-06-14] MEDS: metFORMIN HCl 1,000 MG Tablet 1000 MG PO ×2 (10:01→17:05)
[2022-06-14] MEDS: Nystatin Powder 15gm Bottle 1 APPLIC TOPICAL ×2 (10:02→21:03)
--- NOTE | 2022-06-14 10:08 | NURSING ---
pt to have MRI of spine today, filling out questionaire. They can scan him at noon.
[2022-06-14 10:36] VITALS: PULSE 94; RESP 16; O2SAT 97
[2022-06-14] MEDS: Menthol/Lanolin/Calamine/Znox 113 GM Tube 1 APPLIC TOPICAL ×2 (10:48→21:08)
[2022-06-14 13:24] VITALS: BP 137/63; PULSE 99; RESP 18; TEMP 36.8; O2SAT 98
--- NOTE | 2022-06-14 14:05 | NURSING ---
Addendum entered by Iram Alexander 06/14/22 15:06: pt returned from MRI at this time Original Note: pt off unit to MRI via WC
--- NOTE | 2022-06-14 15:01 | NURSING ---
Dr Amado here earlier to see pt but pt in MRI, states he will be here tomorrow to see pt. xray negative for fractures
[2022-06-14] MEDS: MELATONIN 3 MG TABLET PO (21:07)
[2022-06-15] MEDS: Loratadine 10 MG Tablet PO (06:15)
[2022-06-15] MEDS: Celecoxib 200 MG Capsule PO (06:15)
[2022-06-15] MEDS: Iron Polysaccharide Complex 150 MG CAPSULE PO (06:16)
[2022-06-15] MEDS: Tolterodine Tartrate 2 MG CAP.SA PO (06:16)
[2022-06-15] MEDS: Magnesium Chloride 64 MG Delay Rel.Tablet 128 MG PO (06:16)
[2022-06-15] MEDS: amLODIPine 5 MG Tablet PO (06:18)
[2022-06-15] MEDS: Senna/Docusate Sodium 1 Tablet 2 TABLET PO ×2 (06:18→17:18)
[2022-06-15] MEDS: Lisinopril 20 MG Tablet PO (06:18)
[2022-06-15] MEDS: Ascorbic Acid 500 MG Tablet 1000 MG PO ×2 (06:19→17:18)
[2022-06-15] MEDS: Acetaminophen 500 MG Tablet 1000 MG PO ×3 (06:19→20:28)
[2022-06-15] MEDS: Levothyroxine 175 MCG Tablet PO (06:19)
[2022-06-15] MEDS: Cholecalciferol (VIT D3) 25 MCG TABLET (1,000 UNITS) PO (06:22)
[2022-06-15 06:36] LABS: Bedside Glucose 150 mg/dL (74-106)
[2022-06-15] MEDS: metFORMIN HCl 1,000 MG Tablet 1000 MG PO ×2 (08:52→17:19)
[2022-06-15] MEDS: glipiZIDE 5 MG Tablet PO (08:52)
[2022-06-15] MEDS: Multivitamins,Therapeutic Tablet 1 TABLET PO (08:52)
[2022-06-15] MEDS: Menthol/Lanolin/Calamine/Znox 113 GM Tube 1 APPLIC TOPICAL ×2 (08:53→20:34)
[2022-06-15] MEDS: Nystatin Powder 15gm Bottle 1 APPLIC TOPICAL ×2 (08:54→20:33)
[2022-06-15 10:00] VITALS: O2SAT 95
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
[2022-06-15 14:00] VITALS: BP 126/57; PULSE 92; RESP 18; TEMP 36.2; O2SAT 100
[2022-06-15] MEDS: MELATONIN 3 MG TABLET PO (20:28)
[2022-06-16] MEDS: Ascorbic Acid 500 MG Tablet 1000 MG PO ×2 (05:52→17:30)
[2022-06-16] MEDS: Senna/Docusate Sodium 1 Tablet 2 TABLET PO ×2 (05:52→17:30)
[2022-06-16] MEDS: Lisinopril 20 MG Tablet PO (05:53)
[2022-06-16] MEDS: Acetaminophen 500 MG Tablet 1000 MG PO ×3 (05:53→21:09)
[2022-06-16] MEDS: Loratadine 10 MG Tablet PO (05:53)
[2022-06-16] MEDS: Levothyroxine 175 MCG Tablet PO (05:53)
[2022-06-16] MEDS: Iron Polysaccharide Complex 150 MG CAPSULE PO (05:53)
[2022-06-16] MEDS: amLODIPine 5 MG Tablet PO (05:53)
[2022-06-16] MEDS: Cholecalciferol (VIT D3) 25 MCG TABLET (1,000 UNITS) PO (05:54)
[2022-06-16] MEDS: Magnesium Chloride 64 MG Delay Rel.Tablet 128 MG PO (05:54)
[2022-06-16] MEDS: Tolterodine Tartrate 2 MG CAP.SA PO (05:54)
[2022-06-16 06:55] LABS: Bedside Glucose 133 mg/dL (74-106)
[2022-06-16 07:52] LABS: Hematocrit 27.8 % (40-54); Hemoglobin 8.6 g/dL (13.0-16.5)
[2022-06-16] MEDS: glipiZIDE 5 MG Tablet PO (08:27)
[2022-06-16] MEDS: metFORMIN HCl 1,000 MG Tablet 1000 MG PO ×2 (08:27→17:30)
[2022-06-16] MEDS: Celecoxib 200 MG Capsule PO (08:27)
[2022-06-16] MEDS: Multivitamins,Therapeutic Tablet 1 TABLET PO (08:27)
[2022-06-16] MEDS: Menthol/Lanolin/Calamine/Znox 113 GM Tube 1 APPLIC TOPICAL ×2 (10:17→21:13)
[2022-06-16] MEDS: Nystatin Powder 15gm Bottle 1 APPLIC TOPICAL ×2 (10:17→21:12)
[2022-06-16 14:00] VITALS: BP 135/65; PULSE 90; RESP 18; TEMP 36.3; O2SAT 95
[2022-06-16] MEDS: MELATONIN 3 MG TABLET PO (21:08)
[2022-06-17 06:41] LABS: Bedside Glucose 127 mg/dL (74-106)
[2022-06-17] MEDS: Senna/Docusate Sodium 1 Tablet 2 TABLET PO ×2 (06:44→18:09)
[2022-06-17] MEDS: Acetaminophen 500 MG Tablet 1000 MG PO ×3 (06:45→20:06)
[2022-06-17] MEDS: Ascorbic Acid 500 MG Tablet 1000 MG PO ×2 (06:45→18:10)
[2022-06-17] MEDS: Magnesium Chloride 64 MG Delay Rel.Tablet 128 MG PO (06:45)
[2022-06-17] MEDS: amLODIPine 5 MG Tablet PO (06:46)
[2022-06-17] MEDS: Cholecalciferol (VIT D3) 25 MCG TABLET (1,000 UNITS) PO (06:46)
[2022-06-17] MEDS: Lisinopril 20 MG Tablet PO (06:47)
[2022-06-17] MEDS: Tolterodine Tartrate 2 MG CAP.SA PO (06:47)
[2022-06-17] MEDS: Iron Polysaccharide Complex 150 MG CAPSULE PO (06:47)
[2022-06-17] MEDS: Loratadine 10 MG Tablet PO (06:47)
[2022-06-17] MEDS: Levothyroxine 100 MCG Tablet 200 MCG PO (06:48)
[2022-06-17 06:52] VITALS: BP 133/70; PULSE 89
[2022-06-17] MEDS: metFORMIN HCl 1,000 MG Tablet 1000 MG PO ×2 (09:00→18:10)
[2022-06-17] MEDS: Celecoxib 200 MG Capsule PO (09:00)
[2022-06-17] MEDS: Multivitamins,Therapeutic Tablet 1 TABLET PO (09:00)
[2022-06-17] MEDS: glipiZIDE 5 MG Tablet PO (09:00)
[2022-06-17] MEDS: Menthol/Lanolin/Calamine/Znox 113 GM Tube 1 APPLIC TOPICAL ×2 (09:01→20:09)
[2022-06-17] MEDS: Nystatin Powder 15gm Bottle 1 APPLIC TOPICAL ×2 (09:03→20:10)
--- NOTE | 2022-06-17 09:20 | NURSING ---
Embroidery Specialist Note; MDS Complete
--- NOTE | 2022-06-17 11:58 | CASEMGMT ---
Social Work BIMS () and PHQ-9 (09/09) completed for MDS assessment. Eugenia Hancock MSW INFORMATION DIRECTOR
--- NOTE | 2022-06-17 13:32 | NURSING ---
Chante educated on the COVID 19 Vaccine and he does not want to receive it.
[2022-06-17 14:00] VITALS: BP 128/57; PULSE 101; RESP 18; TEMP 36.2; O2SAT 93
[2022-06-17] MEDS: MELATONIN 3 MG TABLET PO (20:07)
[2022-06-17 22:41] VITALS: O2SAT 97
[2022-06-18] MEDS: Iron Polysaccharide Complex 150 MG CAPSULE PO (05:27)
[2022-06-18] MEDS: Lisinopril 20 MG Tablet PO (05:28)
[2022-06-18] MEDS: Cholecalciferol (VIT D3) 25 MCG TABLET (1,000 UNITS) PO (05:28)
[2022-06-18] MEDS: Levothyroxine 175 MCG Tablet PO (05:28)
[2022-06-18] MEDS: Ascorbic Acid 500 MG Tablet 1000 MG PO ×2 (05:28→18:04)
[2022-06-18] MEDS: Senna/Docusate Sodium 1 Tablet 2 TABLET PO (05:28)
[2022-06-18] MEDS: Tolterodine Tartrate 2 MG CAP.SA PO (05:28)
[2022-06-18] MEDS: amLODIPine 5 MG Tablet PO (05:29)
[2022-06-18] MEDS: Acetaminophen 500 MG Tablet 1000 MG PO ×3 (05:29→21:27)
[2022-06-18] MEDS: Magnesium Chloride 64 MG Delay Rel.Tablet 128 MG PO (05:29)
[2022-06-18] MEDS: Loratadine 10 MG Tablet PO (05:29)
[2022-06-18 05:43] LABS: Absolute Lymphocyte Count 1.92 X10^3/uL (0.83-4.51); Absolute Neutrophil Count 8.7 X10^3/uL (2.0-7.7); Basophil# 0.05 X10^3/uL; Basophil% 0.4 % (0-1); Eosinophil# 0.35 X10^3/uL; Hematocrit 29.2 % (40-54); Hemoglobin 9.1 g/dL (13.0-16.5); Lymphocyte # 1.92 X10^3/ul (0.83-4.51); Lymphocyte % 16.3 % (19-41); Mean Corp Hgb Conc 31.2 g/dL (32-36); Mean Corpuscular Hgb 28.6 pg (27.0-32.0); Mean Corpuscular Volume 91.8 fL (80-94); Mean Platelet Vol. 8.4 fl (6.2-12.0); Monocyte# 0.53 X10^3/uL; Monocyte% 4.5 % (0-10); NRBC Flagged by Analyzer 0 % (0-5); Neutrophil # 8.72 X10^3/uL (2.7-7.7); Neutrophil % 74.2 % (47-70); Platelet Count 448 K/mm3 (150-450); RBC Distribution Width CV 16.9 % (11.6-14.6); RBC Distribution Width SD 54.4 fl (35.1-43.9); Red Blood Count 3.18 M/mm3 (4.6-6.2); White Blood Count 11.8 K/mm3 (4.4-11.0)
[2022-06-18 06:05] LABS: Anion Gap 7 (5-15); BUN 16 mg/dL (7-18); BUN/Creat Ratio 24.1 RATIO (10-20); Calcium,Total 8.7 mg/dL (8.5-10.1); Chloride 105 mmol/L (98-107); Creatinine, Serum 0.66 mg/dL (0.70-1.30); EST Glomerular Filtration Rate 126 mL/min (>60); Est Glom Filt Rate - Afr Amer 153 mL/min (>60); Glucose 141 mg/dL (74-106); Potassium 3.8 mmol/L (3.5-5.1); Sodium Level 138 mmol/L (136-145)
[2022-06-18 06:36] LABS: Bedside Glucose 133 mg/dL (74-106)
[2022-06-18] MEDS: glipiZIDE 5 MG Tablet PO (08:17)
[2022-06-18] MEDS: Celecoxib 200 MG Capsule PO (08:17)
[2022-06-18] MEDS: Multivitamins,Therapeutic Tablet 1 TABLET PO (08:18)
[2022-06-18] MEDS: metFORMIN HCl 1,000 MG Tablet 1000 MG PO ×2 (08:18→18:04)
[2022-06-18] MEDS: Menthol/Lanolin/Calamine/Znox 113 GM Tube 1 APPLIC TOPICAL ×2 (09:52→21:25)
[2022-06-18] MEDS: Nystatin Powder 15gm Bottle 1 APPLIC TOPICAL ×2 (09:54→21:24)
[2022-06-18 09:55] VITALS: PULSE 102; RESP 18; O2SAT 96
[2022-06-18] MEDS: Tuberculin,Purif.prot.deriv. 50 TU/ML Vial 0.1 ML ID (10:13)
[2022-06-18 14:00] VITALS: BP 105/47; PULSE 102; RESP 16; TEMP 37.1; O2SAT 95
[2022-06-18] MEDS: MELATONIN 3 MG TABLET PO (21:27)
[2022-06-19] MEDS: Lisinopril 20 MG Tablet PO (06:12)
[2022-06-19] MEDS: Acetaminophen 500 MG Tablet 1000 MG PO ×3 (06:12→21:00)
[2022-06-19] MEDS: Senna/Docusate Sodium 1 Tablet 2 TABLET PO ×2 (06:12→17:28)
[2022-06-19] MEDS: Ascorbic Acid 500 MG Tablet 1000 MG PO ×2 (06:12→17:28)
[2022-06-19] MEDS: Loratadine 10 MG Tablet PO (06:12)
[2022-06-19] MEDS: Magnesium Chloride 64 MG Delay Rel.Tablet 128 MG PO (06:12)
[2022-06-19] MEDS: amLODIPine 5 MG Tablet PO (06:12)
[2022-06-19] MEDS: Cholecalciferol (VIT D3) 25 MCG TABLET (1,000 UNITS) PO (06:12)
[2022-06-19] MEDS: Levothyroxine 100 MCG Tablet 200 MCG PO (06:12)
[2022-06-19] MEDS: Iron Polysaccharide Complex 150 MG CAPSULE PO (06:13)
[2022-06-19] MEDS: Tolterodine Tartrate 2 MG CAP.SA PO (06:17)
[2022-06-19 06:36] LABS: Bedside Glucose 126 mg/dL (74-106)
[2022-06-19] MEDS: metFORMIN HCl 1,000 MG Tablet 1000 MG PO ×2 (08:01→17:27)
[2022-06-19] MEDS: glipiZIDE 5 MG Tablet PO (08:02)
[2022-06-19] MEDS: Multivitamins,Therapeutic Tablet 1 TABLET PO (08:02)
[2022-06-19] MEDS: Celecoxib 200 MG Capsule PO (08:02)
[2022-06-19] MEDS: Menthol/Lanolin/Calamine/Znox 113 GM Tube 1 APPLIC TOPICAL ×2 (10:13→20:58)
[2022-06-19] MEDS: Nystatin Powder 15gm Bottle 1 APPLIC TOPICAL ×2 (10:13→20:59)
--- NOTE | 2022-06-19 10:59 | CASEMGMT ---
Social Work IDT met with patient and for care plan meeting. Discussed patient's progress in PT/OT/SN. Educated to Medicare benefit. Pts goal is to return home at [facility]. clarified she will not be assisting physically and pt will need to be independent. Offered to set DC date when pt/ are ready with HHC vs OP therapy and any DME needs. Offered therapy training. Pt ready to DC 06/22 and requesting outpatient PT/OT at [facility] in [place]. Requesting FWW as well. to transport. SW faxed referral to [facility]. Referral made via [facility] to [facility] [place] [place] for FWW. Plan: DC home with 06/22, [facility] PT/OT, FWW Eugenia Hacnock, JAZZY TYLER
[2022-06-19 14:00] VITALS: BP 137/63; PULSE 89; RESP 18; TEMP 36.2; O2SAT 96
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
[2022-06-19 20:32] VITALS: RESP 18
[2022-06-19] MEDS: MELATONIN 3 MG TABLET PO (21:00)
[2022-06-20] MEDS: Magnesium Chloride 64 MG Delay Rel.Tablet 128 MG PO (05:29)
[2022-06-20] MEDS: Tolterodine Tartrate 2 MG CAP.SA PO (05:30)
[2022-06-20] MEDS: Senna/Docusate Sodium 1 Tablet 2 TABLET PO ×2 (05:30→17:20)
[2022-06-20] MEDS: Levothyroxine 175 MCG Tablet PO (05:30)
[2022-06-20] MEDS: Loratadine 10 MG Tablet PO (05:31)
[2022-06-20] MEDS: amLODIPine 5 MG Tablet PO (05:31)
[2022-06-20] MEDS: Iron Polysaccharide Complex 150 MG CAPSULE PO (05:31)
[2022-06-20] MEDS: Acetaminophen 500 MG Tablet 1000 MG PO ×3 (05:32→21:21)
[2022-06-20] MEDS: Lisinopril 20 MG Tablet PO (05:32)
[2022-06-20] MEDS: Cholecalciferol (VIT D3) 25 MCG TABLET (1,000 UNITS) PO (05:33)
[2022-06-20] MEDS: Ascorbic Acid 500 MG Tablet 1000 MG PO ×2 (05:33→17:20)
[2022-06-20 05:37] VITALS: BP 125/62; PULSE 87; RESP 16
[2022-06-20 06:56] LABS: Bedside Glucose 123 mg/dL (74-106)
[2022-06-20] MEDS: glipiZIDE 5 MG Tablet PO (08:27)
[2022-06-20] MEDS: metFORMIN HCl 1,000 MG Tablet 1000 MG PO ×2 (08:27→17:20)
[2022-06-20] MEDS: Celecoxib 200 MG Capsule PO (08:27)
[2022-06-20] MEDS: Multivitamins,Therapeutic Tablet 1 TABLET PO (08:28)
[2022-06-20] MEDS: Nystatin Powder 15gm Bottle 1 APPLIC TOPICAL ×2 (10:02→21:22)
[2022-06-20] MEDS: Menthol/Lanolin/Calamine/Znox 113 GM Tube 1 APPLIC TOPICAL ×2 (10:02→21:22)
[2022-06-20 16:07] VITALS: BP 128/61; PULSE 91; RESP 18; TEMP 36.7; O2SAT 95
[2022-06-20] MEDS: MELATONIN 3 MG TABLET PO (21:21)
[2022-06-21] MEDS: amLODIPine 5 MG Tablet PO (04:28)
[2022-06-21] MEDS: Iron Polysaccharide Complex 150 MG CAPSULE PO (04:28)
[2022-06-21] MEDS: Levothyroxine 100 MCG Tablet 200 MCG PO (04:29)
[2022-06-21] MEDS: Ascorbic Acid 500 MG Tablet 1000 MG PO ×2 (04:30→17:20)
[2022-06-21] MEDS: Senna/Docusate Sodium 1 Tablet 2 TABLET PO (04:30)
[2022-06-21] MEDS: Cholecalciferol (VIT D3) 25 MCG TABLET (1,000 UNITS) PO (04:30)
[2022-06-21] MEDS: Tolterodine Tartrate 2 MG CAP.SA PO (04:31)
[2022-06-21] MEDS: Lisinopril 20 MG Tablet PO (04:31)
[2022-06-21] MEDS: Loratadine 10 MG Tablet PO (04:32)
[2022-06-21] MEDS: Magnesium Chloride 64 MG Delay Rel.Tablet 128 MG PO (04:32)
[2022-06-21] MEDS: Acetaminophen 500 MG Tablet 1000 MG PO ×3 (04:33→21:29)
[2022-06-21 06:45] LABS: Bedside Glucose 141 mg/dL (74-106)
[2022-06-21] MEDS: Multivitamins,Therapeutic Tablet 1 TABLET PO (08:41)
[2022-06-21] MEDS: glipiZIDE 5 MG Tablet PO (08:42)
[2022-06-21] MEDS: Celecoxib 200 MG Capsule PO (08:42)
[2022-06-21] MEDS: metFORMIN HCl 1,000 MG Tablet 1000 MG PO ×2 (08:42→17:21)
--- NOTE | 2022-06-21 10:26 | MDS.RN ---
Information for the mds was obtained from review of the clinical record, interview of resident, staff, and direct observation of resident's care.
--- NOTE | 2022-06-21 12:04 | CASEMGMT ---
Social Work BIMS () and PHQ-9 () completed for MDS assessment. Eugenia Hancock MSW WINDOW/DISTRIBUTION CLERK
[2022-06-21 14:00] VITALS: BP 141/69; PULSE 92; RESP 18; TEMP 36.6; O2SAT 96
[2022-06-21] MEDS: Nystatin Powder 15gm Bottle 1 APPLIC TOPICAL (21:27)
[2022-06-21] MEDS: Menthol/Lanolin/Calamine/Znox 113 GM Tube 1 APPLIC TOPICAL (21:27)
[2022-06-21] MEDS: MELATONIN 3 MG TABLET PO (21:29)
[2022-06-22] MEDS: Iron Polysaccharide Complex 150 MG CAPSULE PO (05:46)
[2022-06-22] MEDS: Magnesium Chloride 64 MG Delay Rel.Tablet 128 MG PO (05:47)
[2022-06-22] MEDS: Senna/Docusate Sodium 1 Tablet 2 TABLET PO (05:47)
[2022-06-22] MEDS: Tolterodine Tartrate 2 MG CAP.SA PO (05:48)
[2022-06-22] MEDS: Acetaminophen 500 MG Tablet 1000 MG PO (05:48)
[2022-06-22] MEDS: Ascorbic Acid 500 MG Tablet 1000 MG PO (05:49)
[2022-06-22] MEDS: Lisinopril 20 MG Tablet PO (05:49)
[2022-06-22] MEDS: amLODIPine 5 MG Tablet PO (05:49)
[2022-06-22] MEDS: Levothyroxine 175 MCG Tablet PO (05:51)
[2022-06-22] MEDS: Cholecalciferol (VIT D3) 25 MCG TABLET (1,000 UNITS) PO (05:51)
[2022-06-22] MEDS: Loratadine 10 MG Tablet PO (05:51)
[2022-06-22 05:55] VITALS: BP 133/59; PULSE 84
[2022-06-22 06:40] LABS: Bedside Glucose 126 mg/dL (74-106)
[2022-06-22] MEDS: metFORMIN HCl 1,000 MG Tablet 1000 MG PO (08:29)
[2022-06-22] MEDS: Celecoxib 200 MG Capsule PO (08:29)
[2022-06-22] MEDS: glipiZIDE 5 MG Tablet PO (08:30)
[2022-06-22] MEDS: Multivitamins,Therapeutic Tablet 1 TABLET PO (08:30)
[2022-06-22 08:33] VITALS: PULSE 103; O2SAT 96
[2022-06-22 11:49] VITALS: BP 113/65; PULSE 98; RESP 18; TEMP 36.6; O2SAT 96
== END 2022-06-22 11:15 | disposition home or self-care (01) | DRG 561 ==
PROVIDERS: Admitting Provider Family Medicine Geriatric Medicine; PCP Family Medicine; Visit Provider Family Medicine Geriatric Medicine
DX: S22.49XD Multiple fractures of ribs, unspecified side, subsequent encounter for fracture with routine healing (principal); B35.4 Tinea corporis; E11.9 Type 2 diabetes mellitus without complications; E03.9 Hypothyroidism, unspecified; E55.9 Vitamin D deficiency, unspecified; M17.0 Bilateral primary osteoarthritis of knee; M16.0 Bilateral primary osteoarthritis of hip; I89.0 Lymphedema, not elsewhere classified; I10 Essential (primary) hypertension; Z87.891 Personal history of nicotine dependence; N32.81 Overactive bladder; Z79.84 Long term (current) use of oral hypoglycemic drugs; V43.93 Unspecified car occupant injured in collision with pick-up truck in traffic accident; S32.039D Unspecified fracture of third lumbar vertebra, subsequent encounter for fracture with routine healing; S32.049D Unspecified fracture of fourth lumbar vertebra, subsequent encounter for fracture with routine healing; S30.1XXD Contusion of abdominal wall, subsequent encounter; Z79.890 Hormone replacement therapy; Z79.899 Other long term (current) drug therapy
CPT/HCPCS: 36415; 72110; 80048; 82962; 85014; 85018; 85025; 87426; 97110; 97116; 97162; 97166; 97530; 97535; 97802; 97803

== ENCOUNTER → 2022-06-14 | Outpatient (CLI) | payer MEDICARE, BC, SELFPAY ==
--- NOTE | 2022-06-14 14:06 | MRI_ITS ---
STUDY: MRI LUMBAR SPINE WITHOUT CONTRAST REASON FOR EXAM: Male, 66 years old. BACK PAIN TECHNIQUE: Standardized fat and water weighted pulse sequences were obtained in the sagittal and axial planes. COMPARISON: Lumbar spine radiographs 06/13/2022. FINDINGS: T10-T11 and T11-T12: Normal endplates. Mild disc space height narrowing. Normal central canal and bilateral intervertebral neural foramina. T12-L1: Modic type II degenerative vertebral marrow infiltration underneath the vertebral endplates. Pronounced disc space height narrowing. Mild asymmetric degenerative retrolisthesis of T12 on L1 causing prominent left ventral extradural defect in addition to suspicious small left posterior caudal disc protrusion. Mild left degenerative facet arthropathy. Normal right facet joint. Mild central canal stenosis with an AP canal diameter of 9 mm. Pronounced stenosis of the left lateral recess. Normal right lateral recess. Mild stenosis of the bilateral intervertebral neural foramina. Normal lumbar lordosis. There is no substantial scoliosis. Normal conus medullaris that terminates at the mid T12 vertebral body level. L1-2: Normal endplates. Mild disc space narrowing. Suspicious small right posterior caudal disc extrusion causing right lateral recess stenosis. Pronounced central canal stenosis with an AP canal diameter of 5.5 mm. Normal left lateral recess. Mild stenosis of the left intervertebral neural foramen. Normal right intervertebral neural foramen. L2-3: Normal endplates. Moderate disc space narrowing. Prominent ventral extradural defect due to posterior annular bulging disc. Normal facet joints. Pronounced central canal stenosis with an AP canal diameter of 4.7 mm. Normal bilateral lateral recesses. Mild stenosis of the left intervertebral neural foramen due to osteophytic encroachment from the left L3 superior articular facet. Normal right intervertebral neural foramen. L3-4: Normal endplates. Moderate disc space height narrowing. Prominent ventral extradural defect due to posterior bulging annulus. Normal facet joints. Pronounced central canal stenosis with an AP canal diameter of 3.7 mm. Normal bilateral lateral recesses. Mild stenosis of the bilateral intervertebral neural foramina. L4-5: Normal endplates. Moderate disc space height narrowing. Prominent ventral extradural defect due to posterior bulging annulus. Mild asymmetric degenerative facet arthropathy. Prominent dorsal epidural lipomatosis. Pronounced central canal stenosis with an AP canal diameter of 3 mm. Normal bilateral lateral recesses. Moderate stenosis of the right intervertebral neural foramen with suspicious osteophytic encroachment comment from the right L5 superior to the facet. Normal left intervertebral neural foramen. L5-S1: Normal endplates. Mild disc space narrowing. Normal disc hydration and morphology. Pronounced right degenerative facet arthropathy with tubular bone causing severe stenosis in the right intervertebral neural foramen. Normal left facet joint. Normal left intervertebral neural foramen. No central canal. Normal visualized sacral ala. Normal visualized paraspinous soft tissue structures. MRI/Spine Lumbar (Routine) IMPRESSION: 1. Severe stenosis of the right L5-S1 intervertebral neural foramen due to tubular bone occupying the right intervertebral neural foramen. This is presumably from pronounced right L5-S1 degenerative facet arthropathy. 2. Mild asymmetric degenerative retrolisthesis of T12 on L1 causing prominent left central extruded defect with a suspicious small left posterior cortical disc protrusion. Displacement of the left L1 nerve root sleeve is likely present. 3. Suspicious small right L1-L2 posterior column disc extrusion causing right lateral recess stenosis and probable displacement of the right L2 nerve root sleeve. Additionally, pronounced central canal stenosis with an AP canal diameter of 5.5 mm. 4. Pronounced central canal stenosis at L2-L3 disc space level with an AP canal diameter 0.7 mm and prominent posterior bulging annulus. 5. Pronounced central canal stenosis at L3-L4 disc space level with an AP canal diameter of 3.7 mm and prominent posterior bulging annulus. 6. Severe central canal stenosis at L4-L5 disc space level with an AP canal diameter of 3 mm, moderate stenosis of the right intervertebral neural foramen and prominent posterior bulging annulus. Electronically Signed: Cedric Lino MD at 16:04 EST ,
== END | disposition home or self-care (01) ==
LOC: MRI 14:03
PROVIDERS: PCP Family Medicine; Visit Provider Family Medicine Geriatric Medicine
DX: M54.9 Dorsalgia, unspecified (principal)
CPT/HCPCS: 72148

== ENCOUNTER 2023-02-12 15:30 | Outpatient (RCR) | payer MEDICARE, BC, SELFPAY ==
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
--- NOTE | 2023-02-13 07:32 | HP.PTDCSUM_ITS ---
Discharge Summary D/C summary: It has been my pleasure to treat SAUL STEELE II referred by Dr. Akiko Lion MD, with the diagnosis of L shoulder pain for a total of 7 visit(s). Discharge Date: 02/12/23 Please see the following information for a summary of their discharge status. Subjective Subjective: Pt reports not much change in his L shoulder pain and at times it is worse with his exercises. Pt. reports doing okay right now. He has changed to a new pain cream with some success. Pt. is scheduling appt. to see physician. Pain L shoulder: Pain Intensity (Out of 10): 1 Objective Objective/Function: ROM: PROM: L shoulder: flexion 140deg, abd 135deg, ER at side 30deg IR at 30deg 30deg. AROM: L shoulder: fleixon 110deg, abd 120deg. functional IR L5, functional ER C1. Pt. has pain with all active mobility. Pt. reports grinding in his shoulder throughout. MMT: LUE: wrist 5/5 throughout; elbow: 5/5 throughout. shoulder: flexion 4/5 increase, abd 4/5 increase NW, ER 4/5 NE, IR 5-/5 NE. ext 5/5 NE. Most likely he has degenerative change resulting in L shoulder OA with some degenerative changes to his RT cuff. At this point in time I would suggest following back up with his physician with possible need to see orthopedics. I did talk to him about continuing to keep his arm mobile to reduce risk for adhesive capsulitis. Pt. consents. Goals Goal 1:: LTG: pt. to be I with HEP. Goal Progress: Goal Met Goal 2:: STG: Pt. to be able to sleep throughout the night without increase in symptoms. Goal Progress: Goal Met Goal 3:: LTG: Pt. to have full L shoulder AROM without increase in symptoms. Goal Progress: Progressing Goal 4:: STG: Pt. to have increased AAROM of L shoulder to full. Goal Progress: Progressing Goal 5:: LTG: pt. to have 5/5 strength of L shoulder. Goal Progress: Progressing Goal 6:: LTG: pt to complete all commutator v ring assembler and ADLs with out increase in L shoulder pain. Goal Progress: Not Progressing Plan Plan: DC back to physician D/C Information Discharge Comments: Pt. was treated for his L shoulder pain. Pt. most likely has marked shoulder OA with some RTC involvement. He was treated with ROM and some strengthening. Most activities seemed to increase his symptoms. At this point in time I would recommend follow up with physician to determine best course of actition. d/c sentence: If there are questions or concerns regarding this patient's physical therapy, please feel free to call me at [phone]. Thank you for the referral of this patient. Sincerely, Colt Monroyos, DPT Balance/Gait/Functional tests Balance/Special Test Scores Quick DASH Score: [phone]
== END 2023-02-12 19:00 | disposition home or self-care (01) ==
LOC: PT 15:30
PROVIDERS: PCP Family Medicine; Referring Provider Family Medicine; Visit Provider Family Medicine
DX: M25.512 Pain in left shoulder (principal)
CPT/HCPCS: 97035; 97110; 97140; 97161; 97164

== ENCOUNTER → 2023-05-30 | Outpatient (CLI) | payer MEDICARE, BC, SELFPAY | END | disposition home or self-care (01) | LOC: SL 20:24 | PROVIDERS: PCP Family Medicine; Referring Provider Nurse Practitioner Acute Care; Visit Provider Nurse Practitioner Acute Care | DX: G47.33 Obstructive sleep apnea (adult) (pediatric) (principal) | CPT/HCPCS: 95810 ==

== ENCOUNTER 2023-07-15 07:35 | Day surgery (SDC) | payer MEDICARE, SELFPAY ==
[2023-06-11 15:10] LABS: Absolute Neutrophil Count 5.3 X10^3/uL (2.0-7.7); Basophil# 0.05 X10^3/uL; Basophil% 0.6 % (0-1); Eosinophils% 2.5 % (0-5); Hematocrit 45.8 % (40-54); Hemoglobin 14.3 g/dL (13.0-16.5); Lymphocyte % 24.5 % (19-41); Mean Corp Hgb Conc 31.2 g/dL (32-36); Mean Corpuscular Hgb 29.3 pg (27.0-32.0); Mean Corpuscular Volume 93.9 fL (80-94); Mean Platelet Vol. 9.1 fl (6.2-12.0); Monocyte# 0.63 X10^3/uL; Monocyte% 7.7 % (0-10); NRBC Flagged by Analyzer 0 % (0-5); Neutrophil # 5.25 X10^3/uL (2.7-7.7); Neutrophil % 64.3 % (47-70); Platelet Count 289 K/mm3 (150-450); RBC Distribution Width CV 15.9 % (11.6-14.6); RBC Distribution Width SD 54.4 fl (35.1-43.9); Red Blood Count 4.88 M/mm3 (4.6-6.2); White Blood Count 8.2 K/mm3 (4.4-11.0)
--- NOTE | 2023-06-11 15:15 | RAD_ITS ---
INDICATION: SOB, Prev infiltrate -- for heart cath EXAMINATION/TECHNIQUE: X-RAY - XR Chest 2 Views COMPARISON: None. FINDINGS: LINES/DEVICES: None. LUNGS: Hyperinflation without consolidation, vascular congestion or pleural effusion. MEDIASTINUM AND CARDIOVASCULAR STRUCTURES: Cardiac silhouette within upper normal limits. BONES AND SOFT TISSUES: No acute findings. Right shoulder prosthesis. Orthopedic screws left humeral head. RAD/Chest PA and Lateral IMPRESSION: No radiographic evidence of acute cardiopulmonary disease. Electronically Signed: Jared Rocha MD at 0:05 EST ,
[2023-06-11 16:09] LABS: Anion Gap 5 (5-15); BUN 18 mg/dL (7-18); BUN/Creat Ratio 18.9 RATIO (10-20); Calcium,Total 9.2 mg/dL (8.5-10.1); Chloride 104 mmol/L (98-107); Creatinine, Serum 0.95 mg/dL (0.70-1.30); EST Glomerular Filtration Rate 83 mL/min (>60); Est Glom Filt Rate - Afr Amer 101 mL/min (>60); Glucose 154 mg/dL (74-106); Potassium 5.1 mmol/L (3.5-5.1); Sodium Level 139 mmol/L (136-145)
[2023-06-17 08:17] VITALS: BMI 48.4
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
[2023-07-10 16:24] LABS: Absolute Lymphocyte Count 1.96 X10^3/uL (0.83-4.51); Absolute Neutrophil Count 7.3 X10^3/uL (2.0-7.7); Basophil# 0.08 X10^3/uL; Basophil% 0.8 % (0-1); Eosinophil# 0.23 X10^3/uL; Eosinophils% 2.2 % (0-5); Hematocrit 47.7 % (40-54); Hemoglobin 14.8 g/dL (13.0-16.5); Lymphocyte # 1.96 X10^3/ul (0.83-4.51); Mean Corpuscular Hgb 28.7 pg (27.0-32.0); Mean Corpuscular Volume 92.6 fL (80-94); Mean Platelet Vol. 9.6 fl (6.2-12.0); Monocyte# 0.76 X10^3/uL; Monocyte% 7.4 % (0-10); NRBC Flagged by Analyzer 0 % (0-5); Neutrophil # 7.25 X10^3/uL (2.7-7.7); Neutrophil % 70.3 % (47-70); Platelet Count 314 K/mm3 (150-450); RBC Distribution Width CV 14.5 % (11.6-14.6); RBC Distribution Width SD 49.3 fl (35.1-43.9); Red Blood Count 5.15 M/mm3 (4.6-6.2); White Blood Count 10.3 K/mm3 (4.4-11.0)
[2023-07-10 17:28] LABS: Anion Gap 5 (5-15); BUN 19 mg/dL (7-18); BUN/Creat Ratio 19.3 RATIO (10-20); Calcium,Total 9.5 mg/dL (8.5-10.1); Chloride 106 mmol/L (98-107); Creatinine, Serum 0.99 mg/dL (0.70-1.30); EST Glomerular Filtration Rate 80 mL/min (>60); Est Glom Filt Rate - Afr Amer 97 mL/min (>60); Estimated Creatinine Clearance 65.84 ml/min; Glucose 182 mg/dL (74-106); Potassium 4.7 mmol/L (3.5-5.1); Sodium Level 141 mmol/L (136-145)
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
--- NOTE | 2023-07-15 09:35 | CL.D_ITS ---
Patient Name: SAUL STEELE II Study Date: 07/15/2023 Performing: Kaylan Pham MD Ht: 67 inches 170.18 cm : 1955 Wt: 309 lbs 140.16 kg Age: 67 Gender: male BSA: 2.43 PROCEDURE(S) PERFORMED [id number])[facility] CLINICAL PROFILE AND INDICATIONS Indications: Cardiomyopathy Heart Failure: NYHA Class: 2, Newly Diagnosed: Yes, Heart Failure Type: Systolic CONCLUSIONS No angiographic CAD RECOMMENDATIONS Risk factor modification DESCRIPTION OF PROCEDURE The patient arrived to the procedure lab. The risks and benefits of the procedure as well as a full description of our services here and current unavailability of surgical backup were fully explained to the patient and/or their significant other prior to the catheterization. The Timeout was completed, verifying the correct patient and procedure. The patient's procedural site was prepped and draped in the usual fashion. Local anesthetic was given subcutaneously to right radial region with Lidocaine 2%. Using a modified Seldinger technique, arterial access was obtained via the right radial artery, a 6Fr sheath was inserted. Left Coronary Artery selective angiography was performed in multiple views using a 5 Fr. 4.0 [place] catheter. Right Coronary Artery selective angiography was then performed in multiple views using a 5 Fr. 4.0 [place] catheter. Right Coronary Artery selective angiography was then performed in multiple views using a 5 Fr. JR 4 catheter.The arterial sheath was pulled and a TR Band was applied for hemostasis 10cc air CORONARY ANGIOGRAPHY DOMINANCE: Right Dominant LEFT MAIN: Angiographically normal LEFT ANTERIOR DESCENDING ARTERY: Angiographically normal CIRCUMFLEX ARTERY: Angiographically normal RIGHT CORONARY ARTERY: Angiographically normal COMPLICATIONS No Complications PROCEDURE MEDICATIONS Versed 1 mg IV Fentanyl 50 mcg IV Oxygen: 2 L/min via nasal cannula Aspirin (325mg) 1 Tabs PO @ 07/15/2023 08:43:30 Heparin given IA 07/15/2023 09:13:12 Verapamil 2.5mg, Ntg 200mcgs, 2000 units of Heparin given IA 07/15/2023 09:13:12 IV Fluids: .9 NaCl IV started @ 75 ml/hr 07/15/2023 09:29:23 SUMMARY OF HEMODYNAMIC DATA Time AIR REST ECG 08:00:31 AO 123/79 (97) SA 09:23:14 Signed By Kaylan Pham MD On 07/15/2023 09:34:39 Kaylan Pham MD
== END 2023-07-15 11:00 | disposition home or self-care (01) ==
PROVIDERS: PCP Family Medicine; Referring Provider Internal Medicine Cardiovascular Disease; Visit Provider Internal Medicine Cardiovascular Disease
DX: I11.0 Hypertensive heart disease with heart failure (principal); I50.22 Chronic systolic (congestive) heart failure; I42.9 Cardiomyopathy, unspecified; E11.9 Type 2 diabetes mellitus without complications; Z87.891 Personal history of nicotine dependence; I08.0 Rheumatic disorders of both mitral and aortic valves; R06.09 Other forms of dyspnea; Z79.899 Other long term (current) drug therapy; Z86.16 Personal history of COVID-19; R93.1 Abnormal findings on diagnostic imaging of heart and coronary circulation
CPT/HCPCS: 36415; 71046; 80048; 85025; 93454; 99152; 99153; J7040; Q9967; C1769; C1894

== ENCOUNTER → 2023-10-13 | Outpatient (CLI) | payer MEDICARE, SELFPAY ==
--- NOTE | 2023-10-13 14:07 | ECHOCS_ITS ---
Reason For Study: SERA Procedure This was a 2D Doppler, Color Flow transthoracic echocardiogram. Technically difficult study due to patient positioning and body habitus. Patient scanned sitting upright for SOB. Exam performed in department. Left Ventricle Mildly dilated left ventricle. The left ventricular ejection fraction is 30 %. Stage 1 diastolic dysfunction. Right Ventricle Normal right ventricle. Atria The left atrium is moderately enlarged. Normal right atrium. Mitral Valve Trivial mitral valve insufficiency. Tricuspid Valve Unable to estimate RV systolic pressure due to inadequate jet, pulmonary artery pressure probably normal. Aortic Valve The aortic valve is not well visualized in the short axis view. Mild aortic valve stenosis by Doppler criteria. Mean peak gradient 9.8 mmHg. Pulmonic Valve The pulmonic valve is not well visualized. Great Vessels Normal sized aortic root. Pericardium/Pleural No pericardial effusion. Medication 22 gauge I.V. with prn adaptor inserted into right arm. Diluted definity 3ml given slow IV push to enhance endocardial definition. MMode/2D Measurements & Calculations LVIDd: 5.8 cm IVSd: 1.3 cm LVOT diam: 2.1 cm LVIDs: 5.2 cm LVPWd: 1.3 cm FS: 10.4 % LVOT area: 3.6 cm2 Ao root diam: 3.5 cm LAV(MOD-bp): 87.4 ml LVAd ap4: 47.8 cm2 ACS: 1.4 cm LAV(MOD-bp) Indexed: 35.6 ml/m2 LVLd ap4: 9.4 cm LA dimension: 4.4 cm LAV(MOD-sp2): 95.4 ml EDV(MOD-sp4): 198.5 ml LAV(MOD-sp4): 81.0 ml EDV(sp4-el): 205.9 ml LVAs ap4: 41.3 cm2 LVLs ap4: 9.2 cm ESV(MOD-sp4): 156.2 ml ESV(sp4-el): 158.0 ml EF(MOD-sp4): 21.3 % EF(sp4-el): 23.3 % SV(MOD-sp4): 42.2 ml SV(sp4-el): 47.9 ml LA A4 area: 25.2 cm2 RA A4 area: 19.3 cm2 TAPSE: 3.0 cm Time Measurements MV dec time: 0.22 sec Doppler Measurements & Calculations MV E max edin: 85.1 cm/sec Lat Peak E' Edin: 8.1 cm/sec Med Peak E' Edin: 6.2 cm/sec MV A max edin: 129.5 cm/sec E/E' lat: 10.5 E/E' med: 13.8 MV E/A: 0.66 MV V2 max: 174.1 cm/sec MV P1/2t max edin: 137.5 cm/sec Ao V2 max: 215.3 cm/sec MV max P.1 mmHg MV P1/2t: 94.9 msec Ao max P.6 mmHg MV V2 mean: 100.0 cm/sec MV dec slope: 424.2 cm/sec2 Ao V2 mean: 145.2 cm/sec MV mean P.9 mmHg MVA(P1/2t): 2.3 cm2 Ao mean P.8 mmHg MV V2 VTI: 33.8 cm Ao V2 VTI: 43.4 cm MVA(VTI): 1.8 cm2 AV (velocity ratio): 0.40 FAHEEM(I,D): 1.4 cm2 FAHEEM(V,D): 1.4 cm2 LV V1 max: 83.9 cm/sec SV(LVOT): 62.0 ml PA V2 max: 93.6 cm/sec LV V1 max P.8 mmHg LV V1 mean P.7 mmHg LV V1 mean: 59.9 cm/sec LV V1 VTI: 17.3 cm ECHO/Echo Complete W/ Contrast Interpretation Summary Technically difficult study. . Mildly dilated left ventricle. Moderate to severe global hypokinesis except of the basal lateral and posterior wall. The left ventricular ejection fraction is 25-30 %. Stage 1 diastolic dysfunction. The left atrium is moderately enlarged. Mild aortic valve stenosis by Doppler criteria. Mean peak gradient 9.8 mmHg. Ordering Physician: Kaylan Pham Referring Physician: Akiko Lion Performed By: Mal Fuller RCS
== END | disposition home or self-care (01) ==
LOC: CVS 14:06
PROVIDERS: PCP Family Medicine; Referring Provider Internal Medicine Cardiovascular Disease; Visit Provider Internal Medicine Cardiovascular Disease
DX: G47.33 Obstructive sleep apnea (adult) (pediatric) (principal)
CPT/HCPCS: 93306; Q9957; A4216; C8929

== ENCOUNTER → 2024-10-25 | Outpatient (CLI) | payer MEDICARE, SELFPAY ==
--- NOTE | 2024-10-25 10:17 | ECHOCS_ITS ---
Reason For Study Reason For Study: Procedure This was a 2D Doppler, Color Flow transthoracic echocardiogram. The study was technically difficult. Contrast injection was performed. Exam performed in department. Left Ventricle Normal LV size. Mild concentric left ventricular hypertrophy. Severe generalized LV hypokinesis. Estimated LVEF 30%. Stage I diastolic dysfunction. Right Ventricle Normal right ventricle. Atria The left and right atria are normal. Mitral Valve Trivial mitral valve insufficiency. Tricuspid Valve Trivial tricuspid valve insufficiency. Unable to estimate RV systolic pressure due to insufficient tricuspid regurgitant envelope. Aortic Valve The aortic valve is not well visualized in the short axis view. Mild aortic valve stenosis. Mean peak gradient 11 mmHg. Pulmonic Valve The pulmonic valve is not well visualized. Great Vessels Normal sized aortic root. Pericardium/Pleural No pericardial effusion. Medication 22 gauge I.V. with prn adaptor inserted into right arm. Diluted definity 2ml given slow IV push to enhance endocardial definition. MMode/2D Measurements & Calculations LVIDd: 5.1 cm IVSd: 1.5 cm LVOT diam: 2.0 cm LVIDs: 4.1 cm LVPWd: 1.5 cm FS: 18.8 % LVOT area: 3.2 cm2 Ao root diam: 3.4 cm LAV(MOD-bp): 63.4 ml LVAd ap4: 51.2 cm2 LAV(MOD-bp) Indexed: 26.8 ml/m2 LVLd ap4: 10.1 cm LAV(MOD-sp2): 54.5 ml EDV(MOD-sp4): 211.0 ml LAV(MOD-sp4): 71.2 ml EDV(sp4-el): 220.7 ml LVAs ap4: 34.6 cm2 LVLs ap4: 9.0 cm ESV(MOD-sp4): 109.1 ml ESV(sp4-el): 112.7 ml EF(MOD-sp4): 48.3 % EF(sp4-el): 48.9 % SV(MOD-sp4): 101.9 ml SV(sp4-el): 108.0 ml LA A4 area: 22.3 cm2 SI(MOD-sp4): 43.0 ml/m2 LA dimension(2D): 3.8 cm RA A4 area: 13.9 cm2 Time Measurements MV dec time: 0.12 sec Doppler Measurements & Calculations MV E max edin: 65.4 cm/sec Lat Peak E' Edin: 5.6 cm/sec Med Peak E' Edin: 4.5 cm/sec MV A max edin: 128.1 cm/sec E/E' lat: 11.7 E/E' med: 14.5 MV E/A: 0.51 MV dec slope: 543.4 cm/sec2 Ao V2 max: 223.5 cm/sec LV V1 max: 135.4 cm/sec Ao max P.1 mmHg LV V1 max P.3 mmHg Ao V2 mean: 154.1 cm/sec LV V1 mean P.1 mmHg Ao mean P.1 mmHg LV V1 mean: 93.5 cm/sec Ao V2 VTI: 47.2 cm LV V1 VTI: 28.6 cm AV (velocity ratio): 0.61 FAHEEM(I,D): 2.0 cm2 FAHEEM(V,D): 2.0 cm2 SV(LVOT): 92.2 ml ECHO/Echo Complete W/ Contrast Interpretation Summary Mild concentric left ventricular hypertrophy. Severe generalized LV hypokinesis. Estimated LVEF 30%. Stage I diastolic dysfun ction. Mild aortic valve stenosis. Mean peak gradient 11 mmHg. The study was technically difficult. Ordering Physician: Kaylan Pham Referring Physician: Kaylan Pham Performed By: Karina Smith RCS
== END | disposition home or self-care (01) ==
LOC: CVS 10:13
PROVIDERS: PCP Family Medicine; Referring Provider Internal Medicine Cardiovascular Disease; Visit Provider Internal Medicine Cardiovascular Disease
DX: I35.0 Nonrheumatic aortic (valve) stenosis (principal)
CPT/HCPCS: 93306; Q9957; A4216; C8929

== ENCOUNTER → 2025-01-26 | Outpatient (CLI) | payer MEDICARE, SELFPAY ==
--- NOTE | 2025-01-26 14:32 | VDLE_ITS ---
Reason For Study Reason For Study: BLE SWelling RIGHT LEFT GSV is normal. GSV is normal. CFV is compressible, spontaneous, phasic, competent CFV is compressible, spontaneous, phasic, competent, and demonstrates normal augmentation. and demonstrates normal augmentation. FV is compressible, spontaneous, phasic, competent FV is compressible, spontaneous, phasic, competent and demonstrates normal augmentation. and demonstrates normal augmentation. POP V is compressible, spontaneous, phasic, competent POP V is compressible, spontaneous, phasic, competent and demonstrates normal augmentation. and demonstrates normal augmentation. T/P Trunk is compressible. T/P Trunk is compressible. PTV is compressible. PTV is compressible. RT PerV is compressible. LT PerV is compressible. Procedure This is a venous duplex using B-mode, color flow and spectral Doppler. Exam performed in department. The exam was diagnostic. The study was technically difficult due to body habitus. A preliminary report was called and/or faxed to [facility]. VL/Venous Duplex US - Lul Extrem Interpretation Summary Deep veins of the bilateral lower extremities are patent and compressible segme ntally. There is no evidence of bilateral lower extremity deep vein thrombosis. The bilateral great saphenous veins appea r patent and compressible segmentally. Ordering Physician: Vick Gallegos Referring Physician: Akiko Lion Performed By: Esteban Mead, RVT
== END | disposition home or self-care (01) ==
PROVIDERS: PCP Family Medicine; Referring Provider Student in an Organized Health Care Education/Training Program; Visit Provider Student in an Organized Health Care Education/Training Program
DX: R60.0 Localized edema (principal); R79.89 Other specified abnormal findings of blood chemistry; M79.89 Other specified soft tissue disorders
CPT/HCPCS: 93970

== ENCOUNTER → 2025-01-26 | Outpatient (CLI) | payer MEDICARE, SELFPAY ==
[2025-01-26 12:11] LABS: Mucous, Urine 0 SEEN /hpf (<or=2+)
[2025-01-26 12:39] LABS: Hematocrit 45.2 % (40-54); Hemoglobin 14.4 g/dL (13.0-16.5); Mean Corp Hgb Conc 31.9 g/dL (32-36); Mean Corpuscular Volume 89.9 fL (80-94); Mean Platelet Vol. 8.6 fl (6.2-12.0); Platelet Count 269 K/mm3 (150-450); RBC Distribution Width CV 14.1 % (11.6-14.6); RBC Distribution Width SD 46.6 fl (35.1-43.9); Red Blood Count 5.03 M/mm3 (4.6-6.2); White Blood Count 6.7 K/mm3 (4.4-11.0)
[2025-01-26 12:54] LABS: Color, Urine Yellow (Yellow); Glucose, Dipstick 1000 mg/dl (Normal); Ketone-Dipstick Negative (Negative); Leukocyte Esterase-Dipstick 25 /ul (Negative); Nitrite-Dipstick Negative (Negative); Occult Blood-Urine Negative /ul (Negative); Protein-Dipstick 100 mg/dl (Negative); Specific Gravity, Urine 1.020 (1.002-1.030); Urine Bilirubin Dipstick Negative (Negative)
[2025-01-26 13:16] LABS: Anion Gap 10 (5-15); BUN 27 mg/dL (4-19); BUN/Creat Ratio 35.1 RATIO (10-20); Calcium,Total 9.6 mg/dL (7.6-11.0); Carbon Dioxide 25.3 mmol/L (21.0-32.0); Chloride 104 mmol/L (98-108); Glucose 144 mg/dL (70-99); Potassium 4.5 mmol/L (3.3-5.1)
[2025-01-26 13:18] LABS: Prothrombin Time (Protime)PT. 13.7 SECONDS (11.7-14.9)
[2025-01-26 13:35] LABS: D-Dimer Quantitative (DVT/PE) 2.87 FEU/ug/m (0.27-0.49)
[2025-01-26 13:37] LABS: Red Blood Cells-Urine 0-5 SEEN /hpf (0-5)
[2025-01-26 13:38] LABS: Squamous Epithelial Cells - UA 0-5 SEEN /hpf (0-5)
== END | disposition home or self-care (01) ==
LOC: LAB 12:08
PROVIDERS: PCP Family Medicine; Referring Provider Student in an Organized Health Care Education/Training Program; Visit Provider Student in an Organized Health Care Education/Training Program
DX: I50.20 Unspecified systolic (congestive) heart failure (principal); I42.9 Cardiomyopathy, unspecified
CPT/HCPCS: 36415; 80048; 81001; 85027; 85379; 85610

== ENCOUNTER 2025-02-03 13:33 | Observation (INO) | payer MEDICARE, SELFPAY ==
--- NOTE | 2025-01-26 12:40 | RAD_ITS ---
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 COMPARISON: No relevant prior studies available. FINDINGS: LUNGS AND PLEURAL SPACES: See below. HEART: Cardiomegaly with mild congestion. MEDIASTINUM: Unremarkable. Normal mediastinal contour. BONES/JOINTS: Unremarkable. No acute fracture. RAD/Chest PA and Lateral IMPRESSION: Cardiomegaly with mild congestion. Reading Location: [facility]
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
[2025-02-03] VITALS (15 sets, daily range): BP systolic 110–133; BP diastolic 58–74; PULSE 62–76; RESP 15–16; TEMP 36.1–37.1; O2SAT 94–99; BMI 47.2; BMI 47.7
[2025-02-03] MEDS: Lactated Ringers 1,000 ML 15 ML IV (09:33)
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
--- NOTE | 2025-02-03 13:39 | EX.DEFIBPR_ITS ---
Defibrillator Procedure Note Defibrillator Procedure Note Procedure: Successful Resynchronization ICD implantation with Coronary Sinus Pacing. Indication: Primary Prevention Nonischemic Cardiomyopathy NYHA Class III LVEF 25-30% LBBB, QRS 183 Findings: The patient was brought to the EP LAB in the fasting well-hydrated state and prepped and draped in the usual sterile fashion. Local anesthesia with 2% lidocaine was used to achieve a numbing effect in the LEFT pectoral region. In addition, iv anesthesia was administered by anesthesia personnel present throughout the case. An incision was made 2 fingerbreadths below the left clavicle and a pocket was made by blunt dissection. Bleeding vessels were coagulated using electrocautery. Using modified Seldinger technique, three guidewires was placed into the left axillary vein down to the low RA. Through a venous sheath the RV lead was passed into the RV apex. The active screw mechanism was extended. Adequate pacing and sensing thresholds were measured. Diaphragmatic stimulation was excluded with high output pacing. The introducer sheath was peeled away. Over a second guidewire a coronary sinus guiding sheath was placed into the low right atrium. The coronary sinus ostium was cannulated and using a guidewire the sheath was deep placed into the coronary sinus. A coronary sinus venogram was performed. This delineated two posterior lateral branches of the coronary sinus. Target was the distal posterior lateral branch. Using a 0.014 Whisper wire the lateral branch was accessed but the lead could not be pass distally. Usinga 0..014 in BMW wire, a quadripolar LV lead was passed into the distal portion of the subbranch. Adequate pacing and sensing thresholds were measured. Diaphragmatic stimulation was excluded with high output pacing. The introducer sheath was peeled away. Next using the third guidewire a introducer sheath was placed into the central circulation. Through the venous sheath an active-fixation right atrial lead was passed in the right atrium the active screw mechanism was deployed and the lead was attached to the myocardium. Adequate pacing and sensing thresholds were measured. Diaphragmatic stimulation was excluded with high output pacing. The introducer sheath was peeled away. The leads were secured in the pocket using 2-0 Silk with initial suture tie made to the pectoralis muscle and fascia, followed by wrapping around and tying securely to the lead sleeves. In addition, a purse string suture was tied around the leads entry site with 2-0 Vicryl for hemostasis. The leads were connected to the resynchronization ICD pulse generator. The pocket was irrigated with antibiotic solution. The pulse generator was placed into the pocket with redundant lead allowed to form a manohar coil behind the pulse generator. The device was secured to the pocket with 2-0 Silk. The pocket was irrigated with antibiotic solution. The pocket was closed in 2 layers with 2-0 and 3-0 Vicryl for the subcutaneous and subcuticular layers respectively. Hemostasis was achieved with manual pressure. Upon closure no bleeding was noted. A sterile dressing was applied. The patient was recovered and sent to their room in stable condition. Complications: none. Specimens: none. Estimated blood loss: 10mL. Contrast: 20mL Implanted Product Information Implant Date Metal Sheet Roller Operator Model Name Olu. Model Serial No. Location 02/03/2025 [facility] G247: VIGILANT X4 EMBROIDERER HAND-D IS-1/DF4/IS4 [id number] L - Subcutaneous 02/03/2025 [facility] 7841: INGEVITY+ IS-1 Bi Positive Fix RA/RV 52cm Bi [id number] RA 02/03/2025 [facility] 0673: RELIANCE 4-FRONT S Active Fix Single Coil 64cmBi [id number] RV 02/03/2025 [facility] 4677: ACUITY X4 Spiral L LVA Quad Electrode IS4 Passive 86 cm Quad [id number] LV Measured Data Device Measurements Lead Intrinsic Threshold Imp. Shock Imp. Current RA 9.5 mV 0.6V @ 0.4ms 627 ? 1.0 mA RV 14.0 mV 0.4V @ 0.4ms 990 ? 76 ? 0.4 mA LV 8.0 mV 1.8V @ 0.6ms 606 ? 3.0 mA (LVTip2 to RV) DFT Testing Information DFT Testing not Performed. Programmed Parameters Mode: DDD LRL / MTR : 60 ppm / 130 ppm PAV Delay: 200ms - 200ms GEMINI Delay: 160ms - 160ms PVARP: 240ms - 300ms LV Pace Vector: LVRing2 to RV LV Sense Vector: LVTip1 to LVRing2 Sensitivity Output RA 0.25 mV 3.5V @ 0.4ms RV 0.6 mV 3.5V @ 0.4ms LV 1 mV 3.5V @ 0.6ms ATR Mode Switch: On - 170 bpm Atrial Flutter Response: Off VRR: Off Rate Smoothing: Off Rate Hysteresis: Off BiV Trigger: On HeartLogic: On ICD Therapy Parameters Zone Rate Duration Detection Enhancements Therapy VF 210 bpm 2.5 sec. Quick Convert, 41J x 1, 41J x 1, 41J x 6 VT 185 bpm 5 sec. Onset/Stability ATP, 41J x 1, 41J x 1, 41J x 4 Lead Polarity: Initial Shock Vector: Distal Coil to Can Programmed Parameter Comments smart optimization, LV only
--- NOTE | 2025-02-03 13:55 | PCM.POST.ANE ---
Anesthesia: Postop Eval I Current Vital Signs Temperature: 97.8 F Pulse Rate: 65 Blood Pressure: 117/66 Respiratory Rate: 16 Pulse Ox: 94 Assessment Airway patent: Yes Spontaneous unlabored respirations: Yes nausea: No Vomiting: No Anesthesia Complication: No Fluid Hydration Crystalloid volume administer (ml): 500 Total IV fluid infused: 500 Progress Note Anesthesia document: Postop Eval 1 completed: Yes
--- NOTE | 2025-02-03 14:58 | POSTOPAN2_ITS ---
Anesthesia Postop Eval I Sum Postop Eval Completion status Anesthesia document: Postop Eval 1 completed: Yes Anesthesia Postop Eval I Summary Anesthesia Postop Eval I Summary: Anesthesia Postop Eval I: Assessment Summary Airway patent Yes 02/03/25 13:56 MOTORIZED [email or web address] [email or web address] Spontaneous unlabored Yes 02/03/25 13:56 MOTORIZED SQUAD [email or web address] respirations Mental status nausea No 02/03/25 13:56 MOTORIZED SQUAD [email or web address] Vomiting No 02/03/25 13:56 MOTORIZED SQUAD [email or web address] Anesthesia Postop Eval I: Fluid Summary Crystalloid volume administer 500 02/03/25 13:56 MOTORIZED SQUAD [email or web address] (ml) Colloids volume administered ( ml) Blood Product volume administered (ml) Total IV fluid infused 500 02/03/25 13:56 MOTORIZED [email or web address] [email or web address] Anesthesia Postop Eval I: Summary Notes Anesthesia Complication No 02/03/25 13:56 MOTORIZED SQUAD [email or web address] Anesthesia Complication Comment: Post-operative progress note Anesthesia: Postop Eval II Evaluation Mental status: Awake and Calm Pain Level: 1 nausea: No Vomiting: No Complications Anesthesia Complication: No
--- NOTE | 2025-02-03 14:58 | PCM.POSTANE2 ---
Anesthesia Postop Eval I Sum Postop Eval Completion status Anesthesia document: Postop Eval 1 completed: Yes Anesthesia Postop Eval I Summary Anesthesia Postop Eval I Summary: Anesthesia Postop Eval I: Assessment Summary Airway patent Yes 02/03/25 13:56 [email or web address] Spontaneous unlabored Yes 02/03/25 13:56 [email or web address] respirations Mental status nausea No 02/03/25 13:56 [email or web address] Vomiting No 02/03/25 13:56 [email or web address] Anesthesia Postop Eval I: Fluid Summary Crystalloid volume administer 500 02/03/25 13:56 [email or web address] (ml) Colloids volume administered ( ml) Blood Product volume administered (ml) Total IV fluid infused 500 02/03/25 13:56 [email or web address] Anesthesia Postop Eval I: Summary Notes Anesthesia Complication No 02/03/25 13:56 [email or web address] Anesthesia Complication Comment: Post-operative progress note Anesthesia: Postop Eval II Evaluation Mental status: Awake and Calm Pain Level: 1 nausea: No Vomiting: No Complications Anesthesia Complication: No
--- NOTE | 2025-02-03 15:45 | RAD_ITS ---
PROCEDURE: CHEST 1 VIEW (PORTABLE) 02/03/2025 REASON FOR EXAM: DO WITHIN 2-4 HOURS OF PROCEDURE TECHNIQUE: Frontal view of the chest. COMPARISON: 01/26/2025 FINDINGS: Devices: Interval placement of a left chest wall multilead ICD, with leads terminating appropriately within the region of the right atrial appendage, right ventricular apex, and probable coronary sinus. Lungs/Pleura: Clear. No pneumothorax or sizable pleural effusion. Heart/Mediastinum: Cardiomegaly, stable. Bones/Soft tissues: Degenerative changes of the spine and bilateral shoulders, with moderate-advanced left glenohumeral arthrosis. Left humeral head anchor screws, and right total reverse shoulder arthroplasty hardware partially imaged. RAD/Chest 1 View (Portable) IMPRESSION: Interval left chest wall multilead ICD placement, appropriately positioned. Stable cardiomegaly. No pneumothorax or pleural effusion. Reading Location: [id number]
[2025-02-03] MEDS: Cefazolin 2 GM in 0.9% Normal Saline (100mL Bag) 100 ML IV (18:49)
--- NOTE | 2025-02-03 19:38 | NURSING ---
upon admission pt stated he just self admin 1 tab of lasix 40mg. He stated that Dr. Grier told him to. Pt educated that his meds would be administered here as scheduled by nursing staff. This nurse encouraged spouse to take his own meds home. spouse agreed. All scheduled meds reviewed with pt and he stated all were correct and he would send other meds home with ..
[2025-02-03] MEDS: SACUBITRIL/VALSARTAN 49-51 MG TABLET 1 EACH PO (21:28)
[2025-02-04] MEDS: Cefazolin 2 GM in 0.9% Normal Saline (100mL Bag) 100 ML IV ×2 (01:27→09:46)
[2025-02-04 03:00] VITALS: PULSE 72
[2025-02-04 03:12] VITALS: BP 133/61; PULSE 71; RESP 17; TEMP 37; O2SAT 95
--- NOTE | 2025-02-04 05:30 | RAD_ITS ---
PROCEDURE: CHEST PA AND LATERAL 02/04/2025 REASON FOR EXAM: POST PERMANENT ICD/PACEMAKER TECHNIQUE: CHEST PA AND LATERAL COMPARISON: 02/03/2025 FINDINGS: Prominent fat pads. Normal heart size. Unremarkable cardiac device. Bilateral shoulder surgery. Lordotic positioning. Well inflated lungs. No consolidation, effusion or pneumothorax. RAD/Chest PA and Lateral IMPRESSION: Successful pacer placement. No pneumothorax. Reading Location: [facility]
--- NOTE | 2025-02-04 05:55 | EKG12_ITS ---
Test Reason : AM EKG Blood Pressure : */* mmHG Vent. Rate : 72 BPM Atrial Rate : 72 BPM P-R Int : 192 ms QRS Dur : 142 ms QT Int : 476 ms P-R-T Axes : 1 73 240 degrees QTcB Int : 521 ms Atrial-sensed ventricular-paced rhythm Abnormal ECG When compared with ECG of 26-Jan-2025 11:36, Electronic ventricular pacemaker has replaced Sinus rhythm Confirmed by NETO HADLEY, SHREE ([id number]), editor continuity and script HARSHA NELSON ([id number]) on 02/07/2025 9:46:12 AM Referred By: Marshall Amanda Confirmed By: SHREE DUQUE MD
[2025-02-04 09:38] VITALS: BP 133/71; PULSE 73; RESP 17; TEMP 37.2; O2SAT 95
[2025-02-04] MEDS: Potassium Chloride Oral Tablet 10 MEQ PO (09:45)
[2025-02-04] MEDS: Magnesium Chloride 64 MG Delay Rel.Tablet PO (09:45)
[2025-02-04] MEDS: Calcium Carb/Vitamin D 1 TABLET Tablet PO (09:45)
[2025-02-04] MEDS: SACUBITRIL/VALSARTAN 49-51 MG TABLET 1 EACH PO (09:45)
[2025-02-04] MEDS: Cholecalciferol (VIT D3) 25 MCG TABLET (1,000 UNITS) PO (09:45)
[2025-02-04] MEDS: 0.9% Saline Lock 10 ML Syringe IV (09:46)
--- NOTE | 2025-02-04 09:48 | DCINST_ITS ---
Discharge Instructions DC O2, CPAP, BIPAP needs Home O2 Discharge instructions: No Dressing / Incision Additional Activity Instructions:: Follow instructions that were given to you for post ICD implant. Dressing / Incision Call your doctor if your incision/area has: Continuous Slow Oozing, Sudden Increased Bleeding and Increased Redness Additional Dressing/Incision Instructions:: Follow the instructions that Sharon gave to you for post ICD implant. Follow Up Care Test Results: Test results from this visit will be discussed in further detail at your follow- up appointment, if applicable. Discharge Plan Admission Admit Date/Time: 02/03/25 13:33 Attending Provider: Marshall Amanda Primary Care Provider: Akiko Lion Instructions Additional Instructions / Restrictions: Keep your appointment with soon that is scheduled for February 10 at 2 PM. Discharge Orders/Prescriptions Prescriptions: Continued levothyroxine [Euthyrox] 200 mcg tablet 200 mcg PO QMWF Patient Comments: TAKE 1 TABLET BY MOUTH ON FRIDAY, FRIDAY AND FRIDAY glipizide 5 mg tablet extended release 24hr 5 mg PO DAILY Patient Comments: TAKE 1 TABLET BY MOUTH ONCE DAILY WITH FOOD cranberry fruit 400 mg tablet 400 mg PO DAILY Rx Instructions: administer with a meal docusate sodium 100 mg capsule 200 mg PO DAILY PRN (Reason: Constipation) famotidine 20 mg tablet 20 mg PO DAILY (DME) Oral appliance See Rx Instructions .ROUTE .MEDSUPPLY Qty: 1 0RF Rx Instructions: As directed sacubitril-valsartan [Entresto] 49-51 mg tablet 1 tab PO BID Qty: 180 3RF carvedilol 25 mg tablet 25 mg PO BID Qty: 180 3RF Rx Instructions: must administer with a meal/food tumeric 400 mg PO DAILY cayenne pepper 5 ml PO DAILY levothyroxine 175 MCG tablet 175 mcg PO SUTUTHSA cyanocobalamin (vitamin B-12) 500 MCG tablet 500 mcg PO DAILY@0800 magnesium 250 MG tablet 500 mg PO DAILY cholecalciferol (vitamin D3) 2,000 UNIT capsule 1,000 unit PO DAILY celecoxib 200 mg capsule 200 mg PO DAILY Patient Comments: PAIN calcium citrate-vitamin D3 315 mg-6.25 mcg (250 unit) tablet 1 tab PO DAILY omega 4-rid-dfh-fish oil 900-1,400 mg capsule,delayed release(DR/EC) 1 cap PO DAILY multivitamin Tablet 1 tab PO BID ascorbic acid (vitamin C) 1,000 mg Tablet 1,000 mg PO DAILY acetaminophen 500 mg Tablet 1,000 mg PO Q8 Qty: 0 0RF polysaccharide iron complex [Ferrex 150] 150 mg iron Capsule 150 mg PO DAILY 30 Days Qty: 30 0RF glucosamine-chondroitin 500-400 mg tablet 1 tab PO BID Jardiance 10 mg tablet 10 mg PO QDAY Qty: 90 3RF potassium chloride 10 mEq tablet extended release 10 meq PO DAILY Qty: 90 3RF furosemide 40 mg tablet 40 mg PO DAILY Qty: 90 3RF Referrals / Follow Up: Akiko Lion MD [Primary Care Provider] - Disposition Disposition (needs filled in before D/C Order can be placed): Home, Self Care
--- NOTE | 2025-02-04 10:59 | PHA.DC.MR.R ---
Pharmacy [place] Med Reconciliation Pharmacy Service has performed discharge medication reconciliation for this patient. The patient's discharge medication list was reviewed for discrepancies and discrepancies were resolved. Medications at Discharge Home Medications cholecalciferol (vitamin D3) 50 mcg (2,000 unit) capsule 1,000 unit PO DAILY SUPPLEMENT 10/31/16 cyanocobalamin (vitamin B-12) 500 mcg tablet 500 mcg PO DAILY@0800 SUPPLEMENT 10/31/16 levothyroxine 175 mcg tablet 175 mcg PO SUTUTHSA THYROID 10/31/16 magnesium 250 mg tablet 500 mg PO DAILY SUPPLEMENT 10/31/16 celecoxib 200 mg capsule 200 mg PO DAILY PAIN 03/30/18 ascorbic acid (vitamin C) 1,000 mg tablet 1,000 mg PO DAILY supplement 06/10/22 multivitamin 1 tab PO BID supplement 06/10/22 acetaminophen 500 mg tablet 1,000 mg (2 x 500 mg) PO Q8 #0 tabs 06/19/22 polysaccharide iron complex 150 mg iron capsule (Ferrex) 150 mg PO DAILY 30 days #30 caps 06/19/22 famotidine 20 mg tablet 20 mg PO DAILY 05/14/23 calcium 315 mg (as citrate)-vitamin D3 6.25 mcg (250 unit) tablet 1 tab PO DAILY SUUPLEMENT 05/22/23 cranberry fruit 400 mg tablet 400 mg PO DAILY 05/22/23 docusate sodium 100 mg capsule 200 mg PO DAILY PRN Constipation 05/22/23 glipizide 5 mg tablet, extended release 24 hr 5 mg PO DAILY 05/22/23 levothyroxine 200 mcg tablet (Euthyrox) 200 mcg PO QMWF 05/22/23 omega 7-lry-whq-fish oil 900 mg-1,400 mg capsule,delayed release 1 cap PO DAILY SUPPLEMENT 05/22/23 Oral appliance #1 ea 10/16/23 empagliflozin 10 mg tablet (Jardiance) 10 mg PO QDAY #90 tabs 09/13/24 potassium chloride 10 mEq tablet,extended release 10 meq PO DAILY #90 tabs 09/13/24 carvedilol 25 mg tablet 25 mg PO BID #180 tabs 09/27/24 sacubitril 49 mg-valsartan 51 mg tablet (Entresto) 1 tab PO BID #180 tabs 09/27/24 cayenne pepper 5 ml PO DAILY 12/31/24 tumeric 400 mg PO DAILY 12/31/24 glucosamine-chondroitin 500 mg-400 mg tablet 1 tab PO BID 02/01/25 furosemide 40 mg tablet 40 mg PO DAILY this is a dose increase #90 tabs 02/03/25
--- NOTE | 2025-02-04 11:20 | CASEMGMT ---
Patient has order for discharge. RN CM in to discuss needs at discharge. Patient denies needs or help at discharge. Patient had no further questions or concerns.
== END 2025-02-04 10:02 | disposition home or self-care (01) ==
LOC: SDC 14:04 → PCU 14:04
PROVIDERS: Admitting Provider Internal Medicine Clinical Cardiac Electrophysiology; PCP Family Medicine; Referring Provider Internal Medicine Clinical Cardiac Electrophysiology; Visit Provider Internal Medicine Clinical Cardiac Electrophysiology
DX: Z45.02 Encounter for adjustment and management of automatic implantable cardiac defibrillator (principal); I11.0 Hypertensive heart disease with heart failure; I50.22 Chronic systolic (congestive) heart failure; I42.8 Other cardiomyopathies; Z68.42 Body mass index [BMI] 45.0-49.9, adult; E66.01 Morbid (severe) obesity due to excess calories; E11.9 Type 2 diabetes mellitus without complications; Z87.891 Personal history of nicotine dependence; Z96.641 Presence of right artificial hip joint; I44.0 Atrioventricular block, first degree; G47.33 Obstructive sleep apnea (adult) (pediatric); I44.7 Left bundle-branch block, unspecified; Z79.84 Long term (current) use of oral hypoglycemic drugs; Z79.899 Other long term (current) drug therapy
CPT/HCPCS: 33225; 33249; 71045; 71046; 82962; 93005; 96365; 96366; 99221; C1892; A4216; C1769; C1894; G0378